=== PATIENT | female | born 1945 | race Caucasian/White ===

== ENCOUNTER 2016-04-22 12:22 | Inpatient (IN) | payer OTHER, MEDICAID ==
[~2016-04-22] VITALS: Ht 157.5 cm; Wt 66.0 kg
[~2016-04-22 12:22] MED LIST: IBUP400T22 PO; LORA-186 PO
[2016-04-22] MEDS ORDERED: ONDANSETRON 4 MG INJ IV STA (14:56)
[2016-04-22] MEDS ORDERED: morphine 4 MG/ML VIAL IV STA (14:56)
[2016-04-22] MEDS ORDERED: SOD CHLORIDE 0.9% 500 ML IV STA (14:56)
--- NOTE | 2016-04-22 15:41 | RADRPT ---
PROCEDURE: XR Chest AP portable CLINICAL INDICATION: Abdominal pain TECHNIQUE: An AP portable radiograph of the chest was submitted. COMPARISON: 03/27/2016 FINDINGS: Support Hardware: None Cardiovascular: The cardiovascular silhouette appears unremarkable, except for mild persistent aorti c tortuosity.. Lung Jaime: The lung jaime appear clear with no nodule, alveolar infiltrate, for a interstitial pr ominence evident. Pleural Spaces: No pneumothorax or pleural effusion is identified. Osseous Structures: Mild diffuse degenerative spine changes are again noted. Soft Tissues: The soft tissues appear generous. IMPRESSION: 1. Persistent aortic tortuosity. 2. Mild degenerative spine changes. Physician Melani Date Time Electronically viewed and signed by Physician Melani on 04/22/2016 15:41 /
[2016-04-22 15:53] LABS: BASOPHILS % 0.3 % (0.0-2.0); EOSINOPHILS # 0.4 10^3/ul (0.0-0.5); EOSINOPHILS % 6.8 % (0.0-7.0); HEMATOCRIT 35.6 % (37.0-47.0); HEMOGLOBIN 11.9 g/dl (12.0-16.0); LYMPHOCYTES # 1.9 10^3/ul (0.8-2.9); LYMPHOCYTES % 34.4 % (15.0-51.0); MEAN CORPUSCULAR HEMOGLOBIN 28.5 pg (29.0-33.0); MEAN CORPUSCULAR HGB CONC 33.4 g/dl (32.0-37.0); MEAN CORPUSCULAR VOLUME 85.3 fl (82.0-101.0); MEAN PLATELET VOLUME 7.7 fl (7.4-10.4); MONOCYTE # 0.3 10^3/ul (0.3-0.9); MONOCYTES % 5.1 % (0.0-11.0); NEUTROPHILS % 53.4 % (39.0-77.0); PLATELET COUNT 229 10^3/UL (140-440); RED BLOOD COUNT 4.18 10^6/ul (4.20-5.40); RED CELL DISTRIBUTION WIDTH 14.6 % (11.5-14.5); UNCORRECTED WBC 5.6 10^3/ul (4.8-10.8); WHITE BLOOD COUNT 5.6 10^3/ul (4.8-10.8)
--- NOTE | 2016-04-22 15:56 | RADRPT ---
PROCEDURE: CT Abdomen and Pelvis without contrast. CLINICAL INDICATION: Right lower quadrant abdominal pain. TECHNIQUE: Multiple contiguous axial CT images of the abdomen and pelvis were obtained without the administration of intravenous contrast. Coronal and sagittal reconstructions were also performed. CTDIvol (mGy): 10.73; Total Exam DLP (mGy-cm): 549.13. One or more of the following dose reduction techniques were utilized: - Automated exposure control. - Adjustment of the mA and/or kV according to patient size. - Use of iterative reconstruction technique. COMPARISON: None. FINDINGS: Limited imaging of the lower thorax is unremarkable. The liver and spleen are homogeneous in density. The liver is diffusely low in attenuation compatibl e with fatty infiltration. The gallbladder is not visualized. Cholecystectomy clips are not seen wi thin the gallbladder fossa. The pancreas and adrenal glands are unremarkable. The kidneys are symmetric in size. There are no nephroureteral stones. There is no hydronephrosis o r abnormal perinephric inflammation. The abdominal aorta is normal in caliber. Atherosclerotic calcification is present. There is no per iaortic / retroperitoneal lymphadenopathy. The stomach is collapsed. Mild dilatation of the ileum with intraluminal fecal material is present. There is a substantial amount of formed stool within the cecum with abrupt narrowing of the proxim al mid ascending colon. There is also pericolonic infiltration surrounding the cecum proximal mid a scending colon with scattered few tiny mesocolic lymph nodes. The appendix is normal. The bladder is collapsed. The uterus is absent. The adnexa are unremarkable. There is no free pelv ic fluid. There is no pelvic sidewall or inguinal lymphadenopathy. Lumbosacral degenerative disk disease is observed. Body wall soft tissues are unremarkable. IMPRESSION: Large amount of formed stool within the cecum with associated dilatation of the ileal small bowel wi th intraluminal fecal material. There is abrupt narrowing of the proximal midportion of the ascendi ng colon with infiltration of the immediate surrounding mesocolic fat. Tiny mesocolic lymph nodes a re also present. An obstructing colonic lesion of the proximal midportion of the ascending colon is concerning. Further characterization may be obtained with CT abdomen/pelvis with intravenous contra st. Fatty infiltration of the liver. RPTAT: HLST .Kimmy Maritza, MD, Date Time Electronically viewed and signed by .Kimmy Salas MD, on 04/22/2016 15:56 .T/
[2016-04-22 15:57] LABS: CONDITION 1; LH ANALYZER COMMENTS 1
[2016-04-22 16:01] LABS: ALBUMIN 4.3 g/dl (3.3-4.9)
[2016-04-22 16:04] LABS: ALBUMIN/GLOBULIN RATIO 1.1; BILIRUBIN,INDIRECT 0.3 mg/dl (0-1.1); BILIRUBIN,TOTAL 0.3 mg/dl (0.2-1.3); CALCIUM 9.1 mg/dl (8.4-10.2); CREATININE 0.62 mg/dl (0.44-1.00); TOTAL PROTEIN 8.2 g/dl (6.1-8.1)
[2016-04-22] MEDS ORDERED: IOHEXOL 300MG/ML 150 ML BTL ONE (17:30)
[2016-04-22] MEDS ORDERED: SOD CHLORIDE 0.9% 100 ML ONE (17:30)
--- NOTE | 2016-04-22 17:46 | ERA ---
ER Documentation Chief Complaint Date/Time DATE: 04/22/16 TIME: 17:44 Chief Complaint AP and cough X 1 month, yesterday inceased in severity aftyer eating fish. HPI 71-year-old female. Access Liaison use. The patient describes abdominal pain for approximately 1 month. The patient noticed that yesterday she had an episode of vomiting after eating fish. She denies any fevers chills or rash. She does describe occasional cough but not present currently. Abdominal pain is diffuse, moderate and nonradiating. ROS All systems reviewed and are negative except as per history of present illness. Medications Home Meds Discontinued Scripts Loratadine* (Claritin*) 10 Mg Tablet, 10 MG PO DAILY, #20 TAB Prov:EFE EPSTEIN PA-C 03/27/16 Ibuprofen* (Ibuprofen*) 400 Mg Tablet, 400 MG PO Q6H Y for PAIN, #30 TAB Prov:EFE EPSTEIN PA-C 03/27/16 Allergies Allergies: Coded Allergies: No Known Allergy (Unverified , 04/22/16) PMhx/Soc Medical and Surgical Hx: pt denies Medical Hx, pt denies Surgical Hx Hx Alcohol Use: No Hx Substance Use: No Hx Tobacco Use: No Smoking Status: Never smoker FmHx Family History: No diabetes Physical Exam Vitals Vital Signs Date Time Temp Pulse Resp B/P Pulse Ox O2 Delivery O2 Flow Rate FiO2 04/22/16 16:53 58 16 119/58 98 Room Air 04/22/16 12:35 98.8 75 16 114/73 97 Physical Exam General: Well developed, well nourished, no acute distress Head: Normocephalic, atraumatic. Eyes: Pupils equally reactive, EOM intact ENT: Moist mucous membranes Neck: Supple, no lymphadenopathy Respiratory: Lungs clear bilaterally, no distress Cardiovascular: RRR, no murmurs, rubs, or gallops Abdominal: Soft, mild diffuse tenderness without rebound or guarding : Deferred MSK: No edema, no unilateral swelling, 5/5 strength Neurologic: Alert and oriented, moving all extremities, normal speech, no focal weakness, no cerebellar signs Skin: No rash Psych: Normal mood Result Diagram: 04/22/16 1540 04/22/16 1540 Results 24 hrs Laboratory Tests Test 04/22/16 15:40 Alanine Aminotransferase (ALT/SGPT) 19IU/L Albumin 4.3g/dl Albumin/Globulin Ratio 1.10 Alkaline Phosphatase 88IU/L Anion Gap 17 Aspartate Amino Transf (AST/SGOT) 33IU/L Basophils # 0.010^3/ul Basophils % 0.3% Blood Morphology Comment Blood Urea Nitrogen 14mg/dl Calcium Level 9.1mg/dl Carbon Dioxide Level 24mmol/L Chloride Level 107mmol/L Creatinine 0.62mg/dl Direct Bilirubin 0.00mg/dl Eosinophils # 0.410^3/ul Eosinophils % 6.8% Globulin 3.90g/dl Glucose Level 88mg/dl Hematocrit 35.6% Hemoglobin 11.9g/dl Indirect Bilirubin 0.3mg/dl Lipase 74U/L Lymphocytes # 1.910^3/ul Lymphocytes % 34.4% Mean Corpuscular Hemoglobin 28.5pg Mean Corpuscular Hemoglobin Concent 33.4g/dl Mean Corpuscular Volume 85.3fl Mean Platelet Volume 7.7fl Monocytes # 0.310^3/ul Monocytes % 5.1% Neutrophils # 3.010^3/ul Neutrophils % 53.4% Nucleated Red Blood Cells # 0.010^3/ul Nucleated Red Blood Cells % 0.0/100WBC Platelet Count 07971^3/UL Potassium Level 4.0mmol/L Red Blood Count 4.1810^6/ul Red Cell Distribution Width 14.6% Sodium Level 144mmol/L Total Bilirubin 0.3mg/dl Total Protein 8.2g/dl White Blood Count 5.610^3/ul Current Medications Medications (Trade) Dose Ordered Sig/Jose Roberto Route PRN Reason Start Time Stop Time Status Last Admin Dose Admin Sodium Chloride (NS) 500 ml @ 500 mls/hr Q1H STAT IV 04/22/16 14:56 04/22/16 15:55 DC 04/22/16 16:03 Morphine Sulfate (morphine) 4 mg ONCE STAT IV 04/22/16 14:56 04/22/16 14:58 DC 04/22/16 16:02 Ondansetron HCl (Zofran Inj) 4 mg ONCE STAT IV 04/22/16 14:56 04/22/16 14:58 DC 04/22/16 16:02 IV Flush 10 ml 10 ml STK-MED ONCE .ROUTE 04/22/16 17:30 04/22/16 17:31 DC 04/22/16 17:44 Sodium Chloride (NS) 100 ml @ ud STK-MED ONCE .ROUTE 04/22/16 17:30 04/22/16 17:31 DC 04/22/16 17:44 Iohexol (Omnipaque 300mg/ ml) 150 ml STK-MED ONCE .ROUTE 04/22/16 17:30 04/22/16 17:31 DC 04/22/16 17:44 Ondansetron HCl (Zofran Inj) 4 mg BRIDGE ORDER PRN IV NAUSEA AND/OR VOMITING 04/22/16 18:00 04/23/16 17:59 Acetaminophen (Tylenol Tab) 650 mg ER BRIDGE PRN PO MILD PAIN/FEVER 04/22/16 18:00 04/23/16 17:59 Procedures/MDM EKG, MONITORS, & DIAGNOSTIC IMAGING: Chest x-ray: I reviewed and interpreted a 1 view of the chest Mediastinum: No enlargement Cardiac silhouette: No cardiomegaly Airspace: Clear lung jaime bilaterally without evidence of pneumothorax Bones: No evidence of fracture CT w/o IMPRESSION: Large amount of formed stool within the cecum with associated dilatation of the ileal small bowel with intraluminal fecal material. There is abrupt narrowing of the proximal midportion of the ascending colon with infiltration of the immediate surrounding mesocolic fat. Tiny mesocolic lymph nodes are also present. An obstructing colonic lesion of the proximal midportion of the ascending colon is concerning. Further characterization may be obtained with CT abdomen/pelvis with intravenous contrast. Fatty infiltration of the liver. CT w/ Contrast IMPRESSION: As seen on the CT earlier today, there is circumferential mucosal thickening of the proximal ascending colon measuring a length of 3.5 cm highly suspicious for an obstructing colonic neoplasm. There is resulting marked dilatation and formed stool seen in the cecum and terminal ileum. Recommend follow-up with colonoscopy and tissue sampling. There is pericolonic inflammatory changes and a superimposed enteritis is possible. The gallbladder is absent which may be related to prior cholecystectomy. There is intra and extrahepatic biliary dilatation which may be physiologic after cholecystectomy. Consider correlation with bilirubin values. RPTAT: AA LAB INTERPRETATION: No acute process is noted MEDICAL DECISION MAKING: The patient has abdominal pain. Unclear etiology however given the patient's tenderness and age CT imaging would be appropriate. Broad differential includes obstruction, acute intra-abdominal process. ER COURSE: CT imaging is very concerning for possible colonic mass which would explain the patient's symptoms. Radiology recommends CT with contrast which has been performed which confirms likely diagnosis. The patient will benefit from inpatient hospitalization, malignancy screening and likely colonoscopy nonemergent GI consultation will be appropriate. Admitting team will notify. I kept the patient and/or family informed of laboratory and diagnostic imaging results throughout the emergency room course. DISPOSITION PLAN: Medical surgical admission CONSULTATION: Accepting care team and consultations: I discussed the current laboratory data, diagnostic imaging and emergency care provided. Admitting team: Dr. Infante Admitting team indication: Insurance directed Departure Diagnosis: Primary Impression: Colonic mass Additional Impression: Abdominal pain Qualified Code: R10.9 - Abdominal pain, unspecified location Condition: Stable KYLIE LR MD Apr 22, 2016 17:46
[2016-04-22] MEDS ORDERED: ONDANSETRON 4 MG INJ IV PRN (18:00)
[2016-04-22] MEDS ORDERED: ACETAMINOPHEN 325 MG TAB PO PRN ×2 (18:00→19:00)
--- NOTE | 2016-04-22 18:03 | RADRPT ---
PROCEDURE: CT Abdomen and Pelvis with contrast. CLINICAL INDICATION: Abdominal pain TECHNIQUE: CT scan of the abdomen and pelvis with contrast was performed on a multidetector high-r esolution CT scanner. Coronal and sagittal reformatted images were obtained from the axial source im ages. Images were reviewed on a high-resolution PACS workstation. 80 cc of Isovue 300 iodinated cont rast was administered intravenously without reported complication. The total exam CTDI equals 12 mG y and the total exam DLP equals 612 mGy-cm. COMPARISON: Abdominal CT today FINDINGS: The lung bases are clear. No focal hepatic mass is identified. There is intrahepatic and extrahepatic biliary dilatation. Th e gallbladder is absent. The pancreas, spleen and adrenals are unremarkable. No hydronephrosis. No obstructing renal stone. As seen on the CT earlier in the day. There is circumferential mucosal thickening of the proximal a scending colon measuring a length of 3.5 cm with associated pericolonic inflammatory stranding. The re is resulting bowel obstruction with formed stool seen within the cecum. A few small regional prom inent lymph nodes are seen. There is also marked dilatation of the terminal ileum. The appendix is also mildly dilated. No bulky retroperitoneal lymphadenopathy or evidence of pneumoperitoneum. Aortoiliac atherosclerosis. Degenerative changes of the spine. IMPRESSION: As seen on the CT earlier today, there is circumferential mucosal thickening of the proximal ascendi ng colon measuring a length of 3.5 cm highly suspicious for an obstructing colonic neoplasm. There is resulting marked dilatation and formed stool seen in the cecum and terminal ileum. Recommend foll ow-up with colonoscopy and tissue sampling. There is pericolonic inflammatory changes and a superim posed enteritis is possible. The gallbladder is absent which may be related to prior cholecystectomy. There is intra and extrahe patic biliary dilatation which may be physiologic after cholecystectomy. Consider correlation with b ilirubin values. RPTAT: AA .Fito Jacobs MD, Date Time Electronically viewed and signed by .Fito Jacobs MD, on 04/22/2016 18:03 .T/
[2016-04-22] MEDS ORDERED: MAGNESIUM HYDROXIDE 30ML CUP PO PRN (19:00)
[2016-04-22] MEDS ORDERED: LORAZEPAM 2 MG INJ IV PRN (19:00)
[2016-04-22] MEDS ORDERED: ALBUTEROL/IPRATROPIUM (NEB) 3 ML AMP HHN PRN (19:00)
[2016-04-22] MEDS ORDERED: NA PHOSPHATE/BIPHOS 133 ML ENEMA PR PRN (19:00)
[2016-04-22] MEDS ORDERED: NITROGLYCERIN (SL) 0.4 MG TAB SL PRN (19:00)
[2016-04-22] MEDS ORDERED: NACL 0.9% 3 ML SYG IV SCH (19:00)
[2016-04-22] MEDS ORDERED: DOCUSATE SODIUM 100 MG CAP PO PRN (19:00)
[2016-04-22 20:15] VITALS: TEMP 98.5
[2016-04-22 21:28] VITALS: Ht 157.5 cm; Wt 66.0 kg
[2016-04-22 22:00] VITALS: BP 128/74; PULSE 80; RESP 18
[2016-04-22] MEDS: HEPARIN 5,000 UNIT/0.5 ML SYG SC SCH (22:37)
[2016-04-23] MEDS: HYDROCODONE/APAP (5/325) TAB PO PRN ×3 (01:38→22:35)
[2016-04-23 06:03] LABS: CHOL/HDL RATIO 4.5 RATIO
[2016-04-23] MEDS: PANTOPRAZOLE 40 MG INJ IV SCH (06:28)
[2016-04-23 06:34] LABS: BASOPHILS % 0.4 % (0.0-2.0); EOSINOPHILS # 0.2 10^3/ul (0.0-0.5); EOSINOPHILS % 4.9 % (0.0-7.0); HEMATOCRIT 32.8 % (37.0-47.0); HEMOGLOBIN 11.1 g/dl (12.0-16.0); LYMPHOCYTES # 2.2 10^3/ul (0.8-2.9); LYMPHOCYTES % 49.3 % (15.0-51.0); MEAN CORPUSCULAR HEMOGLOBIN 29.1 pg (29.0-33.0); MEAN CORPUSCULAR HGB CONC 33.8 g/dl (32.0-37.0); MEAN CORPUSCULAR VOLUME 86.1 fl (82.0-101.0); MEAN PLATELET VOLUME 7.6 fl (7.4-10.4); MONOCYTE # 0.4 10^3/ul (0.3-0.9); NEUTROPHIL # 1.7 10^3/ul (1.6-7.5); NEUTROPHILS % 37.4 % (39.0-77.0); PLATELET COUNT 223 10^3/UL (140-440); RED BLOOD COUNT 3.81 10^6/ul (4.20-5.40); RED CELL DISTRIBUTION WIDTH 14.6 % (11.5-14.5); UNCORRECTED WBC 4.4 10^3/ul (4.8-10.8); WHITE BLOOD COUNT 4.4 10^3/ul (4.8-10.8)
[2016-04-23 06:39] LABS: CONDITION 1; LH ANALYZER COMMENTS 1
[2016-04-23 07:13] LABS: POTASSIUM 3.7 mmol/L (3.5-5.1)
[2016-04-23 07:15] LABS: CREATININE 0.67 mg/dl (0.44-1.00)
[2016-04-23 07:16] LABS: CALCIUM 8.5 mg/dl (8.4-10.2)
[2016-04-23 07:33] LABS: THYROID STIMULATING HORMONE 1.33 MIU/L (0.465-4.680)
[2016-04-23 08:39] VITALS: BP 111/58; RESP 20
[2016-04-23] MEDS: HEPARIN 5,000 UNIT/0.5 ML SYG SC SCH ×2 (08:53→21:53)
--- NOTE | 2016-04-23 09:04 | HP ---
DATE OF ADMISSION: 04/22/2016 TIME: 10 p.m. CHIEF COMPLAINT: Abdominal pain. HISTORY OF PRESENT ILLNESS: The patient is a 71-year-old female with no past medical history. The patient presents with 1 day of abdominal pain. She did have an episode of emesis. Describes any pr ior symptoms of abdominal pain like this. She does report some occasional cough. She states that t he pain did improve with morphine given to her. She has no other complaints at this time. PAST MEDICAL HISTORY: Denies. PAST SURGICAL HISTORY: Hysterectomy for unknown reasons 30 years ago in [facility]. Likely cholec ystectomy. HOME MEDICATIONS: None. ALLERGIES: NO KNOWN DRUG ALLERGIES. FAMILY HISTORY: Denies. SOCIAL HISTORY: History of alcohol, tobacco and drug abuse in the past when she was young Denies an y use of them at this time. REVIEW OF SYSTEMS: A 12-point review of systems is negative except for that discussed in HPI. PHYSICAL EXAMINATION: VITAL SIGNS: Temperature is 98.0, pulse 80, respiratory rate is 18, BP is 120/74, saturation s 98% on room air. GENERAL: No acute distress, alert and oriented. German-speaking. HEENT: Normocephalic, atraumatic. LUNGS: Clear to auscultation. CARDIOVASCULAR: Regular rate and rhythm. ABDOMEN: Nondistended, nontender, soft. EXTREMITIES: No clubbing, cyanosis, or edema. LABORATORIES: White count 7.6, hemoglobin is 11.9, platelets are 229. Chemistry within normal limi ts except for anion gap is slightly elevated at 17, total protein is 8.2. DIAGNOSTICS: Chest x-ray shows persistent aortic tortuosity, mild degenerative spine changes. Abdo ria pelvis CT does show mucosal thickening of the proximal ascending colon measuring 2.5 cm, highly suspicious for an obstructing colonic neoplasm. There is resulting marked dilation of forme d stool seen in the cecum and terminal ileum. Recommend [facility]. There is pericolonic inflammatory changes and a superimposed enteritis possible. ASSESSMENT AND PLAN: 1. Abdominal pain with possible colonic mass. Will get a GI consultation for colonoscopy. Will ch lindsey tumor markers with a CEA and CA 19-9 and 125 as well as AFP. The patient's pain has resolved at this time. She denies any changes in her bowel movements. 2. Normocytic anemia is mild. Will monitor. 3. Prophylaxis. Heparin. Dictated By: YELENA COELHO/LAURA Conf#: [id number] DID#: [id number]
--- NOTE | 2016-04-23 13:38 | RADRPT ---
Echocardiogram Report Patient Name: CIARA GLEASON Gender: Female Date: 1945 Study Date: 23-Apr-2016 Tower Watchman: Won Chong [facility] Location: 2266 Ref. Physician: MICHAEL FUCHS Quality: Good Procedures: Transthoracic echocardiogram with complete 2D, M-Mode, and doppler examination. Indications: Shortness of breath. 2D/M Mode Doppler Measurement Value Normal Ranges Measurement Value Normal Ranges LVIDd 2D 4.1 3.5 - 5.6 cm AV Peak Orestes 1.4 m/sec LVIDs 2D 2.2 2.1 - 4.1 cm AV Peak PG 7.3 mmHg LVPWd 2D 1.0 0.6 - 1.1 cm LVOT Peak Orestes 1.1 m/sec IVSd 2D 1.0 0.6 - 1.1 cm LVOT Peak PG 4.8 mmHg AoR Diam 2D 2.4 2.0 - 3.7 cm MV E Peak Orestes 0.9 m/sec EDV 2D 72.3 cm3 MV A Peak Orestes 0.7 m/sec ESV 2D 10.0 cm3 MV E/A 1.3 LA Dimen 2D 3.1 2.3 - 4.0 cm MV Decel Time 183 msec MV Decel [place] 5 MV E/A 1.3 TR Peak Orestes 2.0 m/sec TR Peak PG 16.2 mmHg RVSP 19.0 mmHg Findings Left Ventricle: Normal left ventricular systolic function. Normal left ventricular cavity size. Normal left ventricular wall thickness. Ejection fraction is visually estimated at 65 %. Right Ventricle: Normal right ventricular size. Normal right ventricular systolic function. Left Atrium: The left atrium is normal in size. Right Atrium: The right atrium is normal in size. Mitral Valve: Normal appearance and function of the mitral valve with trace physiologic regurgitation. Aortic Valve: Normal appearance of the aortic valve. No significant aortic stenosis or insufficiency. Tricuspid Valve: Normal appearance and function of the tricuspid valve with trace physiologic regurgitation. Estimated peak PA systolic pressure 19 mmHg. Pericardium: Normal pericardium with no significant pericardial effusion. Aorta: Normal aortic root. IVC: Normal size and normal respiratory collapse consistent with normal right atrial pressure. Conclusions Normal left ventricular systolic function. Normal left ventricular cavity size. Normal left ventricular wall thickness. Ejection fraction is visually estimated at 65 %. No significant valvular stenosis or regurgitation seen. Estimated peak PA systolic pressure 19 mmHg based on RA pressure of 3 mmHg. Electronically Signed By: Juarez Boss 23-Apr-2016 13:37:34 -0800 Patient Name: CIARA GLEASON Study Date: 23-Apr-[id number]
--- NOTE | 2016-04-23 15:23 | PN ---
DATE: 04/23/2016 SUBJECTIVE: The patient has less abdominal pain, no nausea, no vomiting. Asking when she can go ho me. Still waiting to be seen by GI team. OBJECTIVE: VITAL SIGNS: Stable. GENERAL: The patient lying in bed, answering questions, in no acute distress. HEENT: Pupils equal, round, reactive to light. Extraocular muscles intact. NECK: Supple, no thyromegaly. LUNGS: Clear to auscultation bilaterally. CARDIOVASCULAR: S1, S2 heard. No rubs or gallops. ABDOMEN: Soft, nontender, nondistended. Normal bowel sounds. No rebound or guarding. MUSCULOSKELETAL: No lower extremity edema bilaterally. NEUROLOGIC: No focal deficits. LABORATORY DATA: The basic metabolic panel was normal today. The triglycerides are 195, but the re st of the cholesterol panel was normal. Thyroid panel was normal. CBC is normal. ASSESSMENT AND PLAN: This is a 71-year-old female with no significant past medical history presenti with abdominal pain found with mucosal thickening of the proximal ascending colon measuring about 2 to 3 cm, highly suspicious for obstructing colon neoplasm. 1. Abdominal pain. Again, there is possible finding of colon mass. We will keep the patient on ga d/surg floor. We will start her on clear liquid diet since she is hungry. We will check tumor mar kers, CEA, CA 19-9, CA125 and AFP as there is a concern of possible malignancy here. Will get a GI consult. The patient would benefit from a colonoscopy and biopsy of the mass. Consider hematology/ oncology consult as well. Continue pain control with morphine and [place] p.r.n. as well. Antiemetic control with Zofran p.r.n. 2. Normocytic anemia. No signs of any bleeding. Hemoglobin and hematocrit are stable. Monitor fo r now. 3. Gastrointestinal prophylaxis, proton pump inhibitor. 4. Deep venous thrombosis prophylaxis, heparin subcutaneously. 5. Consider PT consult as well. Dictated By: MICHAEL GILLESPIE Conf#: [id number] DID#: [id number]
[2016-04-23] MEDS ORDERED: MAGNESIUM CITRATE 300 ML BTL PO ONE (18:30)
[2016-04-23] MEDS ORDERED: BISACODYL (EC) 5 MG TAB PO ONE ×2 (18:30→23:00)
--- NOTE | 2016-04-23 18:57 | CONS ---
Date/Time of Note Date/Time of Note DATE: 04/23/16 TIME: 18:55 Assessment/Plan Assessment/Plan Additional Assessment/Plan Abdominal pain/nausea/vomiting, improving Normocytic anemia * Monitor H&H every 6 hours, transfuse 2 units for hemoglobin less than 7.5 * PPI therapy Rectal mass * Colonoscopy with Dr. Maxwell tomorrow afternoon * Bowel prep Obesity Further recommendations depend on clinical course Patient seen in collaboration with Dr. Maxwell Consultation Date/Type/Reason Admit Date/Time Apr 22, 2016 at 17:47 Initial Consult Date Type of Consultation: Gastroenterology Reason for Consultation colonic mass 24 HR Interval Summary Free Text/Dictation 71-year-old Amharic-speaking female presented to ED with complaints of 1 day of abdominal pain, with nausea and nonbloody bilious emesis. Denies previous episode, GERD, diarrhea, hematochezia. CT of abdomen notes: As seen on the CT earlier today, there is circumferential mucosal thickening of the proximal ascending colon measuring a length of 3.5 cm highly suspicious for an obstructing colonic neoplasm. There is resulting marked dilatation and formed stool seen in the cecum and terminal ileum. Recommend follow-up with colonoscopy and tissue sampling. There is pericolonic inflammatory changes and a superimposed enteritis is possible. Patient consents to colonoscopy, advised of risks/benefits/alternatives and is agreeable to proceed. Exam/Review of Systems Vital Signs Vitals Vital Signs Date Time Temp Pulse Resp B/P Pulse Ox O2 Delivery O2 Flow Rate FiO2 04/23/16 08:39 98.0 58 20 111/58 94 04/22/16 22:00 Room Air Exam Constitutional: alert, obese, oriented, well developed Psych: nl mood/affect, no complaints ENMT: nl external ears & nose, nl lips & teeth, nl nasal mucosa & septum Respiratory: clear to auscultation Cardiovascular: regular rate and rhythm Gastrointestinal: soft, tender (Lower abdomen) Neurological: WHEEL MOLDER II-XII intact Results Result Diagram: 04/23/16 0516 04/23/16 0516 Results 24 hrs Laboratory Tests Test 04/22/16 19:10 04/23/16 05:16 Free Thyroxine 0.97 Anion Gap 16 Basophils # 0.0 Basophils % 0.4 Blood Morphology Comment Blood Urea Nitrogen 15 Calcium Level 8.5 Carbon Dioxide Level 25 Chloride Level 106 Cholesterol Level 165 Cholesterol/HDL Ratio 4.5 Creatinine 0.67 Eosinophils # 0.2 Eosinophils % 4.9 Glucose Level 105 HDL Cholesterol 36 Hematocrit 32.8 L Hemoglobin 11.1 L Hemoglobin A1c 5.8 LDL Cholesterol, Calculated 90 Lymphocytes # 2.2 Lymphocytes % 49.3 Mean Corpuscular Hemoglobin 29.1 Mean Corpuscular Hemoglobin Concent 33.8 Mean Corpuscular Volume 86.1 Mean Platelet Volume 7.6 Monocytes # 0.4 Monocytes % 8.0 Neutrophils # 1.7 Neutrophils % 37.4 L Nucleated Red Blood Cells # 0.0 Nucleated Red Blood Cells % 0.0 Platelet Count 223 Potassium Level 3.7 Red Blood Count 3.81 L Red Cell Distribution Width 14.6 H Sodium Level 143 Thyroid Stimulating Hormone (TSH) 1.330 Triglycerides Level 195 H White Blood Count 4.4 #L Medications Medications Current Medications Ondansetron HCl (Zofran Inj) 4 mg Q6H PRN IV NAUSEA AND/OR VOMITING; Start 04/22 at 19:00 Acetaminophen (Tylenol Tab) 650 mg Q6H PRN PO PAIN LEVEL 1-3 OR FEVER; Start at 19:00 Acetaminophen/ Hydrocodone Bitart ([place] (5/325)) 1 tab Q6H PRN PO MODERATE PAIN LEVEL 4-6 Last administered on 04/23/16 08:57; Admin Dose 1 TAB; Start 04/22 at 19:00 Morphine Sulfate (morphine) 2 mg Q4H PRN IV SEVERE PAIN LEVEL 7-10; Start at 19:00 Docusate Sodium (Colace) 100 mg Q12H PRN PO CONSTIPATION; Start 04/22/16 at 19: 00 Magnesium Hydroxide (Milk Of Mag) 30 ml DAILY PRN PO CONSTIPATION; Start at 19:00 Sodium Biphosphate/ Sodium Phosphate (Fleet Enema) 133 ml DAILY PRN [place] CONSTIPATION; Start 04/22/16 at 19:00 Heparin Sodium (Porcine) (Heparin (5000 Units/0.5 ml)) 5,000 unit Q12 SC Last administered on 04/23/16 08:53; Admin Dose 5,000 UNIT; Start 04/22/16 at 21:00 Lorazepam (Ativan) 0.5 mg Q6H PRN IV ANXIETY; Start 04/22/16 at 19:00 Nitroglycerin (Nitroglycerin (Sl Tab) 0.4 Mg) 1 tab Q5M PRN SL ANGINA; Start at 19:00 Pantoprazole (Protonix Iv) 40 mg DAILY@06 IV Last administered on 04/23/16t 06: 28; Admin Dose 40 MG; Start 04/23/16 at 06:00 Fenofibrate (Tricor) 48 mg DAILY PO ; Start 04/24/16 at 09:00 Polyethylene Glycol (Miralax) 119 gm ONCE ONCE PO ; Start 04/23/16 at 21:00; Stop 04/23/16 at 21:01 MICKI VALDIVIA Apr 23, 2016 18:57
[2016-04-23 19:49] VITALS: BP 144/69; RESP 20
[2016-04-23] MEDS ORDERED: POLYETHYLENE GLYCOL 3350 119 GM POWDER PO ONE ×2 (21:00→23:00)
[2016-04-23 22:23] LABS: CARCINOEMBRYONIC ANTIGEN 7.5 ng/ml (0.0-5.0)
[2016-04-23 22:27] LABS: CANCER ANTIGEN 19-9 10.6 U/ml (0.0-37.0)
[2016-04-24] VITALS (8 sets, daily range): BP systolic 101–140; BP diastolic 55–86; PULSE 64–69; RESP 11–20
[2016-04-24] MEDS: PANTOPRAZOLE 40 MG INJ IV SCH (05:13)
[2016-04-24 05:47] LABS: INR 1.02; PARTIAL THROMBOPLASTIN TIME 27.1 Sec (25.0-35.0); PROTIME 13.4 Sec (12.2-14.2)
[2016-04-24 06:07] LABS: BASOPHILS % 0.4 % (0.0-2.0); EOSINOPHILS # 0.3 10^3/ul (0.0-0.5); EOSINOPHILS % 5.2 % (0.0-7.0); HEMATOCRIT 34.9 % (37.0-47.0); HEMOGLOBIN 11.9 g/dl (12.0-16.0); LYMPHOCYTES # 1.4 10^3/ul (0.8-2.9); LYMPHOCYTES % 26.7 % (15.0-51.0); MEAN CORPUSCULAR HEMOGLOBIN 29.2 pg (29.0-33.0); MEAN CORPUSCULAR HGB CONC 34.1 g/dl (32.0-37.0); MEAN CORPUSCULAR VOLUME 85.8 fl (82.0-101.0); MEAN PLATELET VOLUME 8.1 fl (7.4-10.4); MONOCYTE # 0.3 10^3/ul (0.3-0.9); MONOCYTES % 4.7 % (0.0-11.0); NEUTROPHIL # 3.4 10^3/ul (1.6-7.5); PLATELET COUNT 234 10^3/UL (140-440); RED BLOOD COUNT 4.07 10^6/ul (4.20-5.40); RED CELL DISTRIBUTION WIDTH 14.5 % (11.5-14.5); UNCORRECTED WBC 5.4 10^3/ul (4.8-10.8); WHITE BLOOD COUNT 5.4 10^3/ul (4.8-10.8)
[2016-04-24 06:14] LABS: CONDITION 1
[2016-04-24 06:15] LABS: LH ANALYZER COMMENTS 1
[2016-04-24 07:01] LABS: POTASSIUM 3.6 mmol/L (3.5-5.1)
[2016-04-24 07:04] LABS: CREATININE 0.67 mg/dl (0.44-1.00)
[2016-04-24] MEDS: FENOFIBRATE 48 MG TAB PO SCH (09:00)
[2016-04-24] MEDS: HEPARIN 5,000 UNIT/0.5 ML SYG SC SCH ×2 (09:00→20:12)
--- NOTE | 2016-04-24 13:38 | PN ---
Date/Time of Note Date/Time of Note DATE: 04/24/16 TIME: 13:32 Assessment/Plan VTE Prophylaxis VTE Prophylaxis Intervention: heparin Lines/Catheters IV C[facility]ter Type [facility]from [facility] [place] Urinary Cath still in place: No Assessment/Plan Chief Complaint/Hosp Course ASSESSMENT AND PLAN: 71-year-old female with no significant past medical history presenting with abdominal pain found with mucosal thickening of the proximal ascending colon measuring about 2 to 3 cm, highly suspicious for obstructing colon neoplasm. 1. Abdominal pain. Again, there is possible finding of colon mass. - continue med/surg floor care. - f/u CEA, CA 19-9, CA125 and AFP as there is a concern of possible malignancy here. - appreciate GI consult, plan for colonscopy later today. - Consider hematology/oncology consult as well. - Continue pain control with morphine and [place] p.r.n. as well. - Antiemetic control with Zofran p.r.n. 2. Normocytic anemia. No signs of any bleeding. Hemoglobin and hematocrit are stable. Monitor for now. 3. Gastrointestinal prophylaxis, proton pump inhibitor. 4. Deep venous thrombosis prophylaxis, heparin subcutaneously. Problems: Subjective 24 Hr Interval Summary Free Text/Dictation Seen by GI team, denies abd pain. Awaiting colonscopy for later today. Exam/Review of Systems Vital Signs Vitals Vital Signs Date Time Temp Pulse Resp B/P Pulse Ox O2 Delivery O2 Flow Rate FiO2 04/24/16 07:54 98.3 78 20 101/59 98 04/22/16 22:00 Room Air Intake and Output 04/23/16 04/23/16 04/24/16 15:00 23:00 07:00 Intake Total 680 ml 2000 ml Output Total 4 ml Balance 676 ml 2000 ml Exam GENERAL: The patient lying in bed, answering questions, in no acute distress. HEENT: Pupils equal, round, reactive to light. Extraocular muscles intact. NECK: Supple, no thyromegaly. LUNGS: Clear to auscultation bilaterally. CARDIOVASCULAR: S1, S2 heard. No rubs or gallops. ABDOMEN: Soft, nontender, nondistended. Normal bowel sounds. No rebound or guarding. MUSCULOSKELETAL: No lower extremity edema bilaterally. NEUROLOGIC: No focal deficits. Results Result Diagram: 04/24/1641904/24/16419 Results 24 hrs Laboratory Tests Test 04/23/16 16:37 04/24/16 04:20 Alpha Fetoprotein 2.98 CA 125 Antigen 6.0 CA 19-9 Antigen 10.6 Carcinoembryonic Antigen 7.5 H Activated Partial Thromboplast Time 27.1 Anion Gap 16 Basophils # 0.0 Basophils % 0.4 Blood Morphology Comment Blood Urea Nitrogen 14 Calcium Level 9.0 Carbon Dioxide Level 26 Chloride Level 104 Creatinine 0.67 Eosinophils # 0.3 Eosinophils % 5.2 Glucose Level 124 Hematocrit 34.9 L Hemoglobin 11.9 L INR International Normalized Ratio 1.02 Lymphocytes # 1.4 Lymphocytes % 26.7 Mean Corpuscular Hemoglobin 29.2 Mean Corpuscular Hemoglobin Concent 34.1 Mean Corpuscular Volume 85.8 Mean Platelet Volume 8.1 Monocytes # 0.3 Monocytes % 4.7 Neutrophils # 3.4 Neutrophils % 63.0 Nucleated Red Blood Cells # 0.0 Nucleated Red Blood Cells % 0.0 Platelet Count 234 Potassium Level 3.6 Prothrombin Time 13.4 Prothrombin Time Ratio 1.0 Red Blood Count 4.07 L Red Cell Distribution Width 14.5 Sodium Level 142 White Blood Count 5.4 # Medications Medications Current Medications Ondansetron HCl (Zofran Inj) 4 mg Q6H PRN IV NAUSEA AND/OR VOMITING; Start 04/22 at 19:00 Acetaminophen (Tylenol Tab) 650 mg Q6H PRN PO PAIN LEVEL 1-3 OR FEVER; Start at 19:00 Acetaminophen/ Hydrocodone Bitart ([place] (5/325)) 1 tab Q6H PRN PO MODERATE PAIN LEVEL 4-6 Last administered on 04/23/16t 22:35; Admin Dose 1 TAB; Start 04/22 at 19:00 Morphine Sulfate (morphine) 2 mg Q4H PRN IV SEVERE PAIN LEVEL 7-10; Start at 19:00 Docusate Sodium (Colace) 100 mg Q12H PRN PO CONSTIPATION; Start 04/22/16 at 19: 00 Magnesium Hydroxide (Milk Of Mag) 30 ml DAILY PRN PO CONSTIPATION; Start at 19:00 Sodium Biphosphate/ Sodium Phosphate (Fleet Enema) 133 ml DAILY PRN [place] CONSTIPATION; Start 04/22/16 at 19:00 Heparin Sodium (Porcine) (Heparin (5000 Units/0.5 ml)) 5,000 unit Q12 SC Last administered on 04/23/16 21:53; Admin Dose 5,000 UNIT; Start 04/22/16 at 21:00 Lorazepam (Ativan) 0.5 mg Q6H PRN IV ANXIETY; Start 04/22/16 at 19:00 Nitroglycerin (Nitroglycerin (Sl Tab) 0.4 Mg) 1 tab Q5M PRN SL ANGINA; Start at 19:00 Pantoprazole (Protonix Iv) 40 mg DAILY@06 IV Last administered on 04/24/16 05: 13; Admin Dose 40 MG; Start 04/23/16 at 06:00 Fenofibrate (Tricor) 48 mg DAILY PO ; Start 04/24/16 at 09:00 MICHAEL FUCHS Apr 24, 2016 13:38
[2016-04-24] MEDS ORDERED: PROPOFOL 40 ML ONE (16:25)
[2016-04-25] MEDS: PANTOPRAZOLE 40 MG INJ IV SCH (06:25)
[2016-04-25 07:32] VITALS: BP 112/58; RESP 20
[2016-04-25] MEDS: FENOFIBRATE 48 MG TAB PO SCH (08:09)
[2016-04-25] MEDS: HEPARIN 5,000 UNIT/0.5 ML SYG SC SCH ×2 (08:11→19:32)
[2016-04-25 08:51] LABS: BASOPHILS % 0.3 % (0.0-2.0); EOSINOPHILS # 0.3 10^3/ul (0.0-0.5); EOSINOPHILS % 6.5 % (0.0-7.0); HEMOGLOBIN 11.7 g/dl (12.0-16.0); LYMPHOCYTES # 1.7 10^3/ul (0.8-2.9); LYMPHOCYTES % 31.8 % (15.0-51.0); MEAN CORPUSCULAR HEMOGLOBIN 28.8 pg (29.0-33.0); MEAN CORPUSCULAR HGB CONC 33.4 g/dl (32.0-37.0); MEAN CORPUSCULAR VOLUME 86.1 fl (82.0-101.0); MEAN PLATELET VOLUME 7.5 fl (7.4-10.4); MONOCYTE # 0.3 10^3/ul (0.3-0.9); MONOCYTES % 6.3 % (0.0-11.0); NEUTROPHIL # 2.9 10^3/ul (1.6-7.5); NEUTROPHILS % 55.1 % (39.0-77.0); PLATELET COUNT 237 10^3/UL (140-440); RED BLOOD COUNT 4.07 10^6/ul (4.20-5.40); RED CELL DISTRIBUTION WIDTH 14.5 % (11.5-14.5); UNCORRECTED WBC 5.2 10^3/ul (4.8-10.8); WHITE BLOOD COUNT 5.2 10^3/ul (4.8-10.8)
[2016-04-25 09:02] LABS: CONDITION 1; LH ANALYZER COMMENTS 1
[2016-04-25 09:13] LABS: POTASSIUM 3.3 mmol/L (3.5-5.1)
[2016-04-25 09:16] LABS: CALCIUM 8.6 mg/dl (8.4-10.2); CREATININE 0.71 mg/dl (0.44-1.00)
--- NOTE | 2016-04-25 12:08 | CONS ---
Date/Time of Note Date/Time of Note DATE: 04/25/16 TIME: 12:07 Assessment/Plan Assessment/Plan Additional Assessment/Plan Abdominal pain/nausea/vomiting, improving Normocytic anemia * Monitor H&H every 6 hours, transfuse 2 units for hemoglobin less than 7.5 * PPI therapy Rectal mass * Colonoscopy * Large partially obstructing mass mid descending colon, biopsied and tattooed * Moderate sized internal hemorrhoids * Follow-up on pathology * Recommend oncology consult * Recommend surgery consult Obesity Further recommendations depend on clinical course Patient seen in collaboration with Dr. Maxwell Consultation Date/Type/Reason Admit Date/Time Apr 24, 2016 at 10:36 Type of Consultation: Gastroenterology 24 HR Interval Summary Free Text/Dictation Denies abdominal pain, nausea, vomiting Tolerating diet Pathology pending Exam/Review of Systems Vital Signs Vitals Vital Signs Date Time Temp Pulse Resp B/P Pulse Ox O2 Delivery O2 Flow Rate FiO2 04/25/16 07:32 98.8 80 20 112/58 96 04/24/16 17:00 Room Air Intake and Output 04/24/16 04/24/16 04/25/16 15:00 23:00 07:00 Intake Total 150 ml 100 ml Balance 150 ml 100 ml Exam Constitutional: alert, obese, oriented, well developed Psych: nl mood/affect, no complaints ENMT: nl external ears & nose, nl lips & teeth, nl nasal mucosa & septum Respiratory: clear to auscultation Cardiovascular: regular rate and rhythm Gastrointestinal: soft, tender (Lower abdomen) Neurological: HE[employer] II-XII intact Results Result Diagram: 04/25/16 0836 04/25/16 0836 Results 24 hrs Laboratory Tests Test 04/25/16 08:36 Anion Gap 18 H Basophils # 0.0 Basophils % 0.3 Blood Morphology Comment Blood Urea Nitrogen 13 Calcium Level 8.6 Carbon Dioxide Level 22 Chloride Level 106 Creatinine 0.71 Eosinophils # 0.3 Eosinophils % 6.5 Glucose Level 158 Hematocrit 35.0 L Hemoglobin 11.7 L Lymphocytes # 1.7 Lymphocytes % 31.8 Mean Corpuscular Hemoglobin 28.8 L Mean Corpuscular Hemoglobin Concent 33.4 Mean Corpuscular Volume 86.1 Mean Platelet Volume 7.5 Monocytes # 0.3 Monocytes % 6.3 Neutrophils # 2.9 Neutrophils % 55.1 Nucleated Red Blood Cells # 0.0 Nucleated Red Blood Cells % 0.0 Platelet Count 237 Potassium Level 3.3 L Red Blood Count 4.07 L Red Cell Distribution Width 14.5 Sodium Level 143 White Blood Count 5.2 Medications Medications Current Medications Ondansetron HCl (Zofran Inj) 4 mg Q6H PRN IV NAUSEA AND/OR VOMITING; Start 04/22 at 19:00 Acetaminophen (Tylenol Tab) 650 mg Q6H PRN PO PAIN LEVEL 1-3 OR FEVER; Start at 19:00 Acetaminophen/ Hydrocodone Bitart ([place] (5/325)) 1 tab Q6H PRN PO MODERATE PAIN LEVEL 4-6 Last administered on 04/23/16 22:35; Admin Dose 1 TAB; Start 04/22 at 19:00 Morphine Sulfate (morphine) 2 mg Q4H PRN IV SEVERE PAIN LEVEL 7-10; Start at 19:00 Docusate Sodium (Colace) 100 mg Q12H PRN PO CONSTIPATION; Start 04/22/16 at 19: 00 Magnesium Hydroxide (Milk Of Mag) 30 ml DAILY PRN PO CONSTIPATION; Start at 19:00 Sodium Biphosphate/ Sodium Phosphate (Fleet Enema) 133 ml DAILY PRN [place] CONSTIPATION; Start 04/22/16 at 19:00 Heparin Sodium (Porcine) (Heparin (5000 Units/0.5 ml)) 5,000 unit Q12 SC Last administered on 04/25/16 08:11; Admin Dose 5,000 UNIT; Start 04/22/16 at 21:00 Lorazepam (Ativan) 0.5 mg Q6H PRN IV ANXIETY; Start 04/22/16 at 19:00 Nitroglycerin (Nitroglycerin (Sl Tab) 0.4 Mg) 1 tab Q5M PRN SL ANGINA; Start at 19:00 Pantoprazole (Protonix Iv) 40 mg DAILY@06 IV Last administered on 04/25/16 06: 25; Admin Dose 40 MG; Start 04/23/16 at 06:00 Fenofibrate (Tricor) 48 mg DAILY PO Last administered on 04/25/16 08:09; Admin Dose 48 MG; Start 04/24/16 at 09:00 MICKI VALDIVIA Apr 25, 2016 12:08
--- NOTE | 2016-04-25 15:36 | PN ---
Date/Time of Note Date/Time of Note DATE: 04/25/16 TIME: 15:33 Assessment/Plan VTE Prophylaxis VTE Prophylaxis Intervention: heparin Lines/Catheters IV [facility]ter Type (from [facility]): Peripheral IV Urinary Cath still in place: No Assessment/Plan Chief Complaint/Hosp Course ASSESSMENT AND PLAN: 71-year-old female with no significant past medical history presenting with abdominal pain found with mucosal thickening of the proximal ascending colon measuring about 2 to 3 cm, highly suspicious for obstructing colon neoplasm. 1. Abdominal pain. Again, there is finding of colon mass, now s/p colonscopy with findings of large partially obstructing mass mid descending colon, biopsied and tattooed and moderate sized internal hemorrhoids - continue med/surg floor care. - CEA is somewhat elevated, as there is a concern of possible malignancy here. - appreciate GI consult, will also get Heme/Onc and Gen surgery consults as well. - Continue pain control with morphine and [place] p.r.n. as well. - Antiemetic control with Zofran p.r.n. 2. Normocytic anemia. No signs of any bleeding. Hemoglobin and hematocrit are stable. Monitor for now. 3. Gastrointestinal prophylaxis, proton pump inhibitor. 4. Deep venous thrombosis prophylaxis, heparin subcutaneously. Problems: Subjective 24 Hr Interval Summary Free Text/Dictation Pt had colonscopy yesterday, no abd pain presently, tolerating PO diet. Awaiting surgey and Heme onc consults now as well. Exam/Review of Systems Vital Signs Vitals Vital Signs Date Time Temp Pulse Resp B/P Pulse Ox O2 Delivery O2 Flow Rate FiO2 04/25/16 07:32 98.8 80 20 112/58 96 04/24/16 17:00 Room Air Intake and Output 04/24/16 04/24/16 04/25/16 15:00 23:00 07:00 Intake Total 150 ml 100 ml Balance 150 ml 100 ml Exam GENERAL: The patient lying in bed, answering questions, in no acute distress. HEENT: Pupils equal, round, reactive to light. Extraocular muscles intact. NECK: Supple, no thyromegaly. LUNGS: Clear to auscultation bilaterally. CARDIOVASCULAR: S1, S2 heard. No rubs or gallops. ABDOMEN: Soft, nontender, nondistended. Normal bowel sounds. No rebound or guarding. MUSCULOSKELETAL: No lower extremity edema bilaterally. NEUROLOGIC: No focal deficits. Results Result Diagram: 04/25/16 0836 04/25/16 0836 Results 24 hrs Laboratory Tests Test 04/25/16 08:36 Anion Gap 18 H Basophils # 0.0 Basophils % 0.3 Blood Morphology Comment Blood Urea Nitrogen 13 Calcium Level 8.6 Carbon Dioxide Level 22 Chloride Level 106 Creatinine 0.71 Eosinophils # 0.3 Eosinophils % 6.5 Glucose Level 158 Hematocrit 35.0 L Hemoglobin 11.7 L Lymphocytes # 1.7 Lymphocytes % 31.8 Mean Corpuscular Hemoglobin 28.8 L Mean Corpuscular Hemoglobin Concent 33.4 Mean Corpuscular Volume 86.1 Mean Platelet Volume 7.5 Monocytes # 0.3 Monocytes % 6.3 Neutrophils # 2.9 Neutrophils % 55.1 Nucleated Red Blood Cells # 0.0 Nucleated Red Blood Cells % 0.0 Platelet Count 237 Potassium Level 3.3 L Red Blood Count 4.07 L Red Cell Distribution Width 14.5 Sodium Level 143 White Blood Count 5.2 Medications Medications Current Medications Ondansetron HCl (Zofran Inj) 4 mg Q6H PRN IV NAUSEA AND/OR VOMITING; Start 04/22 at 19:00 Acetaminophen (Tylenol Tab) 650 mg Q6H PRN PO PAIN LEVEL 1-3 OR FEVER; Start at 19:00 Acetaminophen/ Hydrocodone Bitart ([place] (5/325)) 1 tab Q6H PRN PO MODERATE PAIN LEVEL 4-6 Last administered on 04/23/16 22:35; Admin Dose 1 TAB; Start 04/22 at 19:00 Morphine Sulfate (morphine) 2 mg Q4H PRN IV SEVERE PAIN LEVEL 7-10; Start at 19:00 Docusate Sodium (Colace) 100 mg Q12H PRN PO CONSTIPATION; Start 04/22/16 at 19: 00 Magnesium Hydroxide (Milk Of Mag) 30 ml DAILY PRN PO CONSTIPATION; Start at 19:00 Sodium Biphosphate/ Sodium Phosphate (Fleet Enema) 133 ml DAILY PRN [place] CONSTIPATION; Start 04/22/16 at 19:00 Heparin Sodium (Porcine) (Heparin (5000 Units/0.5 ml)) 5,000 unit Q12 SC Last administered on 04/25/16 08:11; Admin Dose 5,000 UNIT; Start 04/22/16 at 21:00 Lorazepam (Ativan) 0.5 mg Q6H PRN IV ANXIETY; Start 04/22/16 at 19:00 Nitroglycerin (Nitroglycerin (Sl Tab) 0.4 Mg) 1 tab Q5M PRN SL ANGINA; Start at 19:00 Pantoprazole (Protonix Iv) 40 mg DAILY@06 IV Last administered on 04/25/16 06: 25; Admin Dose 40 MG; Start 04/23/16 at 06:00 Fenofibrate (Tricor) 48 mg DAILY PO Last administered on 04/25/16 08:09; Admin Dose 48 MG; Start 04/24/16 at 09:00 MICHAEL FUCHS Apr 25, 2016 15:36
--- NOTE | 2016-04-25 18:01 | CONS ---
Date/Time of Note Date/Time of Note DATE: 04/25/16 TIME: 17:48 Assessment/Plan Assessment/Plan Chief Complaint/Hosp Course Abdominal pain /nausea/vomiting,associated with colonic mass in the mid descending colon * post Colonoscopy * Large partially obstructing mass mid descending colon, biopsied and tattooed * Moderate sized internal hemorrhoids * pathology- P * CEA- MIN ELEVATED AT 7.5 * CT AP- NO METASTATIC DIS * Recommend surgery consult Normocytic anemia WITH N RDW * Monitor H&H every 6 hours, transfuse 2 units for hemoglobin less than 7.5 * PPI therapy * CHECK IRON STUDIES AND FERRITIN HYPOKALEMIA REPLACE MONITOR INCREASED TOTAL PROTEIN RECHECK MONITOR Obesity Problems: Consultation Date/Type/Reason Admit Date/Time Apr 24, 2016 at 10:36 Date of Consultation: Apr 25, 2016 Type of Consultation: HEMEONC Reason for Consultation COLON MASS Referring Provider: MICHAEL FUCHS Hx of Present Illness 71-year-old female with no significant past medical history presenting with abdominal pain, found with mucosal thickening of the proximal ascending colon and [pos colon mass on CT AP ,measuring about 2 to 3 cm, highly suspicious for obstructing colon neoplasm. COLONOSCOPY REVEALED COLONIC MASS IN THE MID DESCENDING COLON, WHICH HAS BEEN BX AND TATTOOED PATH-P STAGING W-UP INCLUDED CEA= 7.[address], negative for metastatic dis i was asked to provide hemeonc consult PAST MEDICAL HISTORY: Denies. PAST SURGICAL HISTORY: Hysterectomy for unknown reasons 30 years ago in [facility]. Likely cholecystectomy. HOME MEDICATIONS: None. ALLERGIES: NO KNOWN DRUG ALLERGIES. FAMILY HISTORY: Denies. SOCIAL HISTORY: History of alcohol, tobacco and drug abuse in the past when she was young Denies any use of them at this time. REVIEW OF SYSTEMS: A 12-point review of systems is negative except for that discussed in HPI. Psychological: nl mood/affect, no complaints Social History Smoking Status: Never smoker Exam/Review of Systems Vital Signs Vitals Vital Signs Date Time Temp Pulse Resp B/P Pulse Ox O2 Delivery O2 Flow Rate FiO2 04/25/16 07:32 98.8 80 20 112/58 96 04/24/16 17:00 Room Air Intake and Output 04/24/16 04/24/16 04/25/16 15:00 23:00 07:00 Intake Total 150 ml 100 ml Balance 150 ml 100 ml Exam PHYSICAL EXAMINATION: GENERAL: No acute distress, alert and oriented. American-speaking. HEENT: Normocephalic, atraumatic. LUNGS: Clear to auscultation. CARDIOVASCULAR: Regular rate and rhythm. ABDOMEN: Nondistended, nontender, soft. EXTREMITIES: No clubbing, cyanosis, or edema. Results Result Diagram: 04/25/16 0836 04/25/16 0836 Results 24 hrs Laboratory Tests Test 04/25/16 08:36 Anion Gap 18 H Basophils # 0.0 Basophils % 0.3 Blood Morphology Comment Blood Urea Nitrogen 13 Calcium Level 8.6 Carbon Dioxide Level 22 Chloride Level 106 Creatinine 0.71 Eosinophils # 0.3 Eosinophils % 6.5 Glucose Level 158 Hematocrit 35.0 L Hemoglobin 11.7 L Lymphocytes # 1.7 Lymphocytes % 31.8 Mean Corpuscular Hemoglobin 28.8 L Mean Corpuscular Hemoglobin Concent 33.4 Mean Corpuscular Volume 86.1 Mean Platelet Volume 7.5 Monocytes # 0.3 Monocytes % 6.3 Neutrophils # 2.9 Neutrophils % 55.1 Nucleated Red Blood Cells # 0.0 Nucleated Red Blood Cells % 0.0 Platelet Count 237 Potassium Level 3.3 L Red Blood Count 4.07 L Red Cell Distribution Width 14.5 Sodium Level 143 White Blood Count 5.2 Medications Medications Current Medications Ondansetron HCl (Zofran Inj) 4 mg Q6H PRN IV NAUSEA AND/OR VOMITING; Start 04/22 at 19:00 Acetaminophen (Tylenol Tab) 650 mg Q6H PRN PO PAIN LEVEL 1-3 OR FEVER; Start at 19:00 Acetaminophen/ Hydrocodone Bitart ([place] (5/325)) 1 tab Q6H PRN PO MODERATE PAIN LEVEL 4-6 Last administered on 04/23/16t 22:35; Admin Dose 1 TAB; Start 04/22 at 19:00 Morphine Sulfate (morphine) 2 mg Q4H PRN IV SEVERE PAIN LEVEL 7-10; Start at 19:00 Docusate Sodium (Colace) 100 mg Q12H PRN PO CONSTIPATION; Start 04/22/16 at 19: 00 Magnesium Hydroxide (Milk Of Mag) 30 ml DAILY PRN PO CONSTIPATION; Start at 19:00 Sodium Biphosphate/ Sodium Phosphate (Fleet Enema) [address] CONSTIPATION; Start 04/22/16 at 19:00 Heparin Sodium (Porcine) (Heparin (5000 Units/0.5 ml)) 5,000 unit Q12 SC Last administered on 04/25/16 08:11; Admin Dose 5,000 UNIT; Start 04/22/16 at 21:00 Lorazepam (Ativan) 0.5 mg Q6H PRN IV ANXIETY; Start 04/22/16 at 19:00 Nitroglycerin (Nitroglycerin (Sl Tab) 0.4 Mg) 1 tab Q5M PRN SL ANGINA; Start at 19:00 Pantoprazole (Protonix Iv) 40 mg DAILY@06 IV Last administered on 04/25/16 06: 25; Admin Dose 40 MG; Start 04/23/16 at 06:00 Fenofibrate (Tricor) 48 mg DAILY PO Last administered on 04/25/16 08:09; Admin Dose 48 MG; Start 04/24/16 at 09:00 Procedures Procedures [place] [id number] Radiology Main Line: [phone] DIAGNOSTIC IMAGING REPORT Patient: CIARA GLEASON : 1945 Age: 71 Sex: F [id number]: 04/[facility]16 [facility] Ordering MD: KYLIE LR MD Location: E/R Room/Bed: PROCEDURE: CT Abdomen and Pelvis without contrast. CLINICAL INDICATION: Right lower quadrant abdominal pain. TECHNIQUE: Multiple contiguous axial CT images of the abdomen and pelvis were obtained without the administration of intravenous contrast. Coronal and sagittal reconstructions were also performed. CTDIvol (mGy): 10.73; Total Exam DLP (mGy-cm): 549.13. One or more of the following dose reduction techniques were utilized: - Automated exposure control. - Adjustment of the mA and/or kV according to patient size. - Use of iterative reconstruction technique. COMPARISON: None. FINDINGS: Limited imaging of the lower thorax is unremarkable. The liver and spleen are homogeneous in density. The liver is diffusely low in attenuation compatible with fatty infiltration. The gallbladder is not visualized. Cholecystectomy clips are not seen within the gallbladder fossa. The pancreas and adrenal glands are unremarkable. The kidneys are symmetric in size. There are no nephroureteral stones. There is no hydronephrosis or abnormal perinephric inflammation. The abdominal aorta is normal in caliber. Atherosclerotic calcification is present. There is no periaortic / retroperitoneal lymphadenopathy. The stomach is collapsed. Mild dilatation of the ileum with intraluminal fecal material is present. There is a substantial amount of formed stool within the cecum with abrupt narrowing of the proximal mid ascending colon. There is also pericolonic infiltration surrounding the cecum proximal mid ascending colon with scattered few tiny mesocolic lymph nodes. The appendix is normal. The bladder is collapsed. The uterus is absent. The adnexa are unremarkable. There is no free pelvic fluid. There is no pelvic sidewall or inguinal lymphadenopathy. Lumbosacral degenerative disk disease is observed. Body wall soft tissues are unremarkable. IMPRESSION: Large amount of formed stool within the cecum with associated dilatation of the ileal small bowel with intraluminal fecal material. There is abrupt narrowing of the proximal midportion of the ascending colon with infiltration of the immediate surrounding mesocolic fat. Tiny mesocolic lymph nodes are also present. An obstructing colonic lesion of the proximal midportion of the ascending colon is concerning. Further characterization may be obtained with CT abdomen/pelvis with intravenous contrast. Fatty infiltration of the liver. RPTAT: HLST .Kimmy Salas MD, Date Time Electronically viewed and signed by .Kimmy Salas MD, on 04/22/2016 15:56 .T/ CC: KYLIE LR MD [place] [address] Radiology Main Line: [phone] DIAGNOSTIC IMAGING REPORT Patient: CIARA GLEASON : 1945 Age: 71 Sex: F MR #: [id number] DOS: 04/22/16 1616 Ordering MD: KYLIE LR MD Location: E/R Room/Bed: PROCEDURE: CT Abdomen and Pelvis with contrast. CLINICAL INDICATION: Abdominal pain TECHNIQUE: CT scan of the abdomen and pelvis with contrast was performed on a multidetector high-resolution CT scanner. Coronal and sagittal reformatted images were obtained from the axial source images. Images were reviewed on a high-resolution PACS workstation. 80 cc of Isovue 300 iodinated contrast was administered intravenously without reported complication. The total exam CTDI equals 12 mGy and the total exam DLP equals 612 mGy-cm. COMPARISON: Abdominal CT today FINDINGS: The lung bases are clear. No focal hepatic mass is identified. There is intrahepatic and extrahepatic biliary dilatation. The gallbladder is absent. The pancreas, spleen and adrenals are unremarkable. No hydronephrosis. No obstructing renal stone. As seen on the CT earlier in the day. There is circumferential mucosal thickening of the proximal ascending colon measuring a length of 3.5 cm with associated pericolonic inflammatory stranding. There is resulting bowel obstruction with formed stool seen within the cecum. A few small regional prominent lymph nodes are seen. There is also marked dilatation of the terminal ileum. The appendix is also mildly dilated. No bulky retroperitoneal lymphadenopathy or evidence of pneumoperitoneum. Aortoiliac atherosclerosis. Degenerative changes of the spine. IMPRESSION: As seen on the CT earlier today, there is circumferential mucosal thickening of the proximal ascending colon measuring a length of 3.5 cm highly suspicious for an obstructing colonic neoplasm. There is resulting marked dilatation and formed stool seen in the cecum and terminal ileum. Recommend follow-up with colonoscopy and tissue sampling. There is pericolonic inflammatory changes and a superimposed enteritis is possible. The gallbladder is absent which may be related to prior cholecystectomy. There is intra and extrahepatic biliary dilatation which may be physiologic after cholecystectomy. Consider correlation with bilirubin values. RPTAT: AA .Fito Jacobs MD, MD Date Time Electronically viewed and signed by .Fito Jacobs MD, MD on 04/22/2016 18:03 .T/ CC: KYLIE LR MD KLEYNBERG, VERA M MD Apr 25, 2016 18:00
[2016-04-25] MEDS ORDERED: POTASSIUM CHLORIDE (SR) 20 MEQ TAB PO STA (18:59)
[2016-04-25] MEDS: HYDROCODONE/APAP (5/325) TAB PO PRN (19:31)
[2016-04-25 19:53] VITALS: BP 121/59; RESP 19
[2016-04-26 06:38] LABS: BASOPHILS % 0.4 % (0.0-2.0); EOSINOPHILS # 0.3 10^3/ul (0.0-0.5); EOSINOPHILS % 6.9 % (0.0-7.0); HEMATOCRIT 33.2 % (37.0-47.0); HEMOGLOBIN 11.1 g/dl (12.0-16.0); LYMPHOCYTES # 2.6 10^3/ul (0.8-2.9); LYMPHOCYTES % 56.9 % (15.0-51.0); MEAN CORPUSCULAR HEMOGLOBIN 29.2 pg (29.0-33.0); MEAN CORPUSCULAR HGB CONC 33.4 g/dl (32.0-37.0); MEAN CORPUSCULAR VOLUME 87.4 fl (82.0-101.0); MEAN PLATELET VOLUME 7.5 fl (7.4-10.4); MONOCYTE # 0.4 10^3/ul (0.3-0.9); MONOCYTES % 9.5 % (0.0-11.0); NEUTROPHIL # 1.2 10^3/ul (1.6-7.5); NEUTROPHILS % 26.3 % (39.0-77.0); PLATELET COUNT 227 10^3/UL (140-440); UNCORRECTED WBC 4.7 10^3/ul (4.8-10.8); WHITE BLOOD COUNT 4.7 10^3/ul (4.8-10.8)
[2016-04-26] MEDS: PANTOPRAZOLE 40 MG INJ IV SCH (06:41)
[2016-04-26 06:47] LABS: CONDITION 1; LH ANALYZER COMMENTS 1
[2016-04-26 07:19] LABS: IRON 39 ug/dl (35-150)
[2016-04-26 07:28] LABS: TOTAL IRON BINDING CAPACITY 386 ug/dl (241-421)
[2016-04-26 07:35] LABS: POTASSIUM 4.1 mmol/L (3.5-5.1)
[2016-04-26 07:37] LABS: CREATININE 0.71 mg/dl (0.44-1.00)
[2016-04-26 07:38] LABS: CALCIUM 8.6 mg/dl (8.4-10.2)
[2016-04-26 08:00] VITALS: BP 115/57; PULSE 56; RESP 18
[2016-04-26] MEDS: FENOFIBRATE 48 MG TAB PO SCH (08:21)
[2016-04-26] MEDS: HEPARIN 5,000 UNIT/0.5 ML SYG SC SCH ×2 (08:22→20:49)
--- NOTE | 2016-04-26 09:48 | CONS ---
Date/Time of Note Date/Time of Note DATE: 04/26/16 TIME: 09:45 Assessment/Plan Assessment/Plan Additional Assessment/Plan Abdominal pain/nausea/vomiting, improving Normocytic anemia * Monitor H&H every 6 hours, transfuse 2 units for hemoglobin less than 7.5 * PPI therapy Rectal mass * Colonoscopy * Large partially obstructing mass mid descending colon, biopsied and tattooed * Moderate sized internal hemorrhoids * Follow-up on pathology * Oncology following * Recommend surgery consult Obesity Further recommendations depend on clinical course Patient seen in collaboration with Dr. Maxwell Consultation Date/Type/Reason Admit Date/Time Apr 24, 2016 at 10:36 Type of Consultation: GI Referring Provider: MICHAEL FUCHS 24 HR Interval Summary Free Text/Dictation Patient denies abdominal pain, nausea, vomiting Pathology in process Exam/Review of Systems Vital Signs Vitals Vital Signs Date Time Temp Pulse Resp B/P Pulse Ox O2 Delivery O2 Flow Rate FiO2 04/26/16 08:00 97.8 56 18 115/57 97 Room Air Intake and Output 04/25/16 04/25/16 04/26/16 15:00 23:00 07:00 Intake Total 960 ml 300 ml Balance 960 ml 300 ml Exam Constitutional: alert, obese, oriented, well developed Psych: nl mood/affect, no complaints ENMT: nl external ears & nose, nl lips & teeth, nl nasal mucosa & septum Respiratory: clear to auscultation Cardiovascular: regular rate and rhythm Gastrointestinal: soft, tender (Lower abdomen) Neurological: 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 TEACHER II-XII 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 Results Result Diagram: 04/26/16 0600 04/26/16 0600 Results 24 hrs Laboratory Tests Test 04/26/16 06:00 Anion Gap 15 Basophils # 0.0 Basophils % 0.4 Blood Urea Nitrogen 14 Calcium Level 8.6 Carbon Dioxide Level 24 Chloride Level 110 Creatinine 0.71 Eosinophils # 0.3 Eosinophils % 6.9 Ferritin 10.0 L Glucose Level 104 # Hematocrit 33.2 L Hemoglobin 11.1 L Iron Level 39 Lymphocytes # 2.6 Lymphocytes % 56.9 H Mean Corpuscular Hemoglobin 29.2 Mean Corpuscular Hemoglobin Concent 33.4 Mean Corpuscular Volume 87.4 Mean Platelet Volume 7.5 Monocytes # 0.4 Monocytes % 9.5 Neutrophils # 1.2 L Neutrophils % 26.3 L Nucleated Red Blood Cells # 0.0 Nucleated Red Blood Cells % 0.0 Percent Iron Saturation 10 L Platelet Count 227 Potassium Level 4.1 Red Blood Count 3.80 L Red Cell Distribution Width 14.0 Sodium Level 145 H Total Iron Binding Capacity 386 White Blood Count 4.7 L Medications Medications Current Medications Ondansetron HCl (Zofran Inj) 4 mg Q6H PRN IV NAUSEA AND/OR VOMITING; Start 04/22 at 19:00 Acetaminophen (Tylenol Tab) 650 mg Q6H PRN PO PAIN LEVEL 1-3 OR FEVER; Start at 19:00 Acetaminophen/ Hydrocodone Bitart ([place] (5/325)) 1 tab Q6H PRN PO MODERATE PAIN LEVEL 4-6 Last administered on 04/25/16 19:31; Admin Dose 1 TAB; Start 04/22 at 19:00 Morphine Sulfate (morphine) 2 mg Q4H PRN IV SEVERE PAIN LEVEL 7-10; Start at 19:00 Docusate Sodium (Colace) 100 mg Q12H PRN PO CONSTIPATION; Start 04/22/16 at 19: 00 Magnesium Hydroxide (Milk Of Mag) 30 ml DAILY PRN PO CONSTIPATION; Start at 19:00 Sodium Biphosphate/ Sodium Phosphate (Fleet Enema) 133 ml DAILY PRN [place] CONSTIPATION; Start 04/22/16 at 19:00 Heparin Sodium (Porcine) (Heparin (5000 Units/0.5 ml)) 5,000 unit Q12 SC Last administered on 04/26/16 08:22; Admin Dose 5,000 UNIT; Start 04/22/16 at 21:00 Lorazepam (Ativan) 0.5 mg Q6H PRN IV ANXIETY; Start 04/22/16 at 19:00 Nitroglycerin (Nitroglycerin (Sl Tab) 0.4 Mg) 1 tab Q5M PRN SL ANGINA; Start at 19:00 Pantoprazole (Protonix Iv) 40 mg DAILY@06 IV Last administered on 04/26/16 06: 41; Admin Dose 40 MG; Start 04/23/16 at 06:00 Fenofibrate (Tricor) 48 mg DAILY PO Last administered on 04/26/16 08:21; Admin Dose 48 MG; Start 04/24/16 at 09:00 MICKI VALDIVIA Apr 26, 2016 09:47
[2016-04-26] MEDS ORDERED: GUAIFENESIN 20 MG/ML 5ML CUP PO PRN (12:00)
--- NOTE | 2016-04-26 12:47 | PN ---
Date/Time of Note Date/Time of Note DATE: 04/26/16 TIME: 12:44 Assessment/Plan VTE Prophylaxis VTE Prophylaxis Intervention: heparin Lines/Catheters IV [facility]ter Type (from [facility]): Saline Lock Urinary Cath still in place: No Assessment/Plan Chief Complaint/Hosp Course ASSESSMENT AND PLAN: 71-year-old female with no significant past medical history presenting with abdominal pain found with mucosal thickening of the proximal ascending colon measuring about 2 to 3 cm, highly suspicious for obstructing colon neoplasm. 1. Abdominal pain. Again, there is finding of colon mass, now s/p colonscopy with findings of large partially obstructing mass mid descending colon, biopsied and tattooed and moderate sized internal hemorrhoids - continue med/surg floor care. - CEA is somewhat elevated, as there is a concern of possible malignancy here - f/u biopsy results (pending). - appreciate GI consult, appreciate Heme/Onc consult, awaiting Gen surgery consult. - Continue pain control with morphine and [place] p.r.n. as well. - Antiemetic control with Zofran p.r.n. 2. Normocytic anemia. No signs of any bleeding. Hemoglobin and hematocrit are stable. Monitor for now. 3. Gastrointestinal prophylaxis, proton pump inhibitor. 4. Deep venous thrombosis prophylaxis, heparin subcutaneously. Problems: Subjective 24 Hr Interval Summary Free Text/Dictation No acute events overnight, seen by Heme/Onc and GI teams yesterday. Awaiting pathology results and surgery eval. Exam/Review of Systems Vital Signs Vitals Vital Signs Date Time Temp Pulse Resp B/P Pulse Ox O2 Delivery O2 Flow Rate FiO2 04/26/16 08:00 97.8 56 18 115/57 97 Room Air Intake and Output 04/25/16 04/25/16 04/26/16 15:00 23:00 07:00 Intake Total 960 ml 300 ml Balance 960 ml 300 ml Exam GENERAL: The patient lying in bed, answering questions, in no acute distress. HEENT: Pupils equal, round, reactive to light. Extraocular muscles intact. NECK: Supple, no thyromegaly. LUNGS: Clear to auscultation bilaterally. CARDIOVASCULAR: S1, S2 heard. No rubs or gallops. ABDOMEN: Soft, nontender, nondistended. Normal bowel sounds. No rebound or guarding. MUSCULOSKELETAL: No lower extremity edema bilaterally. NEUROLOGIC: No focal deficits. Results Result Diagram: 04/26/16 0600 04/26/16 0600 Results 24 hrs Laboratory Tests Test 04/26/16 06:00 Anion Gap 15 Basophils # 0.0 Basophils % 0.4 Blood Urea Nitrogen 14 Calcium Level 8.6 Carbon Dioxide Level 24 Chloride Level 110 Creatinine 0.71 Eosinophils # 0.3 Eosinophils % 6.9 Ferritin 10.0 L Glucose Level 104 # Hematocrit 33.2 L Hemoglobin 11.1 L Iron Level 39 Lymphocytes # 2.6 Lymphocytes % 56.9 H Mean Corpuscular Hemoglobin 29.2 Mean Corpuscular Hemoglobin Concent 33.4 Mean Corpuscular Volume 87.4 Mean Platelet Volume 7.5 Monocytes # 0.4 Monocytes % 9.5 Neutrophils # 1.2 L Neutrophils % 26.3 L Nucleated Red Blood Cells # 0.0 Nucleated Red Blood Cells % 0.0 Percent Iron Saturation 10 L Platelet Count 227 Potassium Level 4.1 Red Blood Count 3.80 L Red Cell Distribution Width 14.0 Sodium Level 145 H Total Iron Binding Capacity 386 White Blood Count 4.7 L Medications Medications Current Medications Ondansetron HCl (Zofran Inj) 4 mg Q6H PRN IV NAUSEA AND/OR VOMITING; Start 04/22 at 19:00 Acetaminophen (Tylenol Tab) 650 mg Q6H PRN PO PAIN LEVEL 1-3 OR FEVER; Start at 19:00 Acetaminophen/ Hydrocodone Bitart ([place] (5/325)) 1 tab Q6H PRN PO MODERATE PAIN LEVEL 4-6 Last administered on 04/25/16 19:31; Admin Dose 1 TAB; Start 04/22 at 19:00 Morphine Sulfate (morphine) 2 mg Q4H PRN IV SEVERE PAIN LEVEL 7-10; Start at 19:00 Docusate Sodium (Colace) 100 mg Q12H PRN PO CONSTIPATION; Start 04/22/16 at 19: 00 Magnesium Hydroxide (Milk Of Mag) 30 ml DAILY PRN PO CONSTIPATION; Start at 19:00 Sodium Biphosphate/ Sodium Phosphate (Fleet Enema) 133 ml DAILY PRN [place] CONSTIPATION; Start 04/22/16 at 19:00 Heparin Sodium (Porcine) (Heparin (5000 Units/0.5 ml)) 5,000 unit Q12 SC Last administered on 04/26/16 08:22; Admin Dose 5,000 UNIT; Start 04/22/16 at 21:00 Lorazepam (Ativan) 0.5 mg Q6H PRN IV ANXIETY; Start 04/22/16 at 19:00 Nitroglycerin (Nitroglycerin (Sl Tab) 0.4 Mg) 1 tab Q5M PRN SL ANGINA; Start at 19:00 Pantoprazole (Protonix Iv) 40 mg DAILY@06 IV Last administered on 04/26/16 06: 41; Admin Dose 40 MG; Start 04/23/16 at 06:00 Fenofibrate (Tricor) 48 mg DAILY PO Last administered on 04/26/16 08:21; Admin Dose 48 MG; Start 04/24/16 at 09:00 Guaifenesin (Robitussin Liquid Cup) 200 mg Q4H PRN PO COUGH; Start 04/26/16 at 12:00 MICHAEL FUCHS Apr 26, 2016 12:47
--- NOTE | 2016-04-26 13:10 | CONS ---
Date/Time of Note Date/Time of Note DATE: 04/26/16 TIME: 13:10 Assessment/Plan Assessment/Plan Chief Complaint/Hosp Course Abdominal pain /nausea/vomiting,associated with colonic mass in the mid descending colon * post Colonoscopy * Large partially obstructing mass mid descending colon, biopsied and tattooed * Moderate sized internal hemorrhoids * pathology- P * CEA- MIN ELEVATED AT 7.5 * CT AP- NO METASTATIC DIS * Recommend surgery consult Normocytic anemia WITH N RDW * Monitor H&H every 6 hours, transfuse 2 units for hemoglobin less than 7.5 * PPI therapy * CHECK IRON STUDIES AND FERRITIN HYPOKALEMIA REPLACE MONITOR INCREASED TOTAL PROTEIN RECHECK MONITOR Obesity Problems: Consultation Date/Type/Reason Admit Date/Time Apr 24, 2016 at 10:36 Initial Consult Date 04/25/16 Type of Consultation: HEMEON Referring Provider: MICHAEL FUCHS 24 HR Interval Summary Free Text/Dictation No acute events overnight, seen by GI teams yesterday. Awaiting pathology results and surgery eval. Exam/Review of Systems Vital Signs Vitals Vital Signs Date Time Temp Pulse Resp B/P Pulse Ox O2 Delivery O2 Flow Rate FiO2 04/26/16 08:00 97.8 56 18 115/57 97 Room Air Intake and Output 04/25/16 04/25/16 04/26/16 15:00 23:00 07:00 Intake Total 960 ml 300 ml Balance 960 ml 300 ml Exam GENERAL: The patient lying in bed, answering questions, in no acute distress. HEENT: Pupils equal, round, reactive to light. Extraocular muscles intact. NECK: Supple, no thyromegaly. LUNGS: Clear to auscultation bilaterally. CARDIOVASCULAR: S1, S2 heard. No rubs or gallops. ABDOMEN: Soft, nontender, nondistended. Normal bowel sounds. No rebound or guarding. MUSCULOSKELETAL: No lower extremity edema bilaterally. NEUROLOGIC: No focal deficits. Results Result Diagram: 04/26/16 0600 04/26/16 0600 Results 24 hrs Laboratory Tests Test 04/26/16 06:00 Anion Gap 15 Basophils # 0.0 Basophils % 0.4 Blood Urea Nitrogen 14 Calcium Level 8.6 Carbon Dioxide Level 24 Chloride Level 110 Creatinine 0.71 Eosinophils # 0.3 Eosinophils % 6.9 Ferritin 10.0 L Glucose Level 104 # Hematocrit 33.2 L Hemoglobin 11.1 L Iron Level 39 Lymphocytes # 2.6 Lymphocytes % 56.9 H Mean Corpuscular Hemoglobin 29.2 Mean Corpuscular Hemoglobin Concent 33.4 Mean Corpuscular Volume 87.4 Mean Platelet Volume 7.5 Monocytes # 0.4 Monocytes % 9.5 Neutrophils # 1.2 L Neutrophils % 26.3 L Nucleated Red Blood Cells # 0.0 Nucleated Red Blood Cells % 0.0 Percent Iron Saturation 10 L Platelet Count 227 Potassium Level 4.1 Red Blood Count 3.80 L Red Cell Distribution Width 14.0 Sodium Level 145 H Total Iron Binding Capacity 386 White Blood Count 4.7 L Medications Medications Current Medications Ondansetron HCl (Zofran Inj) 4 mg Q6H PRN IV NAUSEA AND/OR VOMITING; Start 04/22 at 19:00 Acetaminophen (Tylenol Tab) 650 mg Q6H PRN PO PAIN LEVEL 1-3 OR FEVER; Start at 19:00 Acetaminophen/ Hydrocodone Bitart ([place] (5/325)) 1 tab Q6H PRN PO MODERATE PAIN LEVEL 4-6 Last administered on 04/25/16 19:31; Admin Dose 1 TAB; Start 04/22 at 19:00 Morphine Sulfate (morphine) 2 mg Q4H PRN IV SEVERE PAIN LEVEL 7-10; Start at 19:00 Docusate Sodium (Colace) 100 mg Q12H PRN PO CONSTIPATION; Start 04/22/16 at 19: 00 Magnesium Hydroxide (Milk Of Mag) 30 ml DAILY PRN PO CONSTIPATION; Start at 19:00 Sodium Biphosphate/ Sodium Phosphate (Fleet Enema) 133 ml DAILY PRN [place] CONSTIPATION; Start 04/22/16 at 19:00 Heparin Sodium (Porcine) (Heparin (5000 Units/0.5 ml)) 5,000 unit Q12 SC Last administered on 04/26/16 08:22; Admin Dose 5,000 UNIT; Start 04/22/16 at 21:00 Lorazepam (Ativan) 0.5 mg Q6H PRN IV ANXIETY; Start 04/22/16 at 19:00 Nitroglycerin (Nitroglycerin (Sl Tab) 0.4 Mg) 1 tab Q5M PRN SL ANGINA; Start at 19:00 Pantoprazole (Protonix Iv) 40 mg DAILY@06 IV Last administered on 04/26/16 06: 41; Admin Dose 40 MG; Start 04/23/16 at 06:00 Fenofibrate (Tricor) 48 mg DAILY PO Last administered on 04/26/16 08:21; Admin Dose 48 MG; Start 04/24/16 at 09:00 Guaifenesin (Robitussin Liquid Cup) 200 mg Q4H PRN PO COUGH Last administered on 04/26/16 12:44; Admin Dose 200 MG; Start 04/26/16 at 12:00 JOSETTE GEE MD Apr 26, 2016 13:10
[2016-04-26] MEDS: HYDROCODONE/APAP (5/325) TAB PO PRN (20:48)
--- NOTE | 2016-04-26 23:37 | PN ---
Date/Time of Note Date/Time of Note DATE: 04/26/16 TIME: 23:37 Assessment/Plan Lines/Catheters IV C[facility]ter Type (from [facility]): Saline Lock [place] in Place (from [facility]): No Assessment/Plan Chief Complaint/Hosp Course 1. 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 CT noted. -await path. -will plan lap right colectomy -onc f/u 2. Anemia, probably 2nd above. Stable -tx prn 3. BMI 27 -encourage diet optimization -encourage exercise optimization 4. Hypokalemia, corrected 5. Hypernatremia -correct with judicious fluid management Thank you, Problems: Subjective 24 Hr Interval Summary No f/c. No n/v. No abdominal pain. No cp/sob. No cough. No sz. No rash. No bullard/dizzy/visual or neuro changes. No dysuria. Patient agreeable to surgery during this hospitalization. Exam/Review of Systems Vital Signs Vitals Vital Signs Date Time Temp Pulse Resp B/P Pulse Ox O2 Delivery O2 Flow Rate FiO2 04/29/16 06:37 98.0 64 18 136/67 99 04/26/16 08:00 Room Air Intake and Output 04/28/16 04/28/16 04/29/16 15:00 23:00 07:00 Intake Total 1280 ml 350 ml Balance 1280 ml 350 ml Exam Constitutional: alert, obese (BMI 27), oriented, No distress Psych: nl mood/affect, No anxiety, No confusion Eyes: EOMI, PERRL, nl conjunctiva, nl sclera ENMT: mucosa pink and moist, nl external ears & nose, nl lips & teeth Neck: non-tender, supple, No jvd Respiratory: normal air movement, No congested cough, No diminished breath sounds, No labored breathing Cardiovascular: regular rate and rhythm, No edema Gastrointestinal: non-tender, soft, No distended, No firm, No rebound or guarding Musculoskeletal: nl extremities to inspection, nl gait and stance, No joint tenderness Extremities: normal pulses, No calf tenderness, No edema Neurological: nl mental status, nl speech, nl strength, No confused Skin: nl turgor, No diaphoresis, No rash or lesions Lymph: nl lymph nodes, nontender Results Result Diagram: 04/28/16 1019 04/28/16 1019 NORA BLEVINS MD Apr 26, 2016 23:37
[2016-04-27] MEDS: PANTOPRAZOLE 40 MG INJ IV SCH (06:07)
[2016-04-27 07:56] VITALS: BP 112/56; RESP 16
[2016-04-27 08:22] LABS: BASOPHILS % 0.5 % (0.0-2.0); EOSINOPHILS # 0.3 10^3/ul (0.0-0.5); EOSINOPHILS % 7.8 % (0.0-7.0); HEMOGLOBIN 11.1 g/dl (12.0-16.0); LYMPHOCYTES # 2.1 10^3/ul (0.8-2.9); LYMPHOCYTES % 53.7 % (15.0-51.0); MEAN CORPUSCULAR HEMOGLOBIN 28.9 pg (29.0-33.0); MEAN CORPUSCULAR HGB CONC 33.6 g/dl (32.0-37.0); MEAN CORPUSCULAR VOLUME 86.1 fl (82.0-101.0); MEAN PLATELET VOLUME 7.5 fl (7.4-10.4); MONOCYTE # 0.3 10^3/ul (0.3-0.9); MONOCYTES % 8.3 % (0.0-11.0); NEUTROPHIL # 1.2 10^3/ul (1.6-7.5); NEUTROPHILS % 29.7 % (39.0-77.0); PLATELET COUNT 230 10^3/UL (140-440); RED BLOOD COUNT 3.83 10^6/ul (4.20-5.40); RED CELL DISTRIBUTION WIDTH 14.6 % (11.5-14.5)
[2016-04-27 08:28] LABS: CONDITION 1; LH ANALYZER COMMENTS 1
[2016-04-27 08:40] LABS: POTASSIUM 3.5 mmol/L (3.5-5.1)
[2016-04-27 08:43] LABS: CREATININE 0.64 mg/dl (0.44-1.00)
[2016-04-27 08:44] LABS: CALCIUM 8.7 mg/dl (8.4-10.2)
[2016-04-27] MEDS: FENOFIBRATE 48 MG TAB PO SCH (09:41)
[2016-04-27] MEDS: HEPARIN 5,000 UNIT/0.5 ML SYG SC SCH ×2 (09:42→21:06)
--- NOTE | 2016-04-27 10:49 | CONS ---
Date/Time of Note Date/Time of Note DATE: 04/27/16 TIME: 10:49 Assessment/Plan Assessment/Plan Chief Complaint/Hosp Course Abdominal pain /nausea/vomiting,associated with colonic mass in the mid descending colon * post Colonoscopy * Large partially obstructing mass mid descending colon, biopsied and tattooed * Moderate sized internal hemorrhoids * pathology- ADENOCA * CEA- MIN ELEVATED AT 7.5 * CT AP- NO METASTATIC DIS * Recommend surgery Normocytic anemia WITH N RDW * Monitor H&H every 6 hours, transfuse 2 units for hemoglobin less than 7.5 * PPI therapy * MARIA FERNANDA STUDIES AND FERRITIN- REVIEWED HYPOKALEMIA REPLACE MONITOR INCREASED TOTAL PROTEIN RECHECK MONITOR Obesity Problems: Consultation Date/Type/Reason Admit Date/Time Apr 24, 2016 at 10:36 Initial Consult Date 04/25/16 Type of Consultation: HEMEON Referring Provider: MICHAEL FUCHS 24 HR Interval Summary Free Text/Dictation ALL NOTED Patient seen and examined. no new complaints spoke with patient's daughter and Exam/Review of Systems Vital Signs Vitals Vital Signs Date Time Temp Pulse Resp B/P Pulse Ox O2 Delivery O2 Flow Rate FiO2 04/27/16 07:56 97.9 65 16 112/56 97 04/26/16 08:00 Room Air Intake and Output 04/26/16 04/26/16 04/27/16 15:00 23:00 07:00 Intake Total 1280 ml 950 ml Balance 1280 ml 950 ml Exam Exam Constitutional: alert, obese, oriented Psych: nl mood/affect Head: atraumatic, normocephalic Eyes: PERRL ENMT: mucosa pink and moist Neck: non-tender, supple Respiratory: clear to auscultation Cardiovascular: regular rate and rhythm, No murmurs/extra sounds Gastrointestinal: bowel sounds, non-tender, soft Extremities: No edema Neurological: nl mental status, nl speech, nl strength Results Result Diagram: 04/27/1672404/27/16 0725 Results 24 hrs Laboratory Tests Test 04/27/16 07:25 Anion Gap 18 H Basophils # 0.0 Basophils % 0.5 Blood Morphology Comment Blood Urea Nitrogen 12 Calcium Level 8.7 Carbon Dioxide Level 24 Chloride Level 106 Creatinine 0.64 Eosinophils # 0.3 Eosinophils % 7.8 H Glucose Level 95 Hematocrit 33.0 L Hemoglobin 11.1 L Lymphocytes # 2.1 Lymphocytes % 53.7 H Mean Corpuscular Hemoglobin 28.9 L Mean Corpuscular Hemoglobin Concent 33.6 Mean Corpuscular Volume 86.1 Mean Platelet Volume 7.5 Monocytes # 0.3 Monocytes % 8.3 Neutrophils # 1.2 L Neutrophils % 29.7 L Nucleated Red Blood Cells # 0.0 Nucleated Red Blood Cells % 0.0 Platelet Count 230 Potassium Level 3.5 Red Blood Count 3.83 L Red Cell Distribution Width 14.6 H Sodium Level 144 White Blood Count 4.0 L Medications Medications Current Medications Ondansetron HCl (Zofran Inj) 4 mg Q6H PRN IV NAUSEA AND/OR VOMITING; Start 04/22 at 19:00 Acetaminophen (Tylenol Tab) 650 mg Q6H PRN PO PAIN LEVEL 1-3 OR FEVER; Start at 19:00 Acetaminophen/ Hydrocodone Bitart ([place] (5/325)) 1 tab Q6H PRN PO MODERATE PAIN LEVEL 4-6 Last administered on 04/26/16 20:48; Admin Dose 1 TAB; Start 04/22 at 19:00 Morphine Sulfate (morphine) 2 mg Q4H PRN IV SEVERE PAIN LEVEL 7-10; Start at 19:00 Docusate Sodium (Colace) 100 mg Q12H PRN PO CONSTIPATION; Start 04/22/16 at 19: 00 Magnesium Hydroxide (Milk Of Mag) 30 ml DAILY PRN PO CONSTIPATION; Start at 19:00 Sodium Biphosphate/ Sodium Phosphate (Fleet Enema) 133 ml DAILY PRN [place] CONSTIPATION; Start 04/22/16 at 19:00 Heparin Sodium (Porcine) (Heparin (5000 Units/0.5 ml)) 5,000 unit Q12 SC Last administered on 04/27/16 09:42; Admin Dose 5,000 UNIT; Start 04/22/16 at 21:00 Lorazepam (Ativan) 0.5 mg Q6H PRN IV ANXIETY; Start 04/22/16 at 19:00 Nitroglycerin (Nitroglycerin (Sl Tab) 0.4 Mg) 1 tab Q5M PRN SL ANGINA; Start at 19:00 Pantoprazole (Protonix Iv) 40 mg DAILY@06 IV Last administered on 04/27/16 06: 07; Admin Dose 40 MG; Start 04/23/16 at 06:00 Fenofibrate (Tricor) 48 mg DAILY PO Last administered on 04/27/16 09:41; Admin Dose 48 MG; Start 04/24/16 at 09:00 Guaifenesin (Robitussin Liquid Cup) 200 mg Q4H PRN PO COUGH Last administered on 04/26/16 12:44; Admin Dose 200 MG; Start 04/26/16 at 12:00 JOSETTE GEE MD Apr 27, 2016 10:49
--- NOTE | 2016-04-27 12:29 | CONS ---
Date/Time of Note Date/Time of Note DATE: 04/27/16 TIME: 12:21 Assessment/Plan Assessment/Plan Additional Assessment/Plan Abdominal pain/nausea/vomiting, improving Normocytic anemia * Monitor H&H every 6 hours, transfuse 2 units for hemoglobin less than 7.5 * PPI therapy Rectal mass * Colonoscopy * Large partially obstructing mass mid descending colon, biopsied and tattooed * Biopsy result: Adenocarcinoma, moderately differentiated, with extensive surface ulceration * Moderate sized internal hemorrhoids * Follow-up on pathology * Oncology following * Surgery following Obesity Further recommendations depend on clinical course GI sign off. Available prn Patient seen in collaboration with Dr. Maxwell Consultation Date/Type/Reason Admit Date/Time Apr 24, 2016 at 10:36 Type of Consultation: Gastroenterology Referring Provider: MICHAEL FUCHS 24 HR Interval Summary Free Text/Dictation [place] diet Surgery and Onc following GI sign off Exam/Review of Systems Vital Signs Vitals Vital Signs Date Time Temp Pulse Resp B/P Pulse Ox O2 Delivery O2 Flow Rate FiO2 04/27/16 07:56 97.9 65 16 112/56 97 04/26/16 08:00 Room Air Intake and Output 04/26/16 04/26/16 04/27/16 15:00 23:00 07:00 Intake Total 1280 ml 950 ml Balance 1280 ml 950 ml Exam Constitutional: alert, obese, oriented, well developed Psych: nl mood/affect, no complaints ENMT: nl external ears & nose, nl lips & teeth, nl nasal mucosa & septum Respiratory: clear to auscultation Cardiovascular: regular rate and rhythm Gastrointestinal: soft, tender (Lower abdomen) Neurological: GRINDER HARDBOARD II-XII intact Results Result Diagram: 04/27/16 0725 04/27/16 0725 Results 24 hrs Laboratory Tests Test 04/27/16 07:25 Anion Gap 18 H Basophils # 0.0 Basophils % 0.5 Blood Morphology Comment Blood Urea Nitrogen 12 Calcium Level 8.7 Carbon Dioxide Level 24 Chloride Level 106 Creatinine 0.64 Eosinophils # 0.3 Eosinophils % 7.8 H Glucose Level 95 Hematocrit 33.0 L Hemoglobin 11.1 L Lymphocytes # 2.1 Lymphocytes % 53.7 H Mean Corpuscular Hemoglobin 28.9 L Mean Corpuscular Hemoglobin Concent 33.6 Mean Corpuscular Volume 86.1 Mean Platelet Volume 7.5 Monocytes # 0.3 Monocytes % 8.3 Neutrophils # 1.2 L Neutrophils % 29.7 L Nucleated Red Blood Cells # 0.0 Nucleated Red Blood Cells % 0.0 Platelet Count 230 Potassium Level 3.5 Red Blood Count 3.83 L Red Cell Distribution Width 14.6 H Sodium Level 144 White Blood Count 4.0 L Medications Medications Current Medications Ondansetron HCl (Zofran Inj) 4 mg Q6H PRN IV NAUSEA AND/OR VOMITING; Start 04/22 at 19:00 Acetaminophen (Tylenol Tab) 650 mg Q6H PRN PO PAIN LEVEL 1-3 OR FEVER; Start at 19:00 Acetaminophen/ Hydrocodone Bitart ([place] (5/325)) 1 tab Q6H PRN PO MODERATE PAIN LEVEL 4-6 Last administered on 04/26/16 20:48; Admin Dose 1 TAB; Start 04/22 at 19:00 Morphine Sulfate (morphine) 2 mg Q4H PRN IV SEVERE PAIN LEVEL 7-10; Start at 19:00 Docusate Sodium (Colace) 100 mg Q12H PRN PO CONSTIPATION; Start 04/22/16 at 19: 00 Magnesium Hydroxide (Milk Of Mag) 30 ml DAILY PRN PO CONSTIPATION; Start at 19:00 Sodium Biphosphate/ Sodium Phosphate (Fleet Enema) 133 ml DAILY PRN [place] CONSTIPATION; Start 04/22/16 at 19:00 Heparin Sodium (Porcine) (Heparin (5000 Units/0.5 ml)) 5,000 unit Q12 SC Last administered on 04/27/16 09:42; Admin Dose 5,000 UNIT; Start 04/22/16 at 21:00 Lorazepam (Ativan) 0.5 mg Q6H PRN IV ANXIETY; Start 04/22/16 at 19:00 Nitroglycerin (Nitroglycerin (Sl Tab) 0.4 Mg) 1 tab Q5M PRN SL ANGINA; Start at 19:00 Pantoprazole (Protonix Iv) 40 mg DAILY@06 IV Last administered on 04/27/16 06: 07; Admin Dose 40 MG; Start 04/23/16 at 06:00 Fenofibrate (Tricor) 48 mg DAILY PO Last administered on 04/27/16 09:41; Admin Dose 48 MG; Start 04/24/16 at 09:00 Guaifenesin (Robitussin Liquid Cup) 200 mg Q4H PRN PO COUGH Last administered on 04/26/16 12:44; Admin Dose 200 MG; Start 04/26/16 at 12:00 MICKI VALDIVIA Apr 27, 2016 12:29
--- NOTE | 2016-04-27 19:27 | PN ---
Date/Time of Note Date/Time of Note DATE: 04/27/16 TIME: 19:24 Assessment/Plan VTE Prophylaxis VTE Prophylaxis Intervention: SCD's VTE Contraindication Reason: bleeding Lines/Catheters IV Catheter Type (from Nrs): Saline Lock Urinary Cath still in place: No Assessment/Plan Assessment/Plan ASSESSMENT AND PLAN: 71-year-old female with no significant past medical history presenting with abdominal pain found with mucosal thickening of the proximal ascending colon measuring about 2 to 3 cm, highly suspicious for obstructing colon neoplasm. 1. Abdominal pain with findings of colonic mass and adenocarcinoma on biopsy heme onc recommends gen surg review / surgical consultation pending / probable surgery tomorrow 2. Normocytic anemia. No signs of any bleeding. Hemoglobin and hematocrit are stable. Monitor for now. 3. Gastrointestinal prophylaxis, proton pump inhibitor. 4. Deep venous thrombosis prophylaxis, heparin subcutaneously. Subjective 24 Hr Interval Summary Free Text/Dictation Patient seen and examined. no new complaints spoke with patient's daughter and Exam/Review of Systems Vital Signs Vitals Vital Signs Date Time Temp Pulse Resp B/P Pulse Ox O2 Delivery O2 Flow Rate FiO2 04/27/16 07:56 97.9 65 16 112/56 97 04/26/16 08:00 Room Air Intake and Output 04/26/16 04/26/16 04/27/16 15:00 23:00 07:00 Intake Total 1280 ml 950 ml Balance 1280 ml 950 ml Exam Constitutional: alert, obese, oriented Psych: nl mood/affect Head: atraumatic, normocephalic Eyes: PERRL ENMT: mucosa pink and moist Neck: non-tender, supple Respiratory: clear to auscultation Cardiovascular: regular rate and rhythm, No murmurs/extra sounds Gastrointestinal: bowel sounds, non-tender, soft Extremities: No edema Neurological: nl mental status, nl speech, nl strength Results Result Diagram: 04/27/16 0725 04/27/16 0725 Results 24 hrs Laboratory Tests Test 04/27/16 07:25 Anion Gap 18 H Basophils # 0.0 Basophils % 0.5 Blood Morphology Comment Blood Urea Nitrogen 12 Calcium Level 8.7 Carbon Dioxide Level 24 Chloride Level 106 Creatinine 0.64 Eosinophils # 0.3 Eosinophils % 7.8 H Glucose Level 95 Hematocrit 33.0 L Hemoglobin 11.1 L Lymphocytes # 2.1 Lymphocytes % 53.7 H Mean Corpuscular Hemoglobin 28.9 L Mean Corpuscular Hemoglobin Concent 33.6 Mean Corpuscular Volume 86.1 Mean Platelet Volume 7.5 Monocytes # 0.3 Monocytes % 8.3 Neutrophils # 1.2 L Neutrophils % 29.7 L Nucleated Red Blood Cells # 0.0 Nucleated Red Blood Cells % 0.0 Platelet Count 230 Potassium Level 3.5 Red Blood Count 3.83 L Red Cell Distribution Width 14.6 H Sodium Level 144 White Blood Count 4.0 L Medications Medications Current Medications Ondansetron HCl (Zofran Inj) 4 mg Q6H PRN IV NAUSEA AND/OR VOMITING; Start 04/22 at 19:00 Acetaminophen (Tylenol Tab) 650 mg Q6H PRN PO PAIN LEVEL 1-3 OR FEVER; Start at 19:00 Acetaminophen/ Hydrocodone Bitart ([place] (5/325)) 1 tab Q6H PRN PO MODERATE PAIN LEVEL 4-6 Last administered on 04/26/16 20:48; Admin Dose 1 TAB; Start 04/22 at 19:00 Morphine Sulfate (morphine) 2 mg Q4H PRN IV SEVERE PAIN LEVEL 7-10; Start at 19:00 Docusate Sodium (Colace) 100 mg Q12H PRN PO CONSTIPATION; Start 04/22/16 at 19: 00 Magnesium Hydroxide (Milk Of Mag) 30 ml DAILY PRN PO CONSTIPATION; Start at 19:00 Sodium Biphosphate/ Sodium Phosphate (Fleet Enema) 133 ml DAILY PRN [place] CONSTIPATION; Start 04/22/16 at 19:00 Heparin Sodium (Porcine) (Heparin (5000 Units/0.5 ml)) 5,000 unit Q12 SC Last administered on 04/27/16 09:42; Admin Dose 5,000 UNIT; Start 04/22/16 at 21:00 Lorazepam (Ativan) 0.5 mg Q6H PRN IV ANXIETY; Start 04/22/16 at 19:00 Nitroglycerin (Nitroglycerin (Sl Tab) 0.4 Mg) 1 tab Q5M PRN SL ANGINA; Start at 19:00 Pantoprazole (Protonix Iv) 40 mg DAILY@06 IV Last administered on 04/27/16 06: 07; Admin Dose 40 MG; Start 04/23/16 at 06:00 Fenofibrate (Tricor) 48 mg DAILY PO Last administered on 04/27/16 09:41; Admin Dose 48 MG; Start 04/24/16 at 09:00 Guaifenesin (Robitussin Liquid Cup) 200 mg Q4H PRN PO COUGH Last administered on 04/26/16 12:44; Admin Dose 200 MG; Start 04/26/16 at 12:00 Procedures Procedures PROCEDURE: CT Abdomen and Pelvis with contrast. CLINICAL INDICATION: Abdominal pain TECHNIQUE: CT scan of the abdomen and pelvis with contrast was performed on a multidetector high-resolution CT scanner. Coronal and sagittal reformatted images were obtained from the axial source images. Images were reviewed on a high-resolution PACS workstation. 80 cc of Isovue 300 iodinated contrast was administered intravenously without reported complication. The total exam CTDI equals 12 mGy and the total exam DLP equals 612 mGy-cm. COMPARISON: Abdominal CT today FINDINGS: The lung bases are clear. No focal hepatic mass is identified. There is intrahepatic and extrahepatic biliary dilatation. The gallbladder is absent. The pancreas, spleen and adrenals are unremarkable. No hydronephrosis. No obstructing renal stone. As seen on the CT earlier in the day. There is circumferential mucosal thickening of the proximal ascending colon measuring a length of 3.5 cm with associated pericolonic inflammatory stranding. There is resulting bowel obstruction with formed stool seen within the cecum. A few small regional prominent lymph nodes are seen. There is also marked dilatation of the terminal ileum. The appendix is also mildly dilated. No bulky retroperitoneal lymphadenopathy or evidence of pneumoperitoneum. Aortoiliac atherosclerosis. Degenerative changes of the spine. IMPRESSION: As seen on the CT earlier today, there is circumferential mucosal thickening of the proximal ascending colon measuring a length of 3.5 cm highly suspicious for an obstructing colonic neoplasm. There is resulting marked dilatation and formed stool seen in the cecum and terminal ileum. Recommend follow-up with colonoscopy and tissue sampling. There is pericolonic inflammatory changes and a superimposed enteritis is possible. The gallbladder is absent which may be related to prior cholecystectomy. There is intra and extrahepatic biliary dilatation which may be physiologic after cholecystectomy. Consider correlation with bilirubin values. RPTAT: AA .Fito Jacobs MD, MD Date Time Electronically viewed and signed by .Fito Jacobs MD, MD on 04/22/2016 18:03 Lab No: [id number] Date: 04/24/2016 SPECIMEN: Mid ascending colon mass biopsy CLINICAL: Abdominal pain GROSS EXAMINATION: Received in formalin fixative are six fragments of cotto-pink soft tissue that measure 0.1 x 0.1 x 0.1 cm up to 0.6 x 0.2 x 0.1 cm. Totally submitted in one cassette. MICROSCOPIC DIAGNOSIS: Mid ascending colon mass biopsy: -- Adenocarcinoma, moderately differentiated, with extensive surface ulceration. COMMENT: Findings are discussed with Dr. Antonio Maxwell on 04/27/16. ADELINA/BUSTER/luly/mary Date of Service: 04/24/16; Date Received: 04/24/16 Dictated: 04/27/16; Transcribed: 04/27/16; Sent by Fax: 04/27/16 Reviewed: TUAN Bowers M.D. Pathologist Electronically Signed 04/27/2016 ALEJANDRA BOWERS M.D. 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
[2016-04-27 20:18] VITALS: BP 123/61; RESP 18
--- NOTE | 2016-04-27 22:49 | PN ---
Date/Time of Note Date/Time of Note DATE: 04/27/16 TIME: 22:49 Assessment/Plan Lines/Catheters IV Catheter Type (from [facility]): Saline Lock Coronel in Place (from [facility]): No Assessment/Plan Chief Complaint/Hosp Course 1. 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 CT noted. -await path. -will plan lap right colectomy -onc f/u 2. Anemia, probably 2nd above. Stable -tx prn 3. BMI 27 -encourage diet optimization -encourage exercise optimization 4. Hypokalemia, corrected 5. Hypernatremia -correct with judicious fluid management Thank you, Problems: Subjective 24 Hr Interval Summary No f/c. No n/v. No abdominal pain. No cp/sob. No cough. No sz. No rash. No bullard/dizzy/visual or neuro changes. No dysuria. Exam/Review of Systems Vital Signs Vitals Vital Signs Date Time Temp Pulse Resp B/P Pulse Ox O2 Delivery O2 Flow Rate FiO2 04/29/16 06:37 98.0 64 18 136/67 99 04/26/16 08:00 Room Air Intake and Output 04/28/16 04/28/16 04/29/16 15:00 23:00 07:00 Intake Total 1280 ml 350 ml Balance 1280 ml 350 ml Exam Free Text/Dictation Constitutional: alert, obese (BMI 27), oriented, No distress Psych: nl mood/affect, No anxiety, No confusion Eyes: EOMI, PERRL, nl conjunctiva, nl sclera ENMT: mucosa pink and moist, nl external ears & nose, nl lips & teeth Neck: non-tender, supple, No jvd Respiratory: normal air movement, No congested cough, No diminished breath sounds, No labored breathing Cardiovascular: regular rate and rhythm, No edema Gastrointestinal: non-tender, soft, No distended, No firm, No rebound or guarding Musculoskeletal: nl extremities to inspection, nl gait and stance, No joint tenderness Extremities: normal pulses, No calf tenderness, No edema Neurological: nl mental status, nl speech, nl strength, No confused Skin: nl turgor, No diaphoresis, No rash or lesions Lymph: nl lymph nodes, nontender Results Result Diagram: 04/28/16 1019 04/28/16 1019 NORA BLEVINS MD Apr 27, 2016 22:49
[2016-04-28] MEDS: PANTOPRAZOLE 40 MG INJ IV SCH (05:36)
[2016-04-28 08:33] VITALS: BP 114/59; RESP 18
--- NOTE | 2016-04-28 08:57 | CONS ---
Date/Time of Note Date/Time of Note DATE: 04/28/16 TIME: 08:56 Assessment/Plan Assessment/Plan Chief Complaint/Hosp Course Abdominal pain /nausea/vomiting,associated with colonic mass in the mid descending colon * post Colonoscopy * Large partially obstructing mass mid ascending colon, biopsied and tattooed * Moderate sized internal hemorrhoids * pathology- ADENOCA * CEA- MIN ELEVATED AT 7.5 * CT AP- NO METASTATIC DIS * Recommend surgery Normocytic anemia WITH N RDW * Monitor H&H every 6 hours, transfuse 2 units for hemoglobin less than 7.5 * PPI therapy * IRON STUDIES AND FERRITIN- REVIEWED * START IV IRON HYPOKALEMIA REPLACE MONITOR INCREASED TOTAL PROTEIN RECHECK MONITOR Obesity Problems: Consultation Date/Type/Reason Admit Date/Time Apr 24, 2016 at 10:36 Initial Consult Date 04/25/16 Type of Consultation: HEMEON Referring Provider: MICHAEL FUCHS 24 HR Interval Summary Free Text/Dictation ALL NOTED D/W PT FOR SURGERY TOMORROW Exam/Review of Systems Vital Signs Vitals Vital Signs Date Time Temp Pulse Resp B/P Pulse Ox O2 Delivery O2 Flow Rate FiO2 04/28/16 08:33 97.6 53 18 114/59 97 04/26/16 08:00 Room Air Intake and Output 04/27/16 04/27/16 04/28/16 15:00 23:00 07:00 Intake Total 940 ml 550 ml Balance 940 ml 550 ml Exam Constitutional: alert, obese, oriented Psych: nl mood/affect Head: atraumatic, normocephalic Eyes: PERRL ENMT: mucosa pink and moist Neck: non-tender, supple Respiratory: clear to auscultation Cardiovascular: regular rate and rhythm, No murmurs/extra sounds Gastrointestinal: bowel sounds, non-tender, soft Extremities: No edema Neurological: nl mental status, nl speech, nl strength Results Result Diagram: 04/27/1672404/27/16724 Medications Medications Current Medications Ondansetron HCl (Zofran Inj) 4 mg Q6H PRN IV NAUSEA AND/OR VOMITING; Start 04/22 at 19:00 Acetaminophen (Tylenol Tab) 650 mg Q6H PRN PO PAIN LEVEL 1-3 OR FEVER; Start at 19:00 Acetaminophen/ Hydrocodone Bitart ([place] (5/325)) 1 tab Q6H PRN PO MODERATE PAIN LEVEL 4-6 Last administered on 04/26/16 20:48; Admin Dose 1 TAB; Start 04/22 at 19:00 Morphine Sulfate (morphine) 2 mg Q4H PRN IV SEVERE PAIN LEVEL 7-10; Start at 19:00 Docusate Sodium (Colace) 100 mg Q12H PRN PO CONSTIPATION; Start 04/22/16 at 19: 00 Magnesium Hydroxide (Milk Of Mag) 30 ml DAILY PRN PO CONSTIPATION; Start at 19:00 Sodium Biphosphate/ Sodium Phosphate (Fleet Enema) 133 ml DAILY PRN [place] CONSTIPATION; Start 04/22/16 at 19:00 Heparin Sodium (Porcine) (Heparin (5000 Units/0.5 ml)) 5,000 unit Q12 SC Last administered on 04/27/16 21:06; Admin Dose 5,000 UNIT; Start 04/22/16 at 21:00 Lorazepam (Ativan) 0.5 mg Q6H PRN IV ANXIETY; Start 04/22/16 at 19:00 Nitroglycerin (Nitroglycerin (Sl Tab) 0.4 Mg) 1 tab Q5M PRN SL ANGINA; Start at 19:00 Pantoprazole (Protonix Iv) 40 mg DAILY@06 IV Last administered on 04/28/16 05: 36; Admin Dose 40 MG; Start 04/23/16 at 06:00 Fenofibrate (Tricor) 48 mg DAILY PO Last administered on 04/27/16 09:41; Admin Dose 48 MG; Start 04/24/16 at 09:00 Guaifenesin (Robitussin Liquid Cup) 200 mg Q4H PRN PO COUGH Last administered on 04/26/16 12:44; Admin Dose 200 MG; Start 04/26/16 at 12:00 JOSETTE GEE MD Apr 28, 2016 08:56
[2016-04-28] MEDS: FENOFIBRATE 48 MG TAB PO SCH (09:04)
[2016-04-28] MEDS: HEPARIN 5,000 UNIT/0.5 ML SYG SC SCH ×2 (09:05→21:25)
[2016-04-28 11:02] LABS: BASOPHILS % 0.7 % (0.0-2.0); EOSINOPHILS # 0.4 10^3/ul (0.0-0.5); EOSINOPHILS % 9.2 % (0.0-7.0); HEMATOCRIT 33.3 % (37.0-47.0); HEMOGLOBIN 11.2 g/dl (12.0-16.0); LYMPHOCYTES # 2.2 10^3/ul (0.8-2.9); LYMPHOCYTES % 54.3 % (15.0-51.0); MEAN CORPUSCULAR HEMOGLOBIN 28.8 pg (29.0-33.0); MEAN CORPUSCULAR HGB CONC 33.6 g/dl (32.0-37.0); MEAN CORPUSCULAR VOLUME 85.8 fl (82.0-101.0); MEAN PLATELET VOLUME 8.7 fl (7.4-10.4); MONOCYTE # 0.3 10^3/ul (0.3-0.9); MONOCYTES % 7.4 % (0.0-11.0); NEUTROPHIL # 1.1 10^3/ul (1.6-7.5); NEUTROPHILS % 28.4 % (39.0-77.0); PLATELET COUNT 179 10^3/UL (140-440); RED BLOOD COUNT 3.88 10^6/ul (4.20-5.40); RED CELL DISTRIBUTION WIDTH 14.1 % (11.5-14.5)
[2016-04-28 11:11] LABS: CONDITION 1; LH ANALYZER COMMENTS 1
[2016-04-28 11:19] LABS: POTASSIUM 3.8 mmol/L (3.5-5.1)
[2016-04-28 11:21] LABS: CREATININE 0.63 mg/dl (0.44-1.00)
[2016-04-28 11:22] LABS: CALCIUM 9.2 mg/dl (8.4-10.2)
--- NOTE | 2016-04-28 13:00 | PN ---
Date/Time of Note Date/Time of Note DATE: 04/28/16 TIME: 12:57 Assessment/Plan VTE Prophylaxis VTE Prophylaxis Intervention: heparin Lines/Catheters IV C[facility]ter Type (from [facility]): Saline Lock Urinary Cath still in place: No Assessment/Plan Assessment/Plan 71-year-old female with no significant past medical history presenting with abdominal pain found with mucosal thickening of the proximal ascending colon measuring about 2 to 3 cm, highly suspicious for obstructing colon neoplasm. 1. Abdominal pain with findings of colonic mass and adenocarcinoma on biopsy heme onc recommends gen surg review / surgical consultation pending / Mass resection planned for wednesday 2. Normocytic anemia with leucopenia and lymphocytosis. No signs of any bleeding. Hemoglobin and hematocrit are stable. Monitor for now. 3. Gastrointestinal prophylaxis, proton pump inhibitor. 4. Deep venous thrombosis prophylaxis, heparin subcutaneously. Subjective 24 Hr Interval Summary Free Text/Dictation Patient seen and examined. No new complaints Exam/Review of Systems Vital Signs Vitals Vital Signs Date Time Temp Pulse Resp B/P Pulse Ox O2 Delivery O2 Flow Rate FiO2 04/28/16 08:33 97.6 53 18 114/59 97 04/26/16 08:00 Room Air Intake and Output 04/27/16 04/27/16 04/28/16 15:00 23:00 07:00 Intake Total 940 ml 550 ml Balance 940 ml 550 ml Exam Constitutional: alert, obese, oriented Psych: nl mood/affect Head: atraumatic, normocephalic Eyes: PERRL ENMT: mucosa pink and moist Neck: non-tender, supple Respiratory: clear to auscultation Cardiovascular: regular rate and rhythm, No murmurs/extra sounds Gastrointestinal: bowel sounds, non-tender, soft Extremities: No edema Neurological: nl mental status, nl speech, nl strength Results Result Diagram: 04/28/16 1019 04/28/16 1019 Results 24 hrs Laboratory Tests Test 04/28/16 10:19 Anion Gap 16 Basophils # 0.0 Basophils % 0.7 Blood Morphology Comment Blood Urea Nitrogen 10 Calcium Level 9.2 Carbon Dioxide Level 26 Chloride Level 107 Creatinine 0.63 Eosinophils # 0.4 Eosinophils % 9.2 H Glucose Level 100 Hematocrit 33.3 L Hemoglobin 11.2 L Lymphocytes # 2.2 Lymphocytes % 54.3 H Mean Corpuscular Hemoglobin 28.8 L Mean Corpuscular Hemoglobin Concent 33.6 Mean Corpuscular Volume 85.8 Mean Platelet Volume 8.7 Monocytes # 0.3 Monocytes % 7.4 Neutrophils # 1.1 L Neutrophils % 28.4 L Nucleated Red Blood Cells # 0.0 Nucleated Red Blood Cells % 0.0 Platelet Count 179 # Potassium Level 3.8 Red Blood Count 3.88 L Red Cell Distribution Width 14.1 Sodium Level 145 H White Blood Count 4.0 L Medications Medications Current Medications Ondansetron HCl (Zofran Inj) 4 mg Q6H PRN IV NAUSEA AND/OR VOMITING; Start 04/22 at 19:00 Acetaminophen (Tylenol Tab) 650 mg Q6H PRN PO PAIN LEVEL 1-3 OR FEVER; Start at 19:00 Acetaminophen/ Hydrocodone Bitart ([place] (5/325)) 1 tab Q6H PRN PO MODERATE PAIN LEVEL 4-6 Last administered on 04/26/16 20:48; Admin Dose 1 TAB; Start 04/22 at 19:00 Morphine Sulfate (morphine) 2 mg Q4H PRN IV SEVERE PAIN LEVEL 7-10; Start at 19:00 Docusate Sodium (Colace) 100 mg Q12H PRN PO CONSTIPATION; Start 04/22/16 at 19: 00 Magnesium Hydroxide (Milk Of Mag) 30 ml DAILY PRN PO CONSTIPATION; Start at 19:00 Sodium Biphosphate/ Sodium Phosphate (Fleet Enema) 133 ml DAILY PRN [place] CONSTIPATION; Start 04/22/16 at 19:00 Heparin Sodium (Porcine) (Heparin (5000 Units/0.5 ml)) 5,000 unit Q12 SC Last administered on 04/28/16 09:05; Admin Dose 5,000 UNIT; Start 04/22/16 at 21:00 Lorazepam (Ativan) 0.5 mg Q6H PRN IV ANXIETY; Start 04/22/16 at 19:00 Nitroglycerin (Nitroglycerin (Sl Tab) 0.4 Mg) 1 tab Q5M PRN SL ANGINA; Start at 19:00 Pantoprazole (Protonix Iv) 40 mg DAILY@06 IV Last administered on 04/28/16 05: 36; Admin Dose 40 MG; Start 04/23/16 at 06:00 Fenofibrate (Tricor) 48 mg DAILY PO Last administered on 04/28/16 09:04; Admin Dose 48 MG; Start 04/24/16 at 09:00 Guaifenesin (Robitussin Liquid Cup) 200 mg Q4H PRN PO COUGH Last administered on 04/26/16 12:44; Admin Dose 200 MG; Start 04/26/16 at 12:00 TRACI LOZANO Apr 28, 2016 12:59
[2016-04-28 21:33] VITALS: BP 152/71; RESP 20
--- NOTE | 2016-04-28 21:57 | GILP ---
DATE OF PROCEDURE: 04/24/2016 DATE: 04/24/2016 NAME OF PROCEDURE: Colonoscopy with biopsies. SURGEON: Antonio Maxwell MD. HISTORY AND INDICATIONS: The patient with abnormal CT suggestive of neoplasm in the ascending colon . PREMEDICATION: Monitored anesthesia care by anesthesiologist. INSTRUMENT USED: Olympus colonoscope. PREPARATION: Fair. TECHNIQUE: After informed consent, with the patient/relatives understanding the procedure, its indic ations potential risks and complications, including but not limited to: allergic reaction, bleeding, perforation, infection, missed lesions, and, after all pertinent questions were answered to the pat ient's satisfaction, the patient/relatives signed the witnessed informed consent. Following this, premedication was administered slowly IV push by under careful cardiovascular and re spiratory monitoring with pulse oximetry, automatic blood pressure and surveillance system monitor. Once the sedati ve effect was achieved, the patient was placed in the left lateral decubitus position, digital recta l examination was performed. The colonoscope was then introduced and advanced under visual control throughout all segments of the colon including: the rectum, sigmoid, descending colon, splenic flexu re, transverse colon, hepatic flexure, ascending colon and finally reaching the cecum which was holli rly identified by transillumination, finger indentation and the ileocecal valve. Careful examinatio n of the mucosa of the lower gastrointestinal tract both on insertion as well as withdrawal of the i nstrument disclosed the following findings: Rectal Examination: No evidence of perirectal disease, no masses. Colonic Mucosa: The colonic mucosa unremarkable until we reached the mid ascending colon where a daniel y large circumferential mass was identified. The mass is clearly a malignant neoplasm. The lumen i s severely compromised. We were able to advance the instrument and the proximal colon appears unrem arkable including the ileocecal valve and the appendiceal orifice. Multiple biopsies were obtained. Localization tattoo was applied. The instrument was withdrawn. On withdrawal of the instrument, no additional abnormalities are noted with exception of moderate size internal hemorrhoids. The instrument was then withdrawn, the patient tolerated the procedure well and was transferred out of the Endoscopy Suite awake and in good condition to continue recovery under observation. IMPRESSION: 1. Large malignant neoplasm in the mid ascending colon. Biopsies obtained. Localization tattoo ap plied. 2. Moderate sized internal hemorrhoids. PLAN: The patient will require surgical consultation. Dictated By: ANTONIO MAXWELL MS/NTS Conf#: [id number] DID#: [id number] CC: MICHAEL FUCHS; ANTONIO MAXWELL;*End*
[2016-04-28 22:00] VITALS: BP 133/64; PULSE 60
[2016-04-29] VITALS (13 sets, daily range): BP systolic 93–136; BP diastolic 53–71; PULSE 58–91; RESP 18–24
[2016-04-29] MEDS: PANTOPRAZOLE 40 MG INJ IV SCH ×2 (05:04→07:53)
[2016-04-29] MEDS ORDERED: BUPIVACAINE 0.5%/EPI (SDV) 30 ML INJ ONE (06:52)
[2016-04-29] MEDS ORDERED: FENTAnyl 50 MCG/ML VIAL ONE (07:45)
[2016-04-29] MEDS: FENOFIBRATE 48 MG TAB PO SCH (07:53)
[2016-04-29] MEDS: HEPARIN 5,000 UNIT/0.5 ML SYG SC SCH ×2 (07:53→22:05)
--- NOTE | 2016-04-29 07:57 | PN ---
Date/Time of Note Date/Time of Note DATE: 04/28/16 TIME: 17:55 Assessment/Plan Lines/Catheters IV Catheter Type (from [facility]): Saline Lock Coronel in Place (from [facility]): No Assessment/Plan Chief Complaint/Hosp Course 1. Right colon mass, adenocarcinoma, moderately differentiated. CT noted. -lap right colectomy tomorrow -onc f/u 2. Anemia, probably 2nd above. Stable -tx prn 3. BMI 27 -encourage diet optimization -encourage exercise optimization 4. Hypokalemia, corrected 5. Hypernatremia -correct with judicious fluid management Thank you, Late entry 04/28 Problems: Subjective 24 Hr Interval Summary No f/c. No n/v. No abdominal pain. No cp/sob. No cough. No sz. No rash. No bullard/dizzy/visual or neuro changes. No dysuria. OR tomorrow. Exam/Review of Systems Vital Signs Vitals Vital Signs Date Time Temp Pulse Resp B/P Pulse Ox O2 Delivery O2 Flow Rate FiO2 04/29/16 06:37 98.0 64 18 136/67 99 04/26/16 08:00 Room Air Intake and Output 04/28/16 04/28/16 04/29/16 15:00 23:00 07:00 Intake Total 1280 ml 350 ml Balance 1280 ml 350 ml Exam Free Text/Dictation Constitutional: alert, obese (BMI 27), oriented, No distress Psych: nl mood/affect, No anxiety, No confusion Eyes: EOMI, PERRL, nl conjunctiva, nl sclera ENMT: mucosa pink and moist, nl external ears & nose, nl lips & teeth Neck: non-tender, supple, No jvd Respiratory: normal air movement, No congested cough, No diminished breath sounds, No labored breathing Cardiovascular: regular rate and rhythm, No edema Gastrointestinal: non-tender, soft, No distended, No firm, No rebound or guarding Musculoskeletal: nl extremities to inspection, nl gait and stance, No joint tenderness Extremities: normal pulses, No calf tenderness, No edema Neurological: nl mental status, nl speech, nl strength, No confused Skin: nl turgor, No diaphoresis, No rash or lesions Lymph: nl lymph nodes, nontender Results Result Diagram: 04/28/16 1019 04/28/16 1019 NORA BLEVINS MD Apr 29, 2016 07:57
--- NOTE | 2016-04-29 07:58 | PN ---
Date/Time of Note Date/Time of Note DATE: 04/29/16 TIME: 07:57 Assessment/Plan Lines/Catheters IV Catheter Type (from [facility]): Saline Lock Coronel in Place (from [facility]): No Assessment/Plan Chief Complaint/Hosp Course 1. Right colon mass, adenocarcinoma, moderately differentiated. CT noted. -lap right colectomy today -onc f/u 2. Anemia, probably 2nd above. Stable -tx prn 3. BMI 27 -encourage diet optimization -encourage exercise optimization 4. Hypokalemia, corrected 5. Hypernatremia -correct with judicious fluid management Thank you, Problems: Subjective 24 Hr Interval Summary No f/c. No n/v. No abdominal pain. No cp/sob. No cough. No sz. No rash. No bullard/dizzy/visual or neuro changes. No dysuria. OR today. Exam/Review of Systems Vital Signs Vitals Vital Signs Date Time Temp Pulse Resp B/P Pulse Ox O2 Delivery O2 Flow Rate FiO2 04/29/16 06:37 98.0 64 18 136/67 99 04/26/16 08:00 Room Air Intake and Output 04/28/16 04/28/16 04/29/16 15:00 23:00 07:00 Intake Total 1280 ml 350 ml Balance 1280 ml 350 ml Exam Free Text/Dictation Constitutional: alert, obese (BMI 27), oriented, No distress Psych: nl mood/affect, No anxiety, No confusion Eyes: EOMI, PERRL, nl conjunctiva, nl sclera ENMT: mucosa pink and moist, nl external ears & nose, nl lips & teeth Neck: non-tender, supple, No jvd Respiratory: normal air movement, No congested cough, No diminished breath sounds, No labored breathing Cardiovascular: regular rate and rhythm, No edema Gastrointestinal: non-tender, soft, No distended, No firm, No rebound or guarding Musculoskeletal: nl extremities to inspection, nl gait and stance, No joint tenderness Extremities: normal pulses, No calf tenderness, No edema Neurological: nl mental status, nl speech, nl strength, No confused Skin: nl turgor, No diaphoresis, No rash or lesions Lymph: nl lymph nodes, nontender Results Result Diagram: 04/28/16 1019 04/28/16 1019 NORA BLEVINS MD Apr 29, 2016 07:58
[2016-04-29] MEDS ORDERED: metroNIDAZOLE 500 MG/NS (PMX) 100 ML IVPB ONE (08:25)
[2016-04-29] MEDS ORDERED: LIDOCAINE 1% (MPF) 30 ML INJ ONE (08:47)
[2016-04-29] MEDS ORDERED: METOCLOPRAMIDE 10 MG INJ IV PRN (09:00)
[2016-04-29] MEDS ORDERED: MEPERIDINE 25 MG INJ IV PRN (09:00)
[2016-04-29] MEDS ORDERED: DIPHENHYDRAMINE 50 MG INJ IV PRN (09:00)
[2016-04-29] MEDS ORDERED: HYDROmorphONE (0.2 MG/ML) 10ML SYG IV PRN ×3 (09:00)
[2016-04-29] MEDS ORDERED: ONDANSETRON 4 MG INJ IV PRN (09:00)
[2016-04-29] MEDS ORDERED: FENTAnyl 50 MCG/ML VIAL IV PRN ×2 (09:00)
[2016-04-29] MEDS ORDERED: CEFAZOLIN 1 GM INJ ONE (10:45)
[2016-04-29] MEDS ORDERED: PROPOFOL 40 ML ONE (10:45)
[2016-04-29] MEDS ORDERED: GLYCOPYRROLATE 0.4 MG INJ ONE (10:45)
[2016-04-29] MEDS ORDERED: SUCCINYLCHOLINE CHLORIDE 100 MG/5 ML SYG IV ONE (10:45)
[2016-04-29] MEDS ORDERED: LIDOCAINE 2% (SDV) 5 ML INJ ONE (10:45)
[2016-04-29] MEDS ORDERED: ROPIVACAINE 0.5 % 30 ML VIAL ONE (10:45)
[2016-04-29] MEDS ORDERED: NEOSTIGMINE 3 MG/3 ML SYRINGE ONE (10:45)
[2016-04-29] MEDS ORDERED: ROCURONIUM 50 MG INJ ONE (10:45)
--- NOTE | 2016-04-29 10:47 | CONS ---
Date/Time of Note Date/Time of Note DATE: 04/29/16 TIME: 6:45 Assessment/Plan Assessment/Plan Chief Complaint/Hosp Course Abdominal pain /nausea/vomiting,associated with colonic mass in the mid Ascending colon, c/w adenoca * post Colonoscopy * Large partially obstructing mass mid ascending colon, biopsied and tattooed * Moderate sized internal hemorrhoids * pathology- [facility] * CEA- MIN ELEVATED AT 7.5 * CT AP- NO METASTATIC DIS * surgery - today Normocytic anemia WITH N RDW * Monitor H&H every 6 hours, transfuse 2 units for hemoglobin less than 7.5 * PPI therapy * IRON STUDIES AND FERRITIN- REVIEWED * START IV IRON HYPOKALEMIA REPLACE MONITOR INCREASED TOTAL PROTEIN RECHECK MONITOR Obesity Problems: Consultation Date/Type/Reason Admit Date/Time Apr 24, 2016 at 10:36 Initial Consult Date 04/25/16 Type of Consultation: HEMEONC Referring Provider: MICHAEL FUCHS 24 HR Interval Summary Free Text/Dictation all noted for surgery today IV IRON ORDERED Exam/Review of Systems Vital Signs Vitals Vital Signs Date Time Temp Pulse Resp B/P Pulse Ox O2 Delivery O2 Flow Rate FiO2 04/29/16 06:37 98.0 64 18 136/67 99 04/26/16 08:00 Room Air Intake and Output 04/28/16 04/28/16 04/29/16 15:00 23:00 07:00 Intake Total 1280 ml 350 ml Balance 1280 ml 350 ml Exam Constitutional: alert, obese, oriented Psych: nl mood/affect Head: atraumatic, normocephalic Eyes: PERRL ENMT: mucosa pink and moist Neck: non-tender, supple Respiratory: clear to auscultation Cardiovascular: regular rate and rhythm, No murmurs/extra sounds Gastrointestinal: bowel sounds, non-tender, soft Extremities: No edema Neurological: nl mental status, nl speech, nl strength Results Result Diagram: 04/28/16 1019 04/28/16 1019 Medications Medications Current Medications Ondansetron HCl (Zofran Inj) 4 mg Q6H PRN IV NAUSEA AND/OR VOMITING; Start 04/22 at 19:00 Acetaminophen (Tylenol Tab) 650 mg Q6H PRN PO PAIN LEVEL 1-3 OR FEVER; Start at 19:00 Acetaminophen/ Hydrocodone Bitart ([place] (5/325)) 1 tab Q6H PRN PO MODERATE PAIN LEVEL 4-6 Last administered on 04/26/16 20:48; Admin Dose 1 TAB; Start 04/22 at 19:00 Morphine Sulfate (morphine) 2 mg Q4H PRN IV SEVERE PAIN LEVEL 7-10; Start at 19:00 Docusate Sodium (Colace) 100 mg Q12H PRN PO CONSTIPATION; Start 04/22/16 at 19: 00 Magnesium Hydroxide (Milk Of Mag) 30 ml DAILY PRN PO CONSTIPATION; Start at 19:00 Sodium Biphosphate/ Sodium Phosphate (Fleet Enema) 133 ml DAILY PRN [place] CONSTIPATION; Start 04/22/16 at 19:00 Heparin Sodium (Porcine) (Heparin (5000 Units/0.5 ml)) 5,000 unit Q12 SC Last administered on 04/28/16 21:25; Admin Dose 5,000 UNIT; Start 04/22/16 at 21:00 Lorazepam (Ativan) 0.5 mg Q6H PRN IV ANXIETY; Start 04/22/16 at 19:00 Nitroglycerin (Nitroglycerin (Sl Tab) 0.4 Mg) 1 tab Q5M PRN SL ANGINA; Start at 19:00 Pantoprazole (Protonix Iv) 40 mg DAILY@06 IV Last administered on 04/29/16 05: 04; Admin Dose 40 MG; Start 04/23/16 at 06:00 Fenofibrate (Tricor) 48 mg DAILY PO Last administered on 04/28/16 09:04; Admin Dose 48 MG; Start 04/24/16 at 09:00 Guaifenesin (Robitussin Liquid Cup) 200 mg Q4H PRN PO COUGH Last administered on 04/26/16 12:44; Admin Dose 200 MG; Start 04/26/16 at 12:00 JOSETTE GEE MD Apr 29, 2016 10:47
--- NOTE | 2016-04-29 12:16 | OPR ---
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 Laparoscopic right colectomy 2. Laparoscopic liver wedge resection biopsy 3. Laparoscopic extensive lysis of adhesions from her previous operations 4. Laparoscopic implantation of xenograft biologic over the anastomosis for improved healing 5. Local anesthetic [place], [id number] 6. Difficult operation, modifier 22 Surgeon: NORA BLEVINS MD Anesthesia: general (plus local plus regional) Anesthesiologist: KERRI JOSHI Estimated Blood Loss: 50 - 100 ml's Specimens Right colon Liver Tubes/Drains ACell, 10 x 15 cm, 3 layer Complications: None Pt Condition Post Procedure: stable Disposition: PACU Indications Per notes Risks include but are not limited to bleeding, infection, abscess, seroma, leak , damage to intestines or any intra-abdominal/intrapelvic structures, hernia formation, chronic pain, need for re-operations or further surgeries, CA, stroke , PE, DVT, pneumonia, organ failures, or even . Procedure Description Patient was brought in, placed supine on the operating table, SCDs were placed, and preoperative antibiotics administered. After induction of anesthesia, all pressure points were well-padded and timeout was performed. Local anesthetic was injected at all surgical sites. Incision was made in the left upper quadrant and using an Optiview 12 mm port and the 5 mm 0 scope abdomen was entered and insufflated to 15 mmHg with CO2. Laparoscopy with a 5 mm 30 scope did not identify any injuries. The tattooed right colon lesion was identified. There was attachments of omentum, stomach, and transverse colon to the anterior abdominal wall Under direct visualization 5 mm ports were placed in left lower quadrant and lower mid abdomen through her previous incision. Another 5 mm port was placed in supero-lateral left upper quadrant. Laparoscopic bilateral transversus abdominis plane block was performed under laparoscopic visualization to aid with pain control intra-and postoperatively. Patient was placed in Trendelenburg and right side up. Appendix was identified. The right colon was mobilized off of the abdominal wall using scissors with complete hemostasis. They the peritoneum on the medial aspect of the proximal colon and transverse colon was mobilized as well using electrocautery. The iliocolic vascular bundle was identified and transected with echelon 60 white load stapler at its takeoff. The right branch of middle colic was identified and that was taken with the LigaSure. The omentum was taken off of the abdominal wall and gastro-colonic ligament was identified and opened using LigaSure as well. I was able to mobilize the transverse colon off of the stomach and the liver. The hepatic flexure was taken down using LigaSure as well fully mobilizing the right and transverse colon. At this point the mesentery was sequentially taken with LigaSure. Upper midline incision was made through her previous incision. Abdomen was entered and Steve retractor was applied. The specimen was exteriorized. Terminal ileum was transected with echelon 60 blue load stapler. The transverse colon and mid to distal segment was transected with the same stapler. The specimen was fully mobilized. The terminal ileum was placed [id number] along the distal transverse colon and stay sutures were placed using 2-0 silk sutures. Enterotomies were created in both structures and 2 firings of echelon 60 blue loads were used to create the anastomosis. Crotch stitch was placed 2 using same silk suture. The open end of the anastomosis was stapled using the same echelon stapler. The staple line was reinforced with the 2-0 silk Lembert suture in a running fashion. To allow improved healing of the anastomosis, 7 x 10 cm 3 layer ACell, xenograft biologic sheet was placed over the anastomosis. Omentum was pulled over the anastomosis. There was complete hemostasis. Peritoneum was closed with 3-0 Vicryl suture in a running fashion. The fascia was approximated using 1 Vicryl suture in figure- of-eight interrupted fashion. Subcutaneous tissue was closed in a running fashion with 2-0 Vicryl followed by 4-0 Monocryl subcuticular closure of the skin. Between each layer the wound was fully irrigated and completely hemostatic. Abdomen was re-insufflated was no bleeding and the anastomosis was laying comfortably. The 12 m port site was closed with Endo Close and 0 Vicryl in a [id number] manner. Ports and CO2 were removed under direct visualization. Wounds were thoroughly irrigated and skin was closed with 4-0 Monocryl in subcuticular fashion. Dermabond was applied. Patient was extubated and transferred to recovery room in stable condition. All counts were correct and the end of the operation 2. NORA BLEVINS MD 11, 2017 12:16
[2016-04-29] MEDS ORDERED: CEFTRIAXONE 1 GM/50 ML (PMX) 50 ML IVPB SCH (12:30)
--- NOTE | 2016-04-29 13:13 | PN ---
Date/Time of Note Date/Time of Note DATE: 04/29/16 TIME: 13:09 Assessment/Plan VTE Prophylaxis VTE Prophylaxis Intervention: heparin Lines/Catheters IV Catheter Type (from Nrs): Peripheral IV Urinary Cath still in place: Yes Reason Cath still needed: other (indicate) (post op) Assessment/Plan Assessment/Plan 71-year-old female with no significant past medical history presenting with abdominal pain found with mucosal thickening of the proximal ascending colon measuring about 2 to 3 cm, highly suspicious for obstructing colon neoplasm. 1. Abdominal pain with findings of colonic mass and adenocarcinoma on biopsy heme onc recommends gen surg review / s/p . Laparoscopic right colectomy, liver wedge resection biopsy and extensive lysis of adhesions from her previous operations 04/29/15 2. Normocytic anemia with leucopenia and lymphocytosis. No signs of any bleeding. Hemoglobin and hematocrit are stable. Monitor for now. 3. Gastrointestinal prophylaxis, proton pump inhibitor. 4. Deep venous thrombosis prophylaxis, heparin subcutaneously Dispo: Routine post op care / incentive spirometry / pain control / early ambulation as tolerated F/u path findings. Subjective 24 Hr Interval Summary Free Text/Dictation Patient seen and examined. post op / sleepy Exam/Review of Systems Vital Signs Vitals Vital Signs Date Time Temp Pulse Resp B/P Pulse Ox O2 Delivery O2 Flow Rate FiO2 04/29/16 12:24 58 23 105/54 94 Room Air 04/29/16 11:46 98.2 Intake and Output 04/28/16 04/28/16 04/29/16 15:00 23:00 07:00 Intake Total 1280 ml 350 ml Balance 1280 ml 350 ml Exam Constitutional: other (lethargic), No alert Head: normocephalic Eyes: PERRL Respiratory: diminished breath sounds Cardiovascular: regular rate and rhythm, No murmurs/extra sounds Gastrointestinal: bowel sounds (hypoactive), distended, surgical scars Extremities: No edema Neurological: lethargic Results Result Diagram: 04/28/16 1019 04/28/16 1019 Medications Medications Current Medications Ondansetron HCl (Zofran Inj) 4 mg Q6H PRN IV NAUSEA AND/OR VOMITING; Start 04/22 at 19:00 Acetaminophen (Tylenol Tab) 650 mg Q6H PRN PO PAIN LEVEL 1-3 OR FEVER; Start at 19:00 Acetaminophen/ Hydrocodone Bitart ([place] (5/325)) 1 tab Q6H PRN PO MODERATE PAIN LEVEL 4-6 Last administered on 04/26/16 20:48; Admin Dose 1 TAB; Start 04/22 at 19:00 Morphine Sulfate (morphine) 2 mg Q4H PRN IV SEVERE PAIN LEVEL 7-10; Start at 19:00 Docusate Sodium (Colace) 100 mg Q12H PRN PO CONSTIPATION; Start 04/22/16 at 19: 00 Magnesium Hydroxide (Milk Of Mag) 30 ml DAILY PRN PO CONSTIPATION; Start at 19:00 Sodium Biphosphate/ Sodium Phosphate (Fleet Enema) 133 ml DAILY PRN [place] CONSTIPATION; Start 04/22/16 at 19:00 Heparin Sodium (Porcine) (Heparin (5000 Units/0.5 ml)) 5,000 unit Q12 SC Last administered on 04/28/16 21:25; Admin Dose 5,000 UNIT; Start 04/22/16 at 21:00 Lorazepam (Ativan) 0.5 mg Q6H PRN IV ANXIETY; Start 04/22/16 at 19:00 Nitroglycerin (Nitroglycerin (Sl Tab) 0.4 Mg) 1 tab Q5M PRN SL ANGINA; Start at 19:00 Pantoprazole (Protonix Iv) 40 mg DAILY@06 IV Last administered on 04/29/16 05: 04; Admin Dose 40 MG; Start 04/23/16 at 06:00 Fenofibrate (Tricor) 48 mg DAILY PO Last administered on 04/28/16 09:04; Admin Dose 48 MG; Start 04/24/16 at 09:00 Guaifenesin 200 mg 200 mg Q4H PRN PO COUGH Last administered on 04/26/16 12:44 ; Admin Dose 200 MG; Start 04/26/16 at 12:00 Ferric Sodium Gluconate Complex 125 mg/Sodium Chloride 110 ml @ 110 mls/hr Q24H IVPB ; Start 04/29/16 at 12:30; Stop 05/06/16 at 13:29 Metronidazole (Flagyl 500 Mg (Pmx)) 100 ml @ 100 mls/hr Q8 IVPB ; Start at 14:00; Stop 04/30/16 at 06:59 TRACI LOZANO Apr 29, 2016 13:13
[2016-04-29] MEDS: ONDANSETRON 4 MG INJ IV PRN (13:46)
[2016-04-29 14:13] LABS: BASOPHILS % 0.1 % (0.0-2.0); EOSINOPHILS % 0.2 % (0.0-7.0); HEMATOCRIT 35.2 % (37.0-47.0); HEMOGLOBIN 11.5 g/dl (12.0-16.0); LYMPHOCYTES % 10.3 % (15.0-51.0); MEAN CORPUSCULAR HEMOGLOBIN 28.5 pg (29.0-33.0); MEAN CORPUSCULAR HGB CONC 32.7 g/dl (32.0-37.0); MEAN CORPUSCULAR VOLUME 87.1 fl (82.0-101.0); MEAN PLATELET VOLUME 7.5 fl (7.4-10.4); MONOCYTE # 0.6 10^3/ul (0.3-0.9); MONOCYTES % 6.2 % (0.0-11.0); NEUTROPHIL # 7.8 10^3/ul (1.6-7.5); NEUTROPHILS % 83.2 % (39.0-77.0); PLATELET COUNT 248 10^3/UL (140-440); RED BLOOD COUNT 4.04 10^6/ul (4.20-5.40); RED CELL DISTRIBUTION WIDTH 14.1 % (11.5-14.5); UNCORRECTED WBC 9.3 10^3/ul (4.8-10.8); WHITE BLOOD COUNT 9.3 10^3/ul (4.8-10.8)
[2016-04-29 14:16] LABS: CONDITION 1
[2016-04-29 14:27] LABS: POTASSIUM 3.3 mmol/L (3.5-5.1)
[2016-04-29 14:30] LABS: CREATININE 0.62 mg/dl (0.44-1.00)
[2016-04-29 14:31] LABS: CALCIUM 8.6 mg/dl (8.4-10.2)
[2016-04-29] MEDS: metroNIDAZOLE 500 MG/NS (PMX) 100 ML IVPB SCH ×2 (14:38→22:07)
[2016-04-29] MEDS: SOD FERRIC GLUC COMPLX 125 MG in SOD CHLORIDE 0.9% 100 ML IVPB SCH (15:40)
[2016-04-29 17:48] LABS: ADD UMIC NO; URINE BILIRUBIN (Dip) NEGATIVE (NEGATIVE); URINE BLOOD (Dip) NEGATIVE (NEGATIVE); URINE COLOR LT. YELLOW (YELLOW); URINE KETONES (Dip) NEGATIVE (NEGATIVE); URINE LEUKOCYTE ESTERASE (Dip) NEGATIVE (NEGATIVE); URINE NITRITE (Dip) NEGATIVE (NEGATIVE); URINE TOTAL PROTEIN (Dip) NEGATIVE (NEGATIVE); URINE UROBILINOGEN (Dip) 0.2 E.U./dL (0.1-1.0)
[2016-04-29] MEDS: morphine 2 MG INJ IV PRN (22:12)
[2016-04-30] MEDS: morphine 2 MG INJ IV PRN (05:12)
[2016-04-30] MEDS: PANTOPRAZOLE 40 MG INJ IV SCH (05:13)
[2016-04-30] MEDS: metroNIDAZOLE 500 MG/NS (PMX) 100 ML IVPB SCH (05:14)
[2016-04-30 07:43] VITALS: BP 92/47; RESP 18
[2016-04-30 07:44] LABS: ALBUMIN 3.5 g/dl (3.3-4.9); POTASSIUM 3.4 mmol/L (3.5-5.1)
[2016-04-30 07:46] LABS: BILIRUBIN,INDIRECT 0.3 mg/dl (0-1.1); BILIRUBIN,TOTAL 0.3 mg/dl (0.2-1.3); CREATININE 0.66 mg/dl (0.44-1.00)
[2016-04-30 07:47] LABS: ALBUMIN/GLOBULIN RATIO 1.06; CALCIUM 8.5 mg/dl (8.4-10.2); TOTAL PROTEIN 6.8 g/dl (6.1-8.1)
[2016-04-30] MEDS: FENOFIBRATE 48 MG TAB PO SCH (08:32)
[2016-04-30] MEDS: HEPARIN 5,000 UNIT/0.5 ML SYG SC SCH ×2 (08:33→20:18)
[2016-04-30 08:57] LABS: BASOPHILS % 0.3 % (0.0-2.0); HEMOGLOBIN 10.1 g/dl (12.0-16.0); LYMPHOCYTES # 0.9 10^3/ul (0.8-2.9); LYMPHOCYTES % 12.7 % (15.0-51.0); MEAN CORPUSCULAR HEMOGLOBIN 28.9 pg (29.0-33.0); MEAN CORPUSCULAR HGB CONC 33.8 g/dl (32.0-37.0); MEAN CORPUSCULAR VOLUME 85.5 fl (82.0-101.0); MEAN PLATELET VOLUME 8.1 fl (7.4-10.4); MONOCYTE # 0.7 10^3/ul (0.3-0.9); MONOCYTES % 9.7 % (0.0-11.0); NEUTROPHIL # 5.6 10^3/ul (1.6-7.5); NEUTROPHILS % 77.3 % (39.0-77.0); PLATELET COUNT 224 10^3/UL (140-440); RED BLOOD COUNT 3.51 10^6/ul (4.20-5.40); RED CELL DISTRIBUTION WIDTH 14.9 % (11.5-14.5); UNCORRECTED WBC 7.2 10^3/ul (4.8-10.8); WHITE BLOOD COUNT 7.2 10^3/ul (4.8-10.8)
[2016-04-30 09:02] LABS: CONDITION 1; LH ANALYZER COMMENTS 1
--- NOTE | 2016-04-30 11:22 | PN ---
Date/Time of Note Date/Time of Note DATE: 04/30/16 TIME: 11:19 Assessment/Plan VTE Prophylaxis VTE Prophylaxis Intervention: ambulation, heparin Lines/Catheters IV C[facility]ter Type (from [facility] Peripheral IV Urinary Cath still in place: Yes Reason Cath still needed: other (indicate) (post op) Assessment/Plan Assessment/Plan 71-year-old female with no significant past medical history presenting with abdominal pain found with mucosal thickening of the proximal ascending colon measuring about 2 to 3 cm, highly suspicious for obstructing colon neoplasm. 1. Abdominal pain with findings of colonic mass and adenocarcinoma on biopsy s/p . Laparoscopic right colectomy, liver wedge resection biopsy and extensive lysis of adhesions from her previous operations 04/29/15 2. Normocytic anemia with leucopenia and lymphocytosis. No signs of any bleeding. Hemoglobin and hematocrit are stable. Monitor for now. 3. Gastrointestinal prophylaxis, proton pump inhibitor. 4. Deep venous thrombosis prophylaxis, heparin subcutaneously Dispo: Continue Routine post op care / incentive spirometry / pain control / early ambulation as tolerated / patient remains NPO per surgery; f/u recs F/u path findings. Subjective 24 Hr Interval Summary Free Text/Dictation Patient seen still very lethargic from surgery We went over incentive spirometer use Exam/Review of Systems Vital Signs Vitals Vital Signs Date Time Temp Pulse Resp B/P Pulse Ox O2 Delivery O2 Flow Rate FiO2 04/30/16 07:43 98.3 83 18 92/47 91 04/29/16 20:00 Room Air Intake and Output 04/29/16 04/29/16 04/30/16 15:00 23:00 07:00 Intake Total 1200 ml 200 ml Output Total 350 ml 700 ml 350 ml Balance 850 ml -700 ml -150 ml Exam Constitutional: alert, No oriented Psych: anxiety Head: normocephalic Eyes: PERRL ENMT: No mucosa pink and moist (dry) Respiratory: diminished breath sounds Cardiovascular: regular rate and rhythm, No murmurs/extra sounds Gastrointestinal: bowel sounds, distended, soft, surgical scars, tender Extremities: No edema Neurological: lethargic, nl mental status, nl speech Results Result Diagram: 04/30/16 0558 04/30/16 0558 Results 24 hrs Laboratory Tests Test 04/29/16 13:56 04/29/16 16:00 04/30/16 05:58 Anion Gap 22 H 15 # Basophils # 0.0 0.0 Basophils % 0.1 0.3 Blood Morphology Comment Blood Urea Nitrogen 9 12 Calcium Level 8.6 8.5 Carbon Dioxide Level 22 27 Chloride Level 103 104 Creatinine 0.62 0.66 Eosinophils # 0.0 0.0 Eosinophils % 0.2 0.0 Glucose Level 154 131 Hematocrit 35.2 L 30.0 L Hemoglobin 11.5 L 10.1 L Lymphocytes # 1.0 0.9 Lymphocytes % 10.3 L 12.7 L Mean Corpuscular Hemoglobin 28.5 L 28.9 L Mean Corpuscular Hemoglobin Concent 32.7 33.8 Mean Corpuscular Volume 87.1 85.5 Mean Platelet Volume 7.5 8.1 Monocytes # 0.6 0.7 Monocytes % 6.2 9.7 Neutrophils # 7.8 H 5.6 Neutrophils % 83.2 H 77.3 H Nucleated Red Blood Cells # 0.0 0.0 Nucleated Red Blood Cells % 0.0 0.0 Platelet Count 248 # 224 Potassium Level 3.3 L 3.4 L Red Blood Count 4.04 L 3.51 L Red Cell Distribution Width 14.1 14.9 H Sodium Level 144 143 White Blood Count 9.3 # 7.2 # Urine Bilirubin NEGATIVE Urine Clarity CLEAR Urine Color LT. YELLOW Urine Glucose 0.1% H Urine Hemoglobin NEGATIVE Urine Ketones NEGATIVE Urine Leukocyte Esterase NEGATIVE Urine Nitrite NEGATIVE Urine Specific [place] 1.020 Urine Total Protein NEGATIVE Urine Urobilinogen 0.2 E.U./dL Urine pH 5.5 Alanine Aminotransferase (ALT/SGPT) 30 Albumin 3.5 Albumin/Globulin Ratio 1.06 Alkaline Phosphatase 65 Aspartate Amino Transf (AST/SGOT) 47 H Direct Bilirubin 0.00 Globulin 3.30 H Indirect Bilirubin 0.3 Total Bilirubin 0.3 Total Protein 6.8 Medications Medications Current Medications Ondansetron HCl (Zofran Inj) 4 mg Q6H PRN IV NAUSEA AND/OR VOMITING Last administered on 04/29/16t 13:46; Admin Dose 4 MG; Start 04/22/16 at 19:00 Acetaminophen (Tylenol Tab) 650 mg Q6H PRN PO PAIN LEVEL 1-3 OR FEVER; Start at 19:00 Acetaminophen/ Hydrocodone Bitart ([place] (5/325)) 1 tab Q6H PRN PO MODERATE PAIN LEVEL 4-6 Last administered on 04/26/16 20:48; Admin Dose 1 TAB; Start 04/22 at 19:00 Morphine Sulfate (morphine) 2 mg Q4H PRN IV SEVERE PAIN LEVEL 7-10 Last administered on 04/30/16 05:12; Admin Dose 2 MG; Start 04/22/16 at 19:00 Docusate Sodium (Colace) 100 mg Q12H PRN PO CONSTIPATION; Start 04/22/16 at 19: 00 Magnesium Hydroxide (Milk Of Mag) 30 ml DAILY PRN PO CONSTIPATION; Start at 19:00 Sodium Biphosphate/ Sodium Phosphate (Fleet Enema) 133 ml DAILY PRN [place] CONSTIPATION; Start 04/22/16 at 19:00 Heparin Sodium (Porcine) (Heparin (5000 Units/0.5 ml)) 5,000 unit Q12 SC Last administered on 04/30/16 08:33; Admin Dose 5,000 UNIT; Start 04/22/16 at 21:00 Lorazepam (Ativan) 0.5 mg Q6H PRN IV ANXIETY; Start 04/22/16 at 19:00 Nitroglycerin (Nitroglycerin (Sl Tab) 0.4 Mg) 1 tab Q5M PRN SL ANGINA; Start at 19:00 Pantoprazole (Protonix Iv) 40 mg DAILY@06 IV Last administered on 04/30/16 05: 13; Admin Dose 40 MG; Start 04/23/16 at 06:00 Fenofibrate (Tricor) 48 mg DAILY PO Last administered on 04/30/16 08:32; Admin Dose 48 MG; Start 04/24/16 at 09:00 Guaifenesin 200 mg 200 mg Q4H PRN PO COUGH Last administered on 04/26/16 12:44 ; Admin Dose 200 MG; Start 04/26/16 at 12:00 Ferric Sodium Gluconate Complex/ Sodium Chloride (Ferrlecit/NS) 110 ml @ 110 mls/hr Q24H IVPB Last administered on 04/29/16 15:40; Admin Dose 110 MLS/HR; Start 04/29/16 at 12:30; Stop 05/06/16 at 13:29 Procedures Procedures Procedure Date: Apr 29, 2016 Preoperative Diagnosis 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 Laparoscopic right colectomy 2. Laparoscopic liver wedge resection biopsy 3. Laparoscopic extensive lysis of adhesions from her previous operations 4. Laparoscopic implantation of xenograft biologic over the anastomosis for improved healing TRACI LOZANO Apr 30, 2016 11:22
[2016-04-30] MEDS: SOD FERRIC GLUC COMPLX 125 MG in SOD CHLORIDE 0.9% 100 ML IVPB SCH (12:36)
--- NOTE | 2016-04-30 13:21 | PN ---
Date/Time of Note Date/Time of Note DATE: 04/30/16 TIME: 13:19 Assessment/Plan Lines/Catheters IV Catheter Type (from [facility]): Peripheral IV Cor[place] in Place (from [facility]): No Assessment/Plan Chief Complaint/Hosp Course 1. Right colon mass, adenocarcinoma, moderately differentiated s/p lap right colectomy, liver bx 04/29. -await path -oob/ambulate -IS -onc f/u 2. Anemia, probably 2nd above. Stable -tx prn 3. BMI 27 -encourage diet optimization -encourage exercise optimization 4. Hypokalemia, corrected 5. Hypernatremia -correct with judicious fluid management Thank you, Problems: Subjective 24 Hr Interval Summary s/p Lap right colectomy, liver bx 04/29. No f/c. No n/v. Min abdominal pain. No cp/sob. No cough. No sz. No rash. No bullard/dizzy/visual or neuro changes. No dysuria. Exam/Review of Systems Vital Signs Vitals Vital Signs Date Time Temp Pulse Resp B/P Pulse Ox O2 Delivery O2 Flow Rate FiO2 04/30/16 07:43 98.3 83 18 92/47 91 04/29/16 20:00 Room Air Intake and Output 04/29/16 04/29/16 04/30/16 15:00 23:00 07:00 Intake Total 1200 ml 200 ml Output Total 350 ml 700 ml 350 ml Balance 850 ml -700 ml -150 ml Exam Free Text/Dictation Constitutional: alert, obese (BMI 27), oriented, No distress Psych: nl mood/affect, No anxiety, No confusion Eyes: EOMI, PERRL, nl conjunctiva, nl sclera ENMT: mucosa pink and moist, nl external ears & nose, nl lips & teeth Neck: non-tender, supple, No jvd Respiratory: normal air movement, No congested cough, No diminished breath sounds, No labored breathing Cardiovascular: regular rate and rhythm, No edema Gastrointestinal: Min tender, soft, No distended, No firm, No rebound or guarding Musculoskeletal: nl extremities to inspection, nl gait and stance, No joint tenderness Extremities: normal pulses, No calf tenderness, No edema Neurological: nl mental status, nl speech, nl strength, No confused Skin: nl turgor, No diaphoresis, No rash or lesions Lymph: nl lymph nodes, nontender Results Result Diagram: 04/30/16 0558 04/30/16 0558 NORA BLEVINS MD Apr 30, 2016 13:21
[2016-04-30] MEDS: HYDROCODONE/APAP (5/325) TAB PO PRN (18:57)
[2016-04-30] MEDS ORDERED: POTASSIUM CHLORIDE 250 ML IVPB ONE (21:30)
--- NOTE | 2016-04-30 21:34 | CONS ---
Date/Time of Note Date/Time of Note DATE: 04/30/16 TIME: 21:34 Assessment/Plan Assessment/Plan Chief Complaint/Hosp Course Abdominal pain /nausea/vomiting,associated with colonic mass in the mid Ascending colon, c/w adenoca * post Colonoscopy * Large partially obstructing mass mid ascending colon, biopsied and tattooed * Moderate sized internal hemorrhoids * pathology- ADENOCA * CEA- MIN ELEVATED AT 7.5 * CT AP- NO METASTATIC DIS * post op * await path Normocytic anemia WITH N RDW * Monitor H&H every 6 hours, transfuse 2 units for hemoglobin less than 7.5 * PPI therapy * IRON STUDIES AND FERRITIN- REVIEWED * START IV IRON HYPOKALEMIA REPLACE MONITOR INCREASED TOTAL PROTEIN RECHECK MONITOR Obesity Problems: Consultation Date/Type/Reason Admit Date/Time Apr 24, 2016 at 10:36 Initial Consult Date 04/25/16 Type of Consultation: HEMEON Referring Provider: MICHAEL FUCHS 24 HR Interval Summary Free Text/Dictation post op + pain npo Exam/Review of Systems Vital Signs Vitals Vital Signs Date Time Temp Pulse Resp B/P Pulse Ox O2 Delivery O2 Flow Rate FiO2 04/30/16 07:43 98.3 83 18 92/47 91 04/29/16 20:00 Room Air Intake and Output 04/29/16 04/29/16 04/30/16 15:00 23:00 07:00 Intake Total 1200 ml 200 ml Output Total 350 ml 700 ml 350 ml Balance 850 ml -700 ml -150 ml Exam Constitutional: alert, No oriented Psych: anxiety Head: normocephalic Eyes: PERRL ENMT: No mucosa pink and moist (dry) Respiratory: diminished breath sounds Cardiovascular: regular rate and rhythm, No murmurs/extra sounds Gastrointestinal: bowel sounds, distended, soft, surgical scars, tender Extremities: No edema Neurological: lethargic, nl mental status, nl speech Results Result Diagram: 04/30/1658 04/30/16 0558 Results 24 hrs Laboratory Tests Test 04/30/16 05:58 Alanine Aminotransferase (ALT/SGPT) 30 Albumin 3.5 Albumin/Globulin Ratio 1.06 Alkaline Phosphatase 65 Anion Gap 15 # Aspartate Amino Transf (AST/SGOT) 47 H Basophils # 0.0 Basophils % 0.3 Blood Morphology Comment Blood Urea Nitrogen 12 Calcium Level 8.5 Carbon Dioxide Level 27 Chloride Level 104 Creatinine 0.66 Direct Bilirubin 0.00 Eosinophils # 0.0 Eosinophils % 0.0 Globulin 3.30 H Glucose Level 131 Hematocrit 30.0 L Hemoglobin 10.1 L Indirect Bilirubin 0.3 Lymphocytes # 0.9 Lymphocytes % 12.7 L Mean Corpuscular Hemoglobin 28.9 L Mean Corpuscular Hemoglobin Concent 33.8 Mean Corpuscular Volume 85.5 Mean Platelet Volume 8.1 Monocytes # 0.7 Monocytes % 9.7 Neutrophils # 5.6 Neutrophils % 77.3 H Nucleated Red Blood Cells # 0.0 Nucleated Red Blood Cells % 0.0 Platelet Count 224 Potassium Level 3.4 L Red Blood Count 3.51 L Red Cell Distribution Width 14.9 H Sodium Level 143 Total Bilirubin 0.3 Total Protein 6.8 White Blood Count 7.2 # Medications Medications Current Medications Ondansetron HCl (Zofran Inj) 4 mg Q6H PRN IV NAUSEA AND/OR VOMITING Last administered on 04/29/16 13:46; Admin Dose 4 MG; Start 04/22/16 at 19:00 Acetaminophen (Tylenol Tab) 650 mg Q6H PRN PO PAIN LEVEL 1-3 OR FEVER Last administered on 04/30/16 20:16; Admin Dose 650 MG; Start 04/22/16 at 19:00 Acetaminophen/ Hydrocodone Bitart ([place] (5/325)) 1 tab Q6H PRN PO MODERATE PAIN LEVEL 4-6 Last administered on 04/30/16 18:57; Admin Dose 1 TAB; Start 04/22/16 at 19:00 Morphine Sulfate (morphine) 2 mg Q4H PRN IV SEVERE PAIN LEVEL 7-10 Last administered on 04/30/16 05:12; Admin Dose 2 MG; Start 04/22/16 at 19:00 Docusate Sodium (Colace) 100 mg Q12H PRN PO CONSTIPATION; Start 04/22/16 at 19: 00 Magnesium Hydroxide (Milk Of Mag) 30 ml DAILY PRN PO CONSTIPATION; Start at 19:00 Sodium Biphosphate/ Sodium Phosphate (Fleet Enema) 133 ml DAILY PRN [place] CONSTIPATION; Start 04/22/16 at 19:00 Heparin Sodium (Porcine) (Heparin (5000 Units/0.5 ml)) 5,000 unit Q12 SC Last administered on 04/30/16 20:18; Admin Dose 5,000 UNIT; Start 04/22/16 at 21:00 Lorazepam (Ativan) 0.5 mg Q6H PRN IV ANXIETY; Start 04/22/16 at 19:00 Nitroglycerin (Nitroglycerin (Sl Tab) 0.4 Mg) 1 tab Q5M PRN SL ANGINA; Start at 19:00 Pantoprazole (Protonix Iv) 40 mg DAILY@06 IV Last administered on 04/30/16 05: 13; Admin Dose 40 MG; Start 04/23/16 at 06:00 Fenofibrate (Tricor) 48 mg DAILY PO Last administered on 04/30/16 08:32; Admin Dose 48 MG; Start 04/24/16 at 09:00 Guaifenesin 200 mg 200 mg Q4H PRN PO COUGH Last administered on 04/26/16 12:44 ; Admin Dose 200 MG; Start 04/26/16 at 12:00 Ferric Sodium Gluconate Complex 125 mg/Sodium Chloride 110 ml @ 110 mls/hr Q24H IVPB Last administered on 04/30/16 12:36; Admin Dose 110 MLS/HR; Start at 12:30; Stop 05/06/16 at 13:29 Potassium Chloride (KCl 40 MEQ/250 ML NS) 250 ml @ 62.5 mls/hr ONCE ONCE IVPB ; Start 04/30/16 at 21:30; Stop 05/01/16 at 01:29 JOSETTE GEE MD Apr 30, 2016 21:34
[2016-05-01] MEDS: HYDROCODONE/APAP (5/325) TAB PO PRN ×2 (01:40→12:59)
[2016-05-01] MEDS: morphine 2 MG INJ IV PRN (03:24)
[2016-05-01] MEDS: PANTOPRAZOLE 40 MG INJ IV SCH (05:46)
--- NOTE | 2016-05-01 07:57 | PN ---
Date/Time of Note Date/Time of Note DATE: 05/01/16 TIME: 07:56 Assessment/Plan Lines/Catheters IV Catheter Type (from [facility]): Sal[facility] [place] in Place (from [facility]): No Assessment/Plan Chief Complaint/Hosp Course 1. Right colon mass, adenocarcinoma, moderately differentiated s/p lap right colectomy, liver bx 04/29. -await path -oob/ambulate -IS -onc f/u appreciated 2. 3. BMI 27 -encourage diet optimization -encourage exercise optimization 4. Hypokalemia, corrected 5. Hypernatremia, corrected 6. Paralytic ileus -oob/ambulate -kub Thank you, Problems: Subjective 24 Hr Interval Summary s/p Lap right colectomy, liver bx 04/29. No f/c. Min nausea with vomiting ( green). No flatus/bm. Min abdominal pain. No cp/sob. No cough. No sz. No rash. No bullard/dizzy/visual or neuro changes. No dysuria. Exam/Review of Systems Vital Signs Vitals Vital Signs Date Time Temp Pulse Resp B/P Pulse Ox O2 Delivery O2 Flow Rate FiO2 05/01/16 08:27 98.9 97 19 134/80 93 04/29/16 20:00 Room Air Intake and Output 04/30/16 04/30/16 05/01/16 15:00 23:00 07:00 Intake Total 110 ml 0 ml 300 ml Output Total 300 ml Balance 110 ml 0 ml 0 ml Exam Free Text/Dictation Constitutional: alert, obese (BMI 27), oriented, No distress Psych: nl mood/affect, No anxiety, No confusion Eyes: EOMI, PERRL, nl conjunctiva, nl sclera ENMT: mucosa pink and moist, nl external ears & nose, nl lips & teeth Neck: non-tender, supple, No jvd Respiratory: normal air movement, No congested cough, No diminished breath sounds, No labored breathing Cardiovascular: regular rate and rhythm, No edema Gastrointestinal: Min tender, soft, min distended, Not firm, rebound or guarding Musculoskeletal: nl extremities to inspection, nl gait and stance, No joint tenderness Extremities: normal pulses, No calf tenderness, No edema Neurological: nl mental status, nl speech, nl strength, No confused Skin: nl turgor, No diaphoresis, No rash or lesions Lymph: nl lymph nodes, nontender Results Result Diagram: 04/30/16 0558 04/30/16 0558 NORA BLEVINS MD May 01, 2016 07:56 NORA BLEVINS MD May 01, 2016 07:56
[2016-05-01 08:27] VITALS: BP 134/80; RESP 19
[2016-05-01] MEDS: ONDANSETRON 4 MG INJ IV PRN (08:39)
[2016-05-01] MEDS: HEPARIN 5,000 UNIT/0.5 ML SYG SC SCH ×2 (08:43→21:36)
[2016-05-01] MEDS: FENOFIBRATE 48 MG TAB PO SCH (09:00)
--- NOTE | 2016-05-01 10:19 | CONS ---
Date/Time of Note Date/Time of Note DATE: 05/01/16 TIME: 10:18 Assessment/Plan Assessment/Plan Chief Complaint/Hosp Course Abdominal pain /nausea/vomiting,associated with colonic mass in the mid Ascending colon, c/w adenoca * post Colonoscopy * Large partially obstructing mass mid ascending colon, biopsied and tattooed * Moderate sized internal hemorrhoids * pathology- ADENOCA * CEA- MIN ELEVATED AT 7.5 * CT AP- NO METASTATIC DIS * PATH POST OP- P Normocytic anemia WITH N RDW * Monitor H&H every 6 hours, transfuse 2 units for hemoglobin less than 7.5 * PPI therapy * IRON STUDIES AND FERRITIN- REVIEWED * START IV IRON HYPOKALEMIA REPLACE MONITOR INCREASED TOTAL PROTEIN RECHECK MONITOR Obesity Problems: Consultation Date/Type/Reason Admit Date/Time Apr 24, 2016 at 10:36 Initial Consult Date 04/25/16 Type of Consultation: HEMEON Referring Provider: MICHAEL FUCHS 24 HR Interval Summary Free Text/Dictation post op + N/V PATH- P Exam/Review of Systems Vital Signs Vitals Vital Signs Date Time Temp Pulse Resp B/P Pulse Ox O2 Delivery O2 Flow Rate FiO2 05/01/16 08:27 98.9 97 19 134/80 93 04/29/16 20:00 Room Air Intake and Output 04/30/16 04/30/16 05/01/16 15:00 23:00 07:00 Intake Total 110 ml 0 ml 300 ml Output Total 300 ml Balance 110 ml 0 ml 0 ml Exam Constitutional: alert, obese (BMI 27), oriented, No distress Psych: nl mood/affect, No anxiety, No confusion Eyes: EOMI, PERRL, nl conjunctiva, nl sclera ENMT: mucosa pink and moist, nl external ears & nose, nl lips & teeth Neck: non-tender, supple, No jvd Respiratory: normal air movement, No congested cough, No diminished breath sounds, No labored breathing Cardiovascular: regular rate and rhythm, No edema Gastrointestinal: Min tender, soft, min distended, Not firm, rebound or guarding Musculoskeletal: nl extremities to inspection, nl gait and stance, No joint tenderness Extremities: normal pulses, No calf tenderness, No edema Neurological: nl mental status, nl speech, nl strength, No confused Skin: nl turgor, No diaphoresis, No rash or lesions Lymph: nl lymph nodes, nontender Results Result Diagram: 04/30/1658 04/30/16 0558 Medications Medications Current Medications Ondansetron HCl (Zofran Inj) 4 mg Q6H PRN IV NAUSEA AND/OR VOMITING Last administered on 05/01/16 08:39; Admin Dose 4 MG; Start 04/22/16 at 19:00 Acetaminophen (Tylenol Tab) 650 mg Q6H PRN PO PAIN LEVEL 1-3 OR FEVER Last administered on 04/30/16 20:16; Admin Dose 650 MG; Start 04/22/16 at 19:00 Acetaminophen/ Hydrocodone Bitart ([place] (5/325)) 1 tab Q6H PRN PO MODERATE PAIN LEVEL 4-6 Last administered on 05/01/16 01:40; Admin Dose 1 TAB; Start 04/22/16 at 19:00 Morphine Sulfate (morphine) 2 mg Q4H PRN IV SEVERE PAIN LEVEL 7-10 Last administered on 05/01/16 03:24; Admin Dose 2 MG; Start 04/22/16 at 19:00 Docusate Sodium (Colace) 100 mg Q12H PRN PO CONSTIPATION; Start 04/22/16 at 19: 00 Magnesium Hydroxide (Milk Of Mag) 30 ml DAILY PRN PO CONSTIPATION; Start at 19:00 Sodium Biphosphate/ Sodium Phosphate (Fleet Enema) 133 ml DAILY PRN [place] CONSTIPATION; Start 04/22/16 at 19:00 Heparin Sodium (Porcine) (Heparin (5000 Units/0.5 ml)) 5,000 unit Q12 SC Last administered on 05/01/16 08:43; Admin Dose 5,000 UNIT; Start 04/22/16 at 21:00 Lorazepam (Ativan) 0.5 mg Q6H PRN IV ANXIETY; Start 04/22/16 at 19:00 Nitroglycerin (Nitroglycerin (Sl Tab) 0.4 Mg) 1 tab Q5M PRN SL ANGINA; Start at 19:00 Pantoprazole (Protonix Iv) 40 mg DAILY@06 IV Last administered on 05/01/16 05: 46; Admin Dose 40 MG; Start 04/23/16 at 06:00 Fenofibrate (Tricor) 48 mg DAILY PO Last administered on 04/30/16 08:32; Admin Dose 48 MG; Start 04/24/16 at 09:00 Guaifenesin 200 mg 200 mg Q4H PRN PO COUGH Last administered on 04/26/16 12:44 ; Admin Dose 200 MG; Start 04/26/16 at 12:00 Ferric Sodium Gluconate Complex 125 mg/Sodium Chloride 110 ml @ 110 mls/hr Q24H IVPB Last administered on 04/30/16 12:36; Admin Dose 110 MLS/HR; Start at 12:30; Stop 05/06/16 at 13:29 Potassium Chloride/Dextrose/ Sod Cl (D5-1/2ns + KCl 20 Meq) 1,000 ml @ 80 mls/ hr [id number] IV ; Start 05/01/16 at 10:30 JOSETTE GEE MD May 01, 2016 10:19
--- NOTE | 2016-05-01 11:07 | RADRPT ---
PROCEDURE: XR Abdomen. CLINICAL INDICATION: Abdominal pain and distension. TECHNIQUE: AP abdomen x-ray. COMPARISON: CT April 22, 2016 FINDINGS: Small amount of air is identified in the right colon. Multiple air-filled, dilated loops of small b owel are identified in the left abdomen measuring up to approximately 3.9 cm in diameter. No organom egaly or abnormal calculi are observed. Degenerative changes are noted in the hips and spine. IMPRESSION: Multiple air-filled, dilated loops of small bowel in the left abdomen compatible with small bowel il eus or obstruction. If further characterization of the abdomen is needed CT is recommended. RPTAT: AA .Anders Marks MD, MD Date Time Electronically viewed and signed by .Anders Marks MD, MD on 05/01/2016 11:06 .P/
[2016-05-01] MEDS: D5W-0.45 NACL + KCL 20 MEQ 1,000 ML IV SCH ×2 (12:01→23:00)
[2016-05-01] MEDS: SOD FERRIC GLUC COMPLX 125 MG in SOD CHLORIDE 0.9% 100 ML IVPB SCH (12:06)
--- NOTE | 2016-05-01 12:44 | CONS ---
DATE OF ADMISSION: 04/24/2016 DATE OF CONSULTATION: 04/25/2016 TYPE OF CONSULTATION: Surgical. REFERRING PHYSICIAN: Dr. Alfonzo Howard CHIEF COMPLAINT: 1. Right colonic mass, probable adenocarcinoma. 2. Anemia. 3. BMI of 27. HISTORY OF PRESENT ILLNESS: Ms. Mayra Rausch is a 71-year-old female who presents with a day of abdominal pain associated with nausea and vomiting. The pain is mid abdominal, without radiation. No associated fevers or chills. No chest pain or shortness of breath. She has an occasional dry c ough. No visual or neurologic changes. No dysuria or vaginal discharge. No trauma or sick contact s. No previous history of the same. The patient has been admitted and a CT scan shows mucosal thickening of the proximal ascending colon , measuring 2.5 cm, suspicious for obstructing colon neoplasm. She underwent a colonoscopy by Dr. Ginger chavez, who identified the right colonic lesion, and biopsy was obtained. Surgical consult is obtaine d for further evaluation and treatment. She denies any weight changes. PAST MEDICAL HISTORY: 1. BMI of 27. 2. Anemia. 3. Right colon mass. 4. Abdominal pain. 5. Electrolyte abnormalities, with low potassium and low sodium. PAST SURGICAL HISTORY: 1. Lower midline . 2. Right paramedian long incision for cholecystectomy. SOCIAL HISTORY: No current alcohol, drugs or tobacco. FAMILY HISTORY: Noncontributory. REVIEW OF SYSTEMS: As per HPI. [id number] review of systems was negative, unless addressed as above . PHYSICAL EXAMINATION: VITAL SIGNS: Temperature 98.7, pulse 78, blood pressure 123/58. GENERAL: In no acute distress, overweight. HEENT: Pupils are equal and reactive. No scleral icterus. Mucous membranes are moist. NECK: Supple. No JVD. PULMONARY: Normal respiratory effort. No crepitus. No wheezing. CARDIAC: S1 and S2 present. ABDOMEN: Soft, nontender, nondistended. No rebound, no guarding, not rigid. LYMPHATICS: No palpable cervical or inguinal lymph nodes. VASCULAR: Capillary refill is less than 2 seconds. NEUROLOGIC: Alert, oriented. Moves all 4 extremities grossly. LABORATORY AND RADIOGRAPHIC: As per chart and HPI. ASSESSMENT AND PLAN: Ms. Mayra Cortez is a 71-year-old female with: 1. Right colon mass, most probably adenocarcinoma. Will schedule for laparoscopic right colectomy after medical clearance. 2. Anemia, probably secondary to above; however, currently stable. Continue close monitoring and t ransfuse as needed. 3. Body mass index of 27. The patient is highly encouraged to optimize her nutrition and exercise to improve her overall health status. 4. Hyperkalemia. Correct p.r.n. 5. Hypernatremia. Please correct with judicious fluid management. Thank you very much for consulting me in this patient's care. Dictated By: NORA SHRESTHA/LAURA Conf#: [id number] DID#: [id number]
--- NOTE | 2016-05-01 15:21 | PN ---
Date/Time of Note Date/Time of Note DATE: 05/01/16 TIME: 15:08 Assessment/Plan VTE Prophylaxis VTE Prophylaxis Intervention: heparin Lines/Catheters IV [facility] Peripheral IV Urinary Cath still in place: No Assessment/Plan Assessment/Plan 71-year-old female with no significant past medical history presenting with abdominal pain found with mucosal thickening of the proximal ascending colon measuring about 2 to 3 cm, highly suspicious for obstructing colon neoplasm. 1. Abdominal pain with findings of colonic mass and adenocarcinoma on biopsy s/p . Laparoscopic right colectomy, liver wedge resection biopsy and extensive lysis of adhesions from her previous operations 04/29/15 2. Normocytic anemia with leucopenia and lymphocytosis. No signs of any bleeding. Hemoglobin and hematocrit are stable. Monitor for now. iron deficiency: IV iron 3. Gastrointestinal prophylaxis, proton pump inhibitor. 4. Deep venous thrombosis prophylaxis, heparin subcutaneously Dispo: Continue Routine post op care / incentive spirometry / pain control / early ambulation as tolerated / Diet per surgery F/u path findings. Subjective 24 Hr Interval Summary Free Text/Dictation Patient seen and examined. spoke with surgery abd ain and vomiting this am Exam/Review of Systems Vital Signs Vitals Vital Signs Date Time Temp Pulse Resp B/P Pulse Ox O2 Delivery O2 Flow Rate FiO2 05/01/16 08:27 98.9 97 19 134/80 93 04/29/16 20:00 Room Air Intake and Output 04/30/16 04/30/16 05/01/16 15:00 23:00 07:00 Intake Total 110 ml 0 ml 300 ml Output Total 300 ml Balance 110 ml 0 ml 0 ml Exam Constitutional: alert, oriented, No distress Psych: anxiety Head: normocephalic Eyes: PERRL ENMT: mucosa pink and moist Neck: supple Respiratory: clear to auscultation Cardiovascular: regular rate and rhythm Gastrointestinal: distended, soft, surgical scars, No bowel sounds Extremities: No edema Neurological: nl mental status, nl speech Results Result Diagram: 04/30/16 0558 04/30/16 0558 Medications Medications Current Medications Ondansetron HCl (Zofran Inj) 4 mg Q6H PRN IV NAUSEA AND/OR VOMITING Last administered on 05/01/16t 08:39; Admin Dose 4 MG; Start 04/22/16 at 19:00 Acetaminophen (Tylenol Tab) 650 mg Q6H PRN PO PAIN LEVEL 1-3 OR FEVER Last administered on 04/30/16 20:16; Admin Dose 650 MG; Start 04/22/16 at 19:00 Acetaminophen/ Hydrocodone Bitart ([place] (5/325)) 1 tab Q6H PRN PO MODERATE PAIN LEVEL 4-6 Last administered on 05/01/16 12:59; Admin Dose 1 TAB; Start 04/22/16 at 19:00 Morphine Sulfate (morphine) 2 mg Q4H PRN IV SEVERE PAIN LEVEL 7-10 Last administered on 05/01/16 03:24; Admin Dose 2 MG; Start 04/22/16 at 19:00 Docusate Sodium (Colace) 100 mg Q12H PRN PO CONSTIPATION; Start 04/22/16 at 19: 00 Magnesium Hydroxide (Milk Of Mag) 30 ml DAILY PRN PO CONSTIPATION; Start at 19:00 Sodium Biphosphate/ Sodium Phosphate (Fleet Enema) 133 ml DAILY PRN [place] CONSTIPATION; Start 04/22/16 at 19:00 Heparin Sodium (Porcine) (Heparin (5000 Units/0.5 ml)) 5,000 unit Q12 SC Last administered on 05/01/16 08:43; Admin Dose 5,000 UNIT; Start 04/22/16 at 21:00 Lorazepam (Ativan) 0.5 mg Q6H PRN IV ANXIETY; Start 04/22/16 at 19:00 Nitroglycerin (Nitroglycerin (Sl Tab) 0.4 Mg) 1 tab Q5M PRN SL ANGINA; Start at 19:00 Pantoprazole (Protonix Iv) 40 mg DAILY@06 IV Last administered on 05/01/16 05: 46; Admin Dose 40 MG; Start 04/23/16 at 06:00 Fenofibrate (Tricor) 48 mg DAILY PO Last administered on 04/30/16 08:32; Admin Dose 48 MG; Start 04/24/16 at 09:00 Guaifenesin 200 mg 200 mg Q4H PRN PO COUGH Last administered on 04/26/16 12:44 ; Admin Dose 200 MG; Start 04/26/16 at 12:00 Ferric Sodium Gluconate Complex 125 mg/Sodium Chloride 110 ml @ 110 mls/hr Q24H IVPB Last administered on 05/01/16 12:06; Admin Dose 110 MLS/HR; Start at 12:30; Stop 05/06/16 at 13:29 Potassium Chloride/Dextrose/ Sod Cl (D5-1/2ns + KCl 20 Meq) 1,000 ml @ 80 mls/ hr [id number] IV Last administered on 05/01/16 12:01; Admin Dose 80 MLS/HR; Start 05/01/16 at 10:30 TRACI LOZANO May 01, 2016 15:19
[2016-05-01 20:37] VITALS: BP 122/60; RESP 18
[2016-05-02] MEDS: D5W-0.45 NACL + KCL 20 MEQ 1,000 ML IV SCH ×3 (02:53→23:55)
[2016-05-02] MEDS: HYDROCODONE/APAP (5/325) TAB PO PRN ×3 (02:56→19:00)
[2016-05-02] MEDS: PANTOPRAZOLE 40 MG INJ IV SCH (05:36)
[2016-05-02 06:33] LABS: ALBUMIN 3.7 g/dl (3.3-4.9)
[2016-05-02 06:34] LABS: POTASSIUM 4.2 mmol/L (3.5-5.1)
[2016-05-02 06:36] LABS: ALBUMIN/GLOBULIN RATIO 1.08; BILIRUBIN,INDIRECT 0.2 mg/dl (0-1.1); BILIRUBIN,TOTAL 0.2 mg/dl (0.2-1.3); CREATININE 0.72 mg/dl (0.44-1.00); TOTAL PROTEIN 7.1 g/dl (6.1-8.1)
[2016-05-02 06:37] LABS: CALCIUM 9.1 mg/dl (8.4-10.2)
[2016-05-02 06:47] LABS: BASOPHILS % 0.3 % (0.0-2.0); EOSINOPHILS % 0.1 % (0.0-7.0); HEMATOCRIT 34.8 % (37.0-47.0); HEMOGLOBIN 11.7 g/dl (12.0-16.0); LYMPHOCYTES # 1.2 10^3/ul (0.8-2.9); LYMPHOCYTES % 10.9 % (15.0-51.0); MEAN CORPUSCULAR HEMOGLOBIN 29.1 pg (29.0-33.0); MEAN CORPUSCULAR HGB CONC 33.7 g/dl (32.0-37.0); MEAN CORPUSCULAR VOLUME 86.4 fl (82.0-101.0); MEAN PLATELET VOLUME 8.4 fl (7.4-10.4); MONOCYTE # 0.8 10^3/ul (0.3-0.9); MONOCYTES % 7.1 % (0.0-11.0); NEUTROPHIL # 8.9 10^3/ul (1.6-7.5); NEUTROPHILS % 81.6 % (39.0-77.0); PLATELET COUNT 257 10^3/UL (140-440); RED BLOOD COUNT 4.03 10^6/ul (4.20-5.40); RED CELL DISTRIBUTION WIDTH 14.8 % (11.5-14.5); UNCORRECTED WBC 10.9 10^3/ul (4.8-10.8); WHITE BLOOD COUNT 10.9 10^3/ul (4.8-10.8)
[2016-05-02 07:21] LABS: CONDITION 1; LH ANALYZER COMMENTS 1
[2016-05-02 08:11] VITALS: BP 117/62; RESP 16
[2016-05-02] MEDS: FENOFIBRATE 48 MG TAB PO SCH (09:00)
[2016-05-02] MEDS: HEPARIN 5,000 UNIT/0.5 ML SYG SC SCH ×2 (10:25→20:41)
--- NOTE | 2016-05-02 11:34 | PN ---
Date/Time of Note Date/Time of Note DATE: 05/02/16 TIME: 11:31 Assessment/Plan VTE Prophylaxis VTE Prophylaxis Intervention: SCD's Lines/Catheters IV [facility]ter Type (from [facility]): Peripheral IV Urinary Cath still in place: No Assessment/Plan Assessment/Plan 71-year-old female with no significant past medical history presenting with abdominal pain found with mucosal thickening of the proximal ascending colon measuring about 2 to 3 cm, highly suspicious for obstructing colon neoplasm. 1. Abdominal pain with findings of colonic mass and adenocarcinoma on biopsy s/p . Laparoscopic right colectomy, liver wedge resection biopsy and extensive lysis of adhesions from her previous operations 04/29/15 2. Post op Functional SBO: Patient is back to NPO / ?NGT / surgery managing / defer to recs 3. Normocytic anemia with leucopenia and lymphocytosis. No signs of any bleeding. Hemoglobin and hematocrit are stable. Monitor for now. iron deficiency: IV iron per heme onc 4. Gastrointestinal prophylaxis, proton pump inhibitor. 5. Deep venous thrombosis prophylaxis, heparin subcutaneously Dispo: Continue Routine post op care / incentive spirometry / pain control / early ambulation as tolerated / Diet per surgery F/u path findings. Subjective 24 Hr Interval Summary Free Text/Dictation patient is asking for food Passing a lot of gas orally but not rectally yet Denies abd pain, still distended however Exam/Review of Systems Vital Signs Vitals Vital Signs Date Time Temp Pulse Resp B/P Pulse Ox O2 Delivery O2 Flow Rate FiO2 05/02/16 08:11 99.3 77 16 117/62 95 04/29/16 20:00 Room Air Intake and Output 05/01/16 05/01/16 05/02/16 15:00 23:00 07:00 Intake Total 110 ml 775 ml 50 ml Output Total 300 ml Balance 110 ml 775 ml -250 ml Exam Constitutional: alert, oriented, No distress Psych: anxiety Head: normocephalic Eyes: PERRL ENMT: mucosa pink and moist Neck: supple Respiratory: clear to auscultation Cardiovascular: regular rate and rhythm Gastrointestinal: distended, soft, surgical scars, No bowel sounds Extremities: No edema Neurological: nl mental status, nl speech Results Result Diagram: 05/02/16 0520 05/02/16 0520 Results 24 hrs Laboratory Tests Test 05/02/16 05:20 Alanine Aminotransferase (ALT/SGPT) 28 Albumin 3.7 Albumin/Globulin Ratio 1.08 Alkaline Phosphatase 92 Anion Gap 16 Aspartate Amino Transf (AST/SGOT) 25 Basophils # 0.0 Basophils % 0.3 Blood Morphology Comment Blood Urea Nitrogen 23 #H Calcium Level 9.1 Carbon Dioxide Level 26 Chloride Level 105 Creatinine 0.72 Direct Bilirubin 0.00 Eosinophils # 0.0 Eosinophils % 0.1 Globulin 3.40 H Glucose Level 162 Hematocrit 34.8 L Hemoglobin 11.7 L Indirect Bilirubin 0.2 Lymphocytes # 1.2 Lymphocytes % 10.9 L Mean Corpuscular Hemoglobin 29.1 Mean Corpuscular Hemoglobin Concent 33.7 Mean Corpuscular Volume 86.4 Mean Platelet Volume 8.4 Monocytes # 0.8 Monocytes % 7.1 Neutrophils # 8.9 H Neutrophils % 81.6 H Nucleated Red Blood Cells # 0.0 Nucleated Red Blood Cells % 0.0 Platelet Count 257 Potassium Level 4.2 Red Blood Count 4.03 L Red Cell Distribution Width 14.8 H Sodium Level 143 Total Bilirubin 0.2 Total Protein 7.1 White Blood Count 10.9 #H Medications Medications Current Medications Ondansetron HCl (Zofran Inj) 4 mg Q6H PRN IV NAUSEA AND/OR VOMITING Last administered on 05/01/16 08:39; Admin Dose 4 MG; Start 04/22/16 at 19:00 Acetaminophen (Tylenol Tab) 650 mg Q6H PRN PO PAIN LEVEL 1-3 OR FEVER Last administered on 04/30/16 20:16; Admin Dose 650 MG; Start 04/22/16 at 19:00 Acetaminophen/ Hydrocodone Bitart ([place] (5/325)) 1 tab Q6H PRN PO MODERATE PAIN LEVEL 4-6 Last administered on 05/02/16 10:31; Admin Dose 1 TAB; Start 04/22/16 at 19:00 Morphine Sulfate (morphine) 2 mg Q4H PRN IV SEVERE PAIN LEVEL 7-10 Last administered on 05/01/16 03:24; Admin Dose 2 MG; Start 04/22/16 at 19:00 Docusate Sodium (Colace) 100 mg Q12H PRN PO CONSTIPATION; Start 04/22/16 at 19: 00 Magnesium Hydroxide (Milk Of Mag) 30 ml DAILY PRN PO CONSTIPATION; Start at 19:00 Sodium Biphosphate/ Sodium Phosphate (Fleet Enema) 133 ml DAILY PRN [place] CONSTIPATION; Start 04/22/16 at 19:00 Heparin Sodium (Porcine) (Heparin (5000 Units/0.5 ml)) 5,000 unit Q12 SC Last administered on 05/02/16 10:25; Admin Dose 5,000 UNIT; Start 04/22/16 at 21:00 Lorazepam (Ativan) 0.5 mg Q6H PRN IV ANXIETY; Start 04/22/16 at 19:00 Nitroglycerin (Nitroglycerin (Sl Tab) 0.4 Mg) 1 tab Q5M PRN SL ANGINA; Start at 19:00 Pantoprazole (Protonix Iv) 40 mg DAILY@06 IV Last administered on 05/02/16 05: 36; Admin Dose 40 MG; Start 04/23/16 at 06:00 Fenofibrate (Tricor) 48 mg DAILY PO Last administered on 04/30/16 08:32; Admin Dose 48 MG; Start 04/24/16 at 09:00 Guaifenesin 200 mg 200 mg Q4H PRN PO COUGH Last administered on 04/26/16 12:44 ; Admin Dose 200 MG; Start 04/26/16 at 12:00 Ferric Sodium Gluconate Complex 125 mg/Sodium Chloride 110 ml @ 110 mls/hr Q24H IVPB Last administered on 05/01/16 12:06; Admin Dose 110 MLS/HR; Start at 12:30; Stop 05/06/16 at 13:29 Potassium Chloride/Dextrose/ Sod Cl (D5-1/2ns + KCl 20 Meq) 1,000 ml @ 80 mls/ hr [id number] IV Last administered on 05/02/16 02:53; Admin Dose 80 MLS/HR; Start 05/01/16 at 10:30 Procedures Procedures PROCEDURE: XR Abdomen. CLINICAL INDICATION: Abdominal pain and distension. TECHNIQUE: AP abdomen x-ray. COMPARISON: CT April 22, 2016 FINDINGS: Small amount of air is identified in the right colon. Multiple air-filled, dilated loops of small bowel are identified in the left abdomen measuring up to approximately 3.9 cm in diameter. No organomegaly or abnormal calculi are observed. Degenerative changes are noted in the hips and spine. IMPRESSION: Multiple air-filled, dilated loops of small bowel in the left abdomen compatible with small bowel ileus or obstruction. If further characterization of the abdomen is needed CT is recommended. RPTAT: AA .Anders Marks MD, Date Time Electronically viewed and signed by .Anders Marks MD, on 05/01/2016 11:06 TRACI LOZANO May 02, 2016 11:34
[2016-05-02] MEDS: METOCLOPRAMIDE 10 MG INJ IV SCH ×3 (12:17→23:22)
[2016-05-02] MEDS: SOD FERRIC GLUC COMPLX 125 MG in SOD CHLORIDE 0.9% 100 ML IVPB SCH (12:18)
--- NOTE | 2016-05-02 12:40 | PN ---
Date/Time of Note Date/Time of Note DATE: 05/02/16 TIME: 12:38 Assessment/Plan Lines/Catheters IV Catheter Type (from [facility]): Peripheral IV Coronel in Place (from [facility]): No Assessment/Plan Chief Complaint/Hosp Course 1. Right colon mass, adenocarcinoma, moderately differentiated s/p lap right colectomy, liver bx 04/29. -await path -oob/ambulate -IS -onc f/u appreciated 2. 3. BMI 27 -encourage diet optimization -encourage exercise optimization 4. Hypokalemia, corrected 5. Hypernatremia, corrected 6. Paralytic ileus -oob/ambulate -kub Thank you, Problems: Subjective 24 Hr Interval Summary No f/c. Min nausea with vomiting (green). No flatus/bm. Min abdominal pain. No cp/sob. No cough. No sz. No rash. No bullard/dizzy/visual or neuro changes. No dysuria. Exam/Review of Systems Vital Signs Vitals Vital Signs Date Time Temp Pulse Resp B/P Pulse Ox O2 Delivery O2 Flow Rate FiO2 05/02/16 08:11 99.3 77 16 117/62 95 04/29/16 20:00 Room Air Intake and Output 05/01/16 05/01/16 05/02/16 14:59 22:59 06:59 Intake Total 110 ml 775 ml 50 ml Output Total 300 ml Balance 110 ml 775 ml -250 ml Exam Free Text/Dictation Constitutional: alert, obese (BMI 27), oriented, No distress Psych: nl mood/affect, No anxiety, No confusion Eyes: EOMI, PERRL, nl conjunctiva, nl sclera ENMT: mucosa pink and moist, nl external ears & nose, nl lips & teeth Neck: non-tender, supple, No jvd Respiratory: normal air movement, No congested cough, No diminished breath sounds, No labored breathing Cardiovascular: regular rate and rhythm, No edema Gastrointestinal: Min tender, soft, min distended, Not firm, rebound or guarding Musculoskeletal: nl extremities to inspection, nl gait and stance, No joint tenderness Extremities: normal pulses, No calf tenderness, No edema Neurological: nl mental status, nl speech, nl strength, No confused Skin: nl turgor, No diaphoresis, No rash or lesions Lymph: nl lymph nodes, nontender Results Result Diagram: 05/02/16 0520 05/02/16 0520 NORA BLEVINS MD May 02, 2016 12:39
--- NOTE | 2016-05-02 18:04 | CONS ---
Date/Time of Note Date/Time of Note DATE: 05/02/16 TIME: 18:03 Assessment/Plan Assessment/Plan Chief Complaint/Hosp Course Abdominal pain /nausea/vomiting,associated with colonic mass in the mid Ascending colon, c/w adenoca * post Colonoscopy * Large partially obstructing mass mid ascending colon, biopsied and tattooed * Moderate sized internal hemorrhoids * pathology- ADENOCA * CEA- MIN ELEVATED AT 7.5 * CT AP- NO METASTATIC DIS * POST OP * AWAIT PATH Normocytic anemia WITH N RDW * Monitor H&H every 6 hours, transfuse 2 units for hemoglobin less than 7.5 * PPI therapy * IRON STUDIES AND FERRITIN- REVIEWED * CONT IV IRON HYPOKALEMIA REPLACE MONITOR INCREASED TOTAL PROTEIN RECHECK MONITOR Obesity Problems: Consultation Date/Type/Reason Admit Date/Time Apr 24, 2016 at 10:36 Initial Consult Date 04/25/16 Type of Consultation: HEMEON Referring Provider: MICHAEL FUCHS 24 HR Interval Summary Free Text/Dictation ALL NOTED FELLING BETTER PATH- P Exam/Review of Systems Vital Signs Vitals Vital Signs Date Time Temp Pulse Resp B/P Pulse Ox O2 Delivery O2 Flow Rate FiO2 05/02/16 08:11 99.3 77 16 117/62 95 04/29/16 20:00 Room Air Intake and Output 05/01/16 05/01/16 05/02/16 15:00 23:00 07:00 Intake Total 110 ml 775 ml 50 ml Output Total 300 ml Balance 110 ml 775 ml -250 ml Exam Constitutional: alert, oriented, No distress Psych: anxiety Head: normocephalic Eyes: PERRL ENMT: mucosa pink and moist Neck: supple Respiratory: clear to auscultation Cardiovascular: regular rate and rhythm Gastrointestinal: distended, soft, surgical scars, No bowel sounds Extremities: No edema Neurological: nl mental status, nl speech Results Result Diagram: 05/02/16 0520 05/02/16 0520 Results 24 hrs Laboratory Tests Test 05/02/16 05:20 Alanine Aminotransferase (ALT/SGPT) 28 Albumin 3.7 Albumin/Globulin Ratio 1.08 Alkaline Phosphatase 92 Anion Gap 16 Aspartate Amino Transf (AST/SGOT) 25 Basophils # 0.0 Basophils % 0.3 Blood Morphology Comment Blood Urea Nitrogen 23 #H Calcium Level 9.1 Carbon Dioxide Level 26 Chloride Level 105 Creatinine 0.72 Direct Bilirubin 0.00 Eosinophils # 0.0 Eosinophils % 0.1 Globulin 3.40 H Glucose Level 162 Hematocrit 34.8 L Hemoglobin 11.7 L Indirect Bilirubin 0.2 Lymphocytes # 1.2 Lymphocytes % 10.9 L Mean Corpuscular Hemoglobin 29.1 Mean Corpuscular Hemoglobin Concent 33.7 Mean Corpuscular Volume 86.4 Mean Platelet Volume 8.4 Monocytes # 0.8 Monocytes % 7.1 Neutrophils # 8.9 H Neutrophils % 81.6 H Nucleated Red Blood Cells # 0.0 Nucleated Red Blood Cells % 0.0 Platelet Count 257 Potassium Level 4.2 Red Blood Count 4.03 L Red Cell Distribution Width 14.8 H Sodium Level 143 Total Bilirubin 0.2 Total Protein 7.1 White Blood Count 10.9 #H Medications Medications Current Medications Ondansetron HCl (Zofran Inj) 4 mg Q6H PRN IV NAUSEA AND/OR VOMITING Last administered on 05/01/16 08:39; Admin Dose 4 MG; Start 04/22/16 at 19:00 Acetaminophen (Tylenol Tab) 650 mg Q6H PRN PO PAIN LEVEL 1-3 OR FEVER Last administered on 04/30/16 20:16; Admin Dose 650 MG; Start 04/22/16 at 19:00 Acetaminophen/ Hydrocodone Bitart ([place] (5/325)) 1 tab Q6H PRN PO MODERATE PAIN LEVEL 4-6 Last administered on 05/02/16 10:31; Admin Dose 1 TAB; Start 04/22/16 at 19:00 Morphine Sulfate (morphine) 2 mg Q4H PRN IV SEVERE PAIN LEVEL 7-10 Last administered on 05/01/16 03:24; Admin Dose 2 MG; Start 04/22/16 at 19:00 Docusate Sodium (Colace) 100 mg Q12H PRN PO CONSTIPATION; Start 04/22/16 at 19: 00 Magnesium Hydroxide (Milk Of Mag) 30 ml DAILY PRN PO CONSTIPATION; Start at 19:00 Sodium Biphosphate/ Sodium Phosphate (Fleet Enema) 133 ml DAILY PRN [place] CONSTIPATION; Start 04/22/16 at 19:00 Heparin Sodium (Porcine) (Heparin (5000 Units/0.5 ml)) 5,000 unit Q12 SC Last administered on 05/02/16 10:25; Admin Dose 5,000 UNIT; Start 04/22/16 at 21:00 Lorazepam (Ativan) 0.5 mg Q6H PRN IV ANXIETY; Start 04/22/16 at 19:00 Nitroglycerin (Nitroglycerin (Sl Tab) 0.4 Mg) 1 tab Q5M PRN SL ANGINA; Start at 19:00 Pantoprazole (Protonix Iv) 40 mg DAILY@06 IV Last administered on 05/02/16 05: 36; Admin Dose 40 MG; Start 04/23/16 at 06:00 Fenofibrate (Tricor) 48 mg DAILY PO Last administered on 04/30/16 08:32; Admin Dose 48 MG; Start 04/24/16 at 09:00 Guaifenesin 200 mg 200 mg Q4H PRN PO COUGH Last administered on 04/26/16 12:44 ; Admin Dose 200 MG; Start 04/26/16 at 12:00 Ferric Sodium Gluconate Complex 125 mg/Sodium Chloride 110 ml @ 110 mls/hr Q24H IVPB Last administered on 05/02/16 12:18; Admin Dose 110 MLS/HR; Start at 12:30; Stop 05/06/16 at 13:29 Potassium Chloride/Dextrose/ Sod Cl (D5-1/2ns + KCl 20 Meq) 1,000 ml @ 80 mls/ hr [id number] IV Last administered on 05/02/16 12:18; Admin Dose 80 MLS/HR; Start 05/01/16 at 10:30 Metoclopramide HCl (Reglan) 5 mg Q6 IV Last administered on 05/02/16 17:25; Admin Dose 5 MG; Start 05/02/16 at 12:00 JOSETTE GEE MD May 02, 2016 18:04
[2016-05-02 21:03] VITALS: BP 123/59; RESP 18
[2016-05-03] MEDS: D5W-0.45 NACL + KCL 20 MEQ 1,000 ML IV SCH ×2 (03:33→20:07)
[2016-05-03] MEDS: METOCLOPRAMIDE 10 MG INJ IV SCH ×4 (05:30→23:42)
[2016-05-03] MEDS: PANTOPRAZOLE 40 MG INJ IV SCH (05:30)
[2016-05-03 07:52] VITALS: BP 118/57; RESP 22
[2016-05-03] MEDS: FENOFIBRATE 48 MG TAB PO SCH (09:00)
[2016-05-03] MEDS: HEPARIN 5,000 UNIT/0.5 ML SYG SC SCH ×2 (09:11→20:09)
--- NOTE | 2016-05-03 11:37 | PN ---
Date/Time of Note Date/Time of Note DATE: 05/03/16 TIME: 11:32 Assessment/Plan VTE Prophylaxis VTE Prophylaxis Intervention: heparin Lines/Catheters IV Catheter Type (from [facility]): Peripheral IV Urinary Cath still in place: No Assessment/Plan Assessment/Plan 71-year-old female with no significant past medical history presenting with abdominal pain found with mucosal thickening of the proximal ascending colon measuring about 2 to 3 cm, highly suspicious for obstructing colon neoplasm. 1. Abdominal pain with findings of colonic mass and adenocarcinoma on biopsy s/p . Laparoscopic right colectomy, liver wedge resection biopsy and extensive lysis of adhesions from her previous operations 04/29/15 2. Post op Functional SBO: Patient is back to NPO / patient has had BM post op / defer resumption of diet to surgery 3. Normocytic anemia with leucopenia and lymphocytosis. No signs of any bleeding. Hemoglobin and hematocrit are stable. Monitor for now. iron deficiency: IV iron per heme onc 4. Gastrointestinal prophylaxis, proton pump inhibitor. 5. Deep venous thrombosis prophylaxis, heparin subcutaneously Dispo: Continue Routine post op care / incentive spirometry / pain control / early ambulation as tolerated / Diet per surgery F/u path findings. Subjective 24 Hr Interval Summary Free Text/Dictation Patient seen and examined. States she just had a BM Exam/Review of Systems Vital Signs Vitals Vital Signs Date Time Temp Pulse Resp B/P Pulse Ox O2 Delivery O2 Flow Rate FiO2 05/03/16 07:52 98.6 83 22 118/57 95 04/29/16 20:00 Room Air Intake and Output 05/02/16 05/02/16 05/03/16 15:00 23:00 07:00 Intake Total 830 ml 350 ml 700 ml Output Total 550 ml Balance 830 ml -200 ml 700 ml Exam Constitutional: alert, oriented, No distress Psych: anxiety Head: normocephalic Eyes: PERRL ENMT: mucosa pink and moist Neck: supple Respiratory: clear to auscultation Cardiovascular: regular rate and rhythm Gastrointestinal: distended, soft, surgical scars, No bowel sounds Extremities: No edema Neurological: nl mental status, nl speech Results Result Diagram: 05/02/16 0520 05/02/16 0520 Medications Medications Current Medications Ondansetron HCl (Zofran Inj) 4 mg Q6H PRN IV NAUSEA AND/OR VOMITING Last administered on 05/01/16 08:39; Admin Dose 4 MG; Start 04/22/16 at 19:00 Acetaminophen (Tylenol Tab) 650 mg Q6H PRN PO PAIN LEVEL 1-3 OR FEVER Last administered on 04/30/16 20:16; Admin Dose 650 MG; Start 04/22/16 at 19:00 Acetaminophen/ Hydrocodone Bitart ([place] (5/325)) 1 tab Q6H PRN PO MODERATE PAIN LEVEL 4-6 Last administered on 05/02/16 19:00; Admin Dose 1 TAB; Start 04/22/16 at 19:00 Morphine Sulfate (morphine) 2 mg Q4H PRN IV SEVERE PAIN LEVEL 7-10 Last administered on 05/01/16 03:24; Admin Dose 2 MG; Start 04/22/16 at 19:00 Docusate Sodium (Colace) 100 mg Q12H PRN PO CONSTIPATION; Start 04/22/16 at 19: 00 Magnesium Hydroxide (Milk Of Mag) 30 ml DAILY PRN PO CONSTIPATION; Start at 19:00 Sodium Biphosphate/ Sodium Phosphate (Fleet Enema) 133 ml DAILY PRN [place] CONSTIPATION; Start 04/22/16 at 19:00 Heparin Sodium (Porcine) (Heparin (5000 Units/0.5 ml)) 5,000 unit Q12 SC Last administered on 05/03/16 09:11; Admin Dose 5,000 UNIT; Start 04/22/16 at 21:00 Lorazepam (Ativan) 0.5 mg Q6H PRN IV ANXIETY; Start 04/22/16 at 19:00 Nitroglycerin (Nitroglycerin (Sl Tab) 0.4 Mg) 1 tab Q5M PRN SL ANGINA; Start at 19:00 Pantoprazole (Protonix Iv) 40 mg DAILY@06 IV Last administered on 05/03/16 05: 30; Admin Dose 40 MG; Start 04/23/16 at 06:00 Fenofibrate (Tricor) 48 mg DAILY PO Last administered on 04/30/16 08:32; Admin Dose 48 MG; Start 04/24/16 at 09:00 Guaifenesin 200 mg 200 mg Q4H PRN PO COUGH Last administered on 04/26/16 12:44 ; Admin Dose 200 MG; Start 04/26/16 at 12:00 Ferric Sodium Gluconate Complex 125 mg/Sodium Chloride 110 ml @ 110 mls/hr Q24H IVPB Last administered on 05/02/16 12:18; Admin Dose 110 MLS/HR; Start at 12:30; Stop 05/06/16 at 13:29 Potassium Chloride/Dextrose/ Sod Cl (D5-1/2ns + KCl 20 Meq) 1,000 ml @ 80 mls/ hr [id number] IV Last administered on 05/03/16 03:33; Admin Dose 80 MLS/HR; Start 05/01/16 at 10:30 Metoclopramide HCl (Reglan) 5 mg Q6 IV Last administered on 05/03/16 05:30; Admin Dose 5 MG; Start 05/02/16 at 12:00 TRACI LOZANO May 03, 2016 11:37
[2016-05-03] MEDS: SOD FERRIC GLUC COMPLX 125 MG in SOD CHLORIDE 0.9% 100 ML IVPB SCH (12:25)
--- NOTE | 2016-05-03 13:39 | CONS ---
Date/Time of Note Date/Time of Note DATE: 05/03/16 TIME: 13:36 Assessment/Plan Assessment/Plan Chief Complaint/Hosp Course COLON CANCER Abdominal pain /nausea/vomiting,associated with colonic mass in the mid Ascending colon, c/w adenoca * post Colonoscopy * Large partially obstructing mass mid ascending colon, biopsied and tattooed * Moderate sized internal hemorrhoids * pathology- ADENOCA * CEA- MIN ELEVATED AT 7.5 * CT AP- NO METASTATIC DIS * POST surgery * AWAIT FINAL PATH Normocytic anemia WITH N RDW * Monitor H&H every 6 hours, transfuse 2 units for hemoglobin less than 7.5 * PPI therapy * IRON STUDIES AND FERRITIN- REVIEWED * CONT IV IRON HYPOKALEMIA REPLACE MONITOR INCREASED TOTAL PROTEIN NORMALIZED MONITOR Obesity Problems: Consultation Date/Type/Reason Admit Date/Time Apr 24, 2016 at 10:36 Initial Consult Date 04/25/16 Type of Consultation: HEMEONC Referring Provider: MICHAEL FUCHS 24 HR Interval Summary Free Text/Dictation IMPROVING + BM + GASES Exam/Review of Systems Vital Signs Vitals Vital Signs Date Time Temp Pulse Resp B/P Pulse Ox O2 Delivery O2 Flow Rate FiO2 05/03/16 07:52 98.6 83 22 118/57 95 04/29/16 20:00 Room Air Intake and Output 05/02/16 05/02/16 05/03/16 15:00 23:00 07:00 Intake Total 830 ml 350 ml 700 ml Output Total 550 ml Balance 830 ml -200 ml 700 ml Exam Constitutional: alert, oriented, No distress Psych: anxiety Head: normocephalic Eyes: PERRL ENMT: mucosa pink and moist Neck: supple Respiratory: clear to auscultation Cardiovascular: regular rate and rhythm Gastrointestinal: distended, soft, surgical scars, No bowel sounds Extremities: No edema Neurological: nl mental status, nl speech Results Result Diagram: 05/02/1651905/02/16519 Medications Medications Current Medications Ondansetron HCl (Zofran Inj) 4 mg Q6H PRN IV NAUSEA AND/OR VOMITING Last administered on 05/01/16 08:39; Admin Dose 4 MG; Start 04/22/16 at 19:00 Acetaminophen (Tylenol Tab) 650 mg Q6H PRN PO PAIN LEVEL 1-3 OR FEVER Last administered on 04/30/16 20:16; Admin Dose 650 MG; Start 04/22/16 at 19:00 Acetaminophen/ Hydrocodone Bitart ([place] (5/325)) 1 tab Q6H PRN PO MODERATE PAIN LEVEL 4-6 Last administered on 05/02/16 19:00; Admin Dose 1 TAB; Start 04/22/16 at 19:00 Morphine Sulfate (morphine) 2 mg Q4H PRN IV SEVERE PAIN LEVEL 7-10 Last administered on 05/01/16 03:24; Admin Dose 2 MG; Start 04/22/16 at 19:00 Docusate Sodium (Colace) 100 mg Q12H PRN PO CONSTIPATION; Start 04/22/16 at 19: 00 Magnesium Hydroxide (Milk Of Mag) 30 ml DAILY PRN PO CONSTIPATION; Start at 19:00 Sodium Biphosphate/ Sodium Phosphate (Fleet Enema) 133 ml DAILY PRN [place] CONSTIPATION; Start 04/22/16 at 19:00 Heparin Sodium (Porcine) (Heparin (5000 Units/0.5 ml)) 5,000 unit Q12 SC Last administered on 05/03/16 09:11; Admin Dose 5,000 UNIT; Start 04/22/16 at 21:00 Lorazepam (Ativan) 0.5 mg Q6H PRN IV ANXIETY; Start 04/22/16 at 19:00 Nitroglycerin (Nitroglycerin (Sl Tab) 0.4 Mg) 1 tab Q5M PRN SL ANGINA; Start at 19:00 Pantoprazole (Protonix Iv) 40 mg DAILY@06 IV Last administered on 05/03/16 05: 30; Admin Dose 40 MG; Start 04/23/16 at 06:00 Fenofibrate (Tricor) 48 mg DAILY PO Last administered on 04/30/16 08:32; Admin Dose 48 MG; Start 04/24/16 at 09:00 Guaifenesin 200 mg 200 mg Q4H PRN PO COUGH Last administered on 04/26/16 12:44 ; Admin Dose 200 MG; Start 04/26/16 at 12:00 Ferric Sodium Gluconate Complex 125 mg/Sodium Chloride 110 ml @ 110 mls/hr Q24H IVPB Last administered on 05/03/16 12:25; Admin Dose 110 MLS/HR; Start at 12:30; Stop 05/06/16 at 13:29 Potassium Chloride/Dextrose/ Sod Cl (D5-1/2ns + KCl 20 Meq) 1,000 ml @ 80 mls/ hr [id number] IV Last administered on 05/03/16 03:33; Admin Dose 80 MLS/HR; Start 05/01/16 at 10:30 Metoclopramide HCl (Reglan) 5 mg Q6 IV Last administered on 05/03/16 12:26; Admin Dose 5 MG; Start 05/02/16 at 12:00 JOSETTE GEE MD May 03, 2016 13:38
[2016-05-03] MEDS: ONDANSETRON 4 MG INJ IV PRN (16:31)
[2016-05-03] MEDS: morphine 2 MG INJ IV PRN (16:31)
[2016-05-03 19:45] VITALS: BP 128/73; RESP 19
--- NOTE | 2016-05-03 23:28 | PN ---
Date/Time of Note Date/Time of Note DATE: 05/03/16 TIME: 23:24 Assessment/Plan Lines/Catheters IV Catheter Type (from [facility]): Peripheral IV Coronel in Place (from [facility]): No Assessment/Plan Chief Complaint/Hosp Course 1. Right colon mass, adenocarcinoma, moderately differentiated s/p lap right colectomy, liver bx 04/29. -await path -oob/ambulate -IS -onc f/u appreciated 2. Paralytic ileus, improving -oob/ambulate -kub 3. BMI 27 -encourage diet optimization -encourage exercise optimization 4. Hypokalemia, corrected 5. Hypernatremia, corrected Thank you, Problems: Subjective 24 Hr Interval Summary Flatus and bm. Refused NGT. No f/c. N/V improved. Min abdominal pain. No cp /sob. No cough. No sz. No rash. No bullard/dizzy/visual or neuro changes. No dysuria. Exam/Review of Systems Vital Signs Vitals Vital Signs Date Time Temp Pulse Resp B/P Pulse Ox O2 Delivery O2 Flow Rate FiO2 05/03/16 19:45 99.0 94 19 128/73 96 04/29/16 20:00 Room Air Intake and Output 05/02/16 05/02/16 05/03/16 15:00 23:00 07:00 Intake Total 830 ml 350 ml 700 ml Output Total 550 ml Balance 830 ml -200 ml 700 ml Exam Free Text/Dictation Constitutional: alert, obese (BMI 27), oriented, No distress Psych: nl mood/affect, No anxiety, No confusion Eyes: EOMI, PERRL, nl conjunctiva, nl sclera ENMT: mucosa pink and moist, nl external ears & nose, nl lips & teeth Neck: non-tender, supple, No jvd Respiratory: normal air movement, No congested cough, No diminished breath sounds, No labored breathing Cardiovascular: regular rate and rhythm, No edema Gastrointestinal: Min tender, soft, min distended, Not firm, rebound or guarding Musculoskeletal: nl extremities to inspection, nl gait and stance, No joint tenderness Extremities: normal pulses, No calf tenderness, No edema Neurological: nl mental status, nl speech, nl strength, No confused Skin: nl turgor, No diaphoresis, No rash or lesions Lymph: nl lymph nodes, nontender Results Result Diagram: 05/02/16 0520 05/02/16 0520 NORA BLEVINS MD May 03, 2016 23:28
[2016-05-04] MEDS: METOCLOPRAMIDE 10 MG INJ IV SCH ×4 (05:07→23:38)
[2016-05-04] MEDS: PANTOPRAZOLE 40 MG INJ IV SCH (05:07)
[2016-05-04 05:12] LABS: BASOPHIL # 0.1 10^3/ul (0.0-0.1); BASOPHILS % 1.3 % (0.0-2.0); EOSINOPHILS % 0.6 % (0.0-7.0); HEMATOCRIT 34.4 % (37.0-47.0); HEMOGLOBIN 11.5 g/dl (12.0-16.0); MEAN CORPUSCULAR HEMOGLOBIN 29.3 pg (29.0-33.0); MEAN CORPUSCULAR HGB CONC 33.5 g/dl (32.0-37.0); MEAN CORPUSCULAR VOLUME 87.3 fl (82.0-101.0); MEAN PLATELET VOLUME 7.5 fl (7.4-10.4); MONOCYTE # 0.5 10^3/ul (0.3-0.9); MONOCYTES % 11.4 % (0.0-11.0); NEUTROPHIL # 2.8 10^3/ul (1.6-7.5); NEUTROPHILS % 63.7 % (39.0-77.0); PLATELET COUNT 287 10^3/UL (140-440); RED BLOOD COUNT 3.94 10^6/ul (4.20-5.40); RED CELL DISTRIBUTION WIDTH 15.2 % (11.5-14.5); UNCORRECTED WBC 4.4 10^3/ul (4.8-10.8); WHITE BLOOD COUNT 4.4 10^3/ul (4.8-10.8)
[2016-05-04 05:17] LABS: CONDITION 1; LH ANALYZER COMMENTS 1
[2016-05-04 05:34] LABS: POTASSIUM 3.9 mmol/L (3.5-5.1)
[2016-05-04 05:36] LABS: CREATININE 0.62 mg/dl (0.44-1.00)
[2016-05-04 05:37] LABS: CALCIUM 8.6 mg/dl (8.4-10.2)
[2016-05-04 07:42] VITALS: BP 138/71; RESP 18
[2016-05-04] MEDS: D5W-0.45 NACL + KCL 20 MEQ 1,000 ML IV SCH (08:53)
[2016-05-04] MEDS: HEPARIN 5,000 UNIT/0.5 ML SYG SC SCH ×2 (08:55→20:39)
[2016-05-04] MEDS: FENOFIBRATE 48 MG TAB PO SCH (08:59)
[2016-05-04] MEDS: ONDANSETRON 4 MG INJ IV PRN ×2 (09:08→23:34)
--- NOTE | 2016-05-04 09:51 | RADRPT ---
PROCEDURE: XR Abdomen. CLINICAL INDICATION: Abdomen pain. TECHNIQUE: AP supine abdomen x-ray. COMPARISON: 05/01/2016. FINDINGS: There is gaseous distension of the stomach, worse than seen previously. Gaseous distension of small bowel is slightly improved. Only minimal gas is present in the colon and rectum. There are no abnormal calcifications overlying the urinary tracts. There are mild degenerative changes of the spine. IMPRESSION: 1. Gaseous distension of the stomach, worse than seen previously. 2. Improved small bowel obstruction or ileus. 3. Mild degenerative changes of the spine. RPTAT: QQ .Guerrero Hallman MD, MD Date Time Electronically viewed and signed by .Guerrero Hallman MD, on 05/04/2016 09:51 .R/
[2016-05-04] MEDS: SOD FERRIC GLUC COMPLX 125 MG in SOD CHLORIDE 0.9% 100 ML IVPB SCH (12:48)
--- NOTE | 2016-05-04 13:31 | CONS ---
Date/Time of Note Date/Time of Note DATE: 05/04/16 TIME: 13:29 Assessment/Plan Assessment/Plan Chief Complaint/Hosp Course Abdominal pain /nausea/vomiting,associated with colonic mass in the mid Ascending colon, c/w adenoca * post Colonoscopy * Large partially obstructing mass mid ascending colon, biopsied and tattooed * Moderate sized internal hemorrhoids * pathology- ADENOCA * CEA- MIN ELEVATED AT 7.5 * CT AP- NO METASTATIC DIS * POST OP * AWAIT PATH * F-UP OUTPT Normocytic anemia WITH N RDW * Monitor H&H every 6 hours, transfuse 2 units for hemoglobin less than 7.5 * PPI therapy * IRON STUDIES AND FERRITIN- REVIEWED * CONT IV IRON HYPOKALEMIA REPLACE MONITOR INCREASED TOTAL PROTEIN RECHECK MONITOR Obesity Problems: Consultation Date/Type/Reason Admit Date/Time Apr 24, 2016 at 10:36 Initial Consult Date 04/25/16 Type of Consultation: HEMEON Referring Provider: MICHAEL FUCHS 24 HR Interval Summary Free Text/Dictation ALL NOTED FELLING BETTER NO NEW EVENTS PATH- P Exam/Review of Systems Vital Signs Vitals Vital Signs Date Time Temp Pulse Resp B/P Pulse Ox O2 Delivery O2 Flow Rate FiO2 05/04/16 07:42 98.9 88 18 138/71 96 Intake and Output 05/03/16 05/03/16 05/04/16 14:59 22:59 06:59 Intake Total 110 ml 1000 ml 0 ml Output Total 550 ml 500 ml Balance 110 ml 450 ml -500 ml Exam Constitutional: alert, oriented, No distress Psych: anxiety Head: normocephalic Eyes: PERRL ENMT: mucosa pink and moist Neck: supple Respiratory: clear to auscultation Cardiovascular: regular rate and rhythm Gastrointestinal: distended, soft, surgical scars, No bowel sounds Extremities: No edema Neurological: nl mental status, nl speech Results Result Diagram: 05/04/16 0430 05/04/16 0430 Results 24 hrs Laboratory Tests Test 05/04/16 04:30 Anion Gap 15 Basophils # 0.1 Basophils % 1.3 Blood Morphology Comment Blood Urea Nitrogen 18 Calcium Level 8.6 Carbon Dioxide Level 26 Chloride Level 105 Creatinine 0.62 Eosinophils # 0.0 Eosinophils % 0.6 Glucose Level 136 Hematocrit 34.4 L Hemoglobin 11.5 L Lymphocytes # 1.0 Lymphocytes % 23.0 Mean Corpuscular Hemoglobin 29.3 Mean Corpuscular Hemoglobin Concent 33.5 Mean Corpuscular Volume 87.3 Mean Platelet Volume 7.5 Monocytes # 0.5 Monocytes % 11.4 H Neutrophils # 2.8 Neutrophils % 63.7 Nucleated Red Blood Cells # 0.0 Nucleated Red Blood Cells % 0.0 Platelet Count 287 Potassium Level 3.9 Red Blood Count 3.94 L Red Cell Distribution Width 15.2 H Sodium Level 142 White Blood Count 4.4 #L Medications Medications Current Medications Ondansetron HCl (Zofran Inj) 4 mg Q6H PRN IV NAUSEA AND/OR VOMITING Last administered on 05/04/16 09:08; Admin Dose 4 MG; Start 04/22/16 at 19:00 Acetaminophen (Tylenol Tab) 650 mg Q6H PRN PO PAIN LEVEL 1-3 OR FEVER Last administered on 04/30/16 20:16; Admin Dose 650 MG; Start 04/22/16 at 19:00 Acetaminophen/ Hydrocodone Bitart ([place] (5/325)) 1 tab Q6H PRN PO MODERATE PAIN LEVEL 4-6 Last administered on 05/02/16 19:00; Admin Dose 1 TAB; Start 04/22/16 at 19:00 Morphine Sulfate (morphine) 2 mg Q4H PRN IV SEVERE PAIN LEVEL 7-10 Last administered on 05/03/16 16:31; Admin Dose 2 MG; Start 04/22/16 at 19:00 Docusate Sodium (Colace) 100 mg Q12H PRN PO CONSTIPATION; Start 04/22/16 at 19: 00 Magnesium Hydroxide (Milk Of Mag) 30 ml DAILY PRN PO CONSTIPATION; Start at 19:00 Sodium Biphosphate/ Sodium Phosphate (Fleet Enema) 133 ml DAILY PRN NV CONSTIPATION; Start 04/22/16 at 19:00 Heparin Sodium (Porcine) (Heparin (5000 Units/0.5 ml)) 5,000 unit Q12 SC Last administered on 05/04/16 08:55; Admin Dose 5,000 UNIT; Start 04/22/16 at 21:00 Lorazepam (Ativan) 0.5 mg Q6H PRN IV ANXIETY; Start 04/22/16 at 19:00 Nitroglycerin (Nitroglycerin (Sl Tab) 0.4 Mg) 1 tab Q5M PRN SL ANGINA; Start at 19:00 Pantoprazole (Protonix Iv) 40 mg DAILY@06 IV Last administered on 05/04/16 05: 07; Admin Dose 40 MG; Start 04/23/16 at 06:00 Fenofibrate (Tricor) 48 mg DAILY PO Last administered on 04/30/16 08:32; Admin Dose 48 MG; Start 04/24/16 at 09:00 Guaifenesin 200 mg 200 mg Q4H PRN PO COUGH Last administered on 04/26/16 12:44 ; Admin Dose 200 MG; Start 04/26/16 at 12:00 Ferric Sodium Gluconate Complex 125 mg/Sodium Chloride 110 ml @ 110 mls/hr Q24H IVPB Last administered on 05/04/16 12:48; Admin Dose 110 MLS/HR; Start at 12:30; Stop 05/06/16 at 13:29 Potassium Chloride/Dextrose/ Sod Cl (D5-1/2ns + KCl 20 Meq) 1,000 ml @ 80 mls/ hr [id number] IV Last administered on 05/04/16 08:53; Admin Dose 80 MLS/HR; Start 05/01/16 at 10:30 Metoclopramide HCl (Reglan) 5 mg Q6 IV Last administered on 05/04/16 12:48; Admin Dose 5 MG; Start 05/02/16 at 12:00 JOSETTE GEE MD May 04, 2016 13:31
--- NOTE | 2016-05-04 19:42 | PN ---
Date/Time of Note Date/Time of Note DATE: 05/04/16 TIME: 19:37 Assessment/Plan Lines/Catheters IV Catheter Type (from [facility]): Peripheral IV Coronel in Place (from [facility]): No Assessment/Plan Chief Complaint/Hosp Course 1. 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 -oob/ambulate -IS -diet as tolerated -onc f/u appreciated -dc planning tomorrow 2. Paralytic ileus, resolving -oob/ambulate -diet as tolerated 3. BMI 27 -encourage diet optimization -encourage exercise optimization 4. Hepatic steatosis -diet/lifestyle optimization -outpt gi/medical follow up 5. Leukocytosis improved Thank you, Problems: Subjective 24 Hr Interval Summary Path noted. Flatus and bms on full liquid diet. No f/c. Min nausea but no vomiting. Min abdominal pain. No cp/sob. No cough. No sz. No rash. No bullard/ dizzy/visual or neuro changes. No dysuria. Exam/Review of Systems Vital Signs Vitals Vital Signs Date Time Temp Pulse Resp B/P Pulse Ox O2 Delivery O2 Flow Rate FiO2 05/04/16 07:42 98.9 88 18 138/71 96 Intake and Output 05/03/16 05/03/16 05/04/16 15:00 23:00 07:00 Intake Total 110 ml 1000 ml 0 ml Output Total 550 ml 500 ml Balance 110 ml 450 ml -500 ml Exam Free Text/Dictation Constitutional: alert, obese (BMI 27), oriented, No distress Psych: nl mood/affect, No anxiety, No confusion Eyes: EOMI, PERRL, nl conjunctiva, nl sclera ENMT: mucosa pink and moist, nl external ears & nose, nl lips & teeth Neck: non-tender, supple, No jvd Respiratory: normal air movement, No congested cough, No diminished breath sounds, No labored breathing Cardiovascular: regular rate and rhythm, No edema Gastrointestinal: Min tender, soft, min distended, Not firm, rebound or guarding Musculoskeletal: nl extremities to inspection, nl gait and stance, No joint tenderness Extremities: normal pulses, No calf tenderness, No edema Neurological: nl mental status, nl speech, nl strength, No confused Skin: nl turgor, No diaphoresis, No rash or lesions Lymph: nl lymph nodes, nontender Results Free Text/Dictation Path: A-Right colon, hemicolectomy: -- Invasive adenocarcinoma, moderately-differentiated, ascending colon, with ulceration. -- Maximum diameter: 2.5 cm. -- Carcinoma penetrates through muscularis propria into subserosa and mesenteric adipose tissue. -- Carcinoma microscopically extends into the visceral serosal surface. -- Proximal ileal, distal colon and mesenteric margins are clear of carcinoma. -- Nineteen mesenteric lymph nodes are negative for metastatic carcinoma (0/19). B-Liver, wedge biopsy: -- Macrovesicular steatosis, moderate. -- No evidence of hepatitis, cirrhosis or malignancy. SYNOPTIC CASE SUMMARY (A): SPECIMEN: Terminal ileum, cecum, ascending colon and appendix. PROCEDURE: Right hemicolectomy. TUMOR SITE: Ascending colon. TUMOR SIZE: 2.5 cm in greatest dimension (x 2.0 x 0.9 cm). MACROSCOPIC TUMOR PERFORATION: Not identified. HISTOLOGIC TYPE: Adenocarcinoma. HISTOLOGIC GRADE: Low grade (moderately-differentiated). MICROSCOPIC EXTENT OF TUMOR: Carcinoma invades through muscularis propria into subserosal adipose tissue and a microscopic focus extends onto the visceral serosal surface. MARGINS: Proximal ileal, distal colon, and mesenteric margins are clear of carcinoma. Tumor is 7.0 cm from the distal colon margin. LYMPH-VASCULAR INVASION: Not identified. PERINEURAL INVASION: Not identified. TUMOR DEPOSITS: Not identified. REGIONAL LYMPH NODES: 19 mesenteric lymph nodes are negative for metastatic carcinoma (0/19). PATHOLOGIC STAGING (pTNM): pT4a pN0. MODIFIED ASTLER-COLLER: MAC B2 ADDITIONAL PATHOLOGIC FINDINGS: -- Normal appendix. Result Diagram: 05/04/1642905/04/16429 NORA BLEVINS MD May 04, 2016 19:42
[2016-05-04 21:28] VITALS: BP 107/54; RESP 18
[2016-05-04 23:22] VITALS: BP 128/78; PULSE 85; RESP 19
[2016-05-05] MEDS ORDERED: HARD FAT/PHENYLEPHRINE SUPP PR ONE
[2016-05-05] MEDS: D5W-0.45 NACL + KCL 20 MEQ 1,000 ML IV SCH (01:29)
[2016-05-05 06:15] LABS: POTASSIUM 3.6 mmol/L (3.5-5.1)
[2016-05-05] MEDS: METOCLOPRAMIDE 10 MG INJ IV SCH ×2 (06:15→12:00)
[2016-05-05 06:18] LABS: CREATININE 0.57 mg/dl (0.44-1.00)
[2016-05-05 06:19] LABS: CALCIUM 8.5 mg/dl (8.4-10.2); MAGNESIUM 1.9 mg/dl (1.7-2.5); PHOSPHORUS 3.1 mg/dl (2.5-4.9)
[2016-05-05 06:25] LABS: BASOPHILS % 0.5 % (0.0-2.0); EOSINOPHILS # 0.1 10^3/ul (0.0-0.5); EOSINOPHILS % 1.6 % (0.0-7.0); HEMATOCRIT 34.9 % (37.0-47.0); HEMOGLOBIN 11.6 g/dl (12.0-16.0); LYMPHOCYTES # 1.2 10^3/ul (0.8-2.9); LYMPHOCYTES % 29.3 % (15.0-51.0); MEAN CORPUSCULAR HEMOGLOBIN 29.3 pg (29.0-33.0); MEAN CORPUSCULAR HGB CONC 33.4 g/dl (32.0-37.0); MEAN CORPUSCULAR VOLUME 87.8 fl (82.0-101.0); MEAN PLATELET VOLUME 7.9 fl (7.4-10.4); MONOCYTE # 0.6 10^3/ul (0.3-0.9); MONOCYTES % 13.6 % (0.0-11.0); NEUTROPHIL # 2.3 10^3/ul (1.6-7.5); PLATELET COUNT 272 10^3/UL (140-440); RED BLOOD COUNT 3.97 10^6/ul (4.20-5.40); RED CELL DISTRIBUTION WIDTH 14.8 % (11.5-14.5); UNCORRECTED WBC 4.3 10^3/ul (4.8-10.8); WHITE BLOOD COUNT 4.3 10^3/ul (4.8-10.8)
[2016-05-05 06:40] LABS: CONDITION 1; LH ANALYZER COMMENTS 1
[2016-05-05 08:00] VITALS: BP 124/64; RESP 18
[2016-05-05] MEDS ORDERED: FAMOTIDINE 20 MG TAB PO SCH (09:00)
[2016-05-05] MEDS: FENOFIBRATE 48 MG TAB PO SCH (09:36)
[2016-05-05] MEDS: HEPARIN 5,000 UNIT/0.5 ML SYG SC SCH (09:42)
--- NOTE | 2016-05-05 12:19 | PDOCDIS ---
Discharge Instructions DIAGNOSIS Discharge Diagnosis: colon cancer CONDITION Patient Condition: Fair HOME CARE INSTRUCTIONS: Diet Instructions: Reduced Sodium ACTIVITY: Activity Restrictions: Slowly Increase Activity Do not Drive FOLLOW UP/APPOINTMENTS Appointments Dr Suraj Hayward - 1wk PCP -1wk [facility] LUIZ DOE MD May 05, 2016 12:19
[2016-05-05] MEDS ORDERED: METO5TAB11 PO (12:21)
[2016-05-05] MEDS ORDERED: ANUHCSUP PR (12:21)
[2016-05-05] MEDS ORDERED: IBUP800T25 PO (12:21)
[2016-05-05] MEDS ORDERED: DOCU-144 PO (12:21)
[2016-05-05] MEDS ORDERED: IBUPROFEN 800 MG TAB PO PRN (12:30)
[2016-05-05] MEDS: SOD FERRIC GLUC COMPLX 125 MG in SOD CHLORIDE 0.9% 100 ML IVPB SCH (12:30)
[2016-05-05] MEDS ORDERED: DOCUSATE SODIUM 100 MG CAP PO PRN (12:30)
[2016-05-05] MEDS ORDERED: HYDROCORTISONE 25 MG SUPP PR PRN (12:30)
--- NOTE | 2016-05-05 15:28 | PN ---
Date/Time of Note Date/Time of Note DATE: 05/05/16 TIME: 15:25 Assessment/Plan Lines/Catheters IV Catheter Type (from [facility]): Peripheral IV Coronel in Place (from [facility]): No Assessment/Plan Chief Complaint/Hosp Course 1. 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 -oob/ambulate -IS -diet as tolerated -onc f/u appreciated -dc planning 2. Paralytic ileus, resolved -oob/ambulate -diet 3. BMI 27 -encourage diet optimization -encourage exercise optimization 4. Hepatic steatosis -diet/lifestyle optimization -outpt gi/medical follow up 5. Leukocytosis improved 6. Min blood on stool with hemorrhoids -outpt f/u and monitor Thank you, Problems: Subjective 24 Hr Interval Summary Path noted. Flatus and bms on soft diet. No f/c. Min nausea but no vomiting. Min abdominal pain. No cp/sob. No cough. No sz. No rash. No bullard/dizzy/ visual or neuro changes. No dysuria. Min blood on stool. Hemorrhoids. Hg stable. Exam/Review of Systems Vital Signs Vitals Vital Signs Date Time Temp Pulse Resp B/P Pulse Ox O2 Delivery O2 Flow Rate FiO2 05/05/16 08:00 97.9 78 18 124/64 98 05/04/16 23:22 Room Air Intake and Output 05/04/16 05/04/16 05/05/16 15:00 23:00 07:00 Intake Total 110 ml 880 ml 940 ml Balance 110 ml 880 ml 940 ml Exam Free Text/Dictation Constitutional: alert, obese (BMI 27), oriented, No distress Psych: nl mood/affect, No anxiety, No confusion Eyes: EOMI, PERRL, nl conjunctiva, nl sclera ENMT: mucosa pink and moist, nl external ears & nose, nl lips & teeth Neck: non-tender, supple, No jvd Respiratory: normal air movement, No congested cough, No diminished breath sounds, No labored breathing Cardiovascular: regular rate and rhythm, No edema Gastrointestinal: Min tender, soft, min distended, Not firm, rebound or guarding. Hemorrhoids. Musculoskeletal: nl extremities to inspection, nl gait and stance, No joint tenderness Extremities: normal pulses, No calf tenderness, No edema Neurological: nl mental status, nl speech, nl strength, No confused Skin: nl turgor, No diaphoresis, No rash or lesions Lymph: nl lymph nodes, nontender Results Result Diagram: 05/05/16 0435 05/05/16 0435 NORA BLEVINS MD May 05, 2016 15:28
--- NOTE | 2016-05-05 16:11 | DS ---
DATE OF ADMISSION: 04/24/2016 DATE OF DISCHARGE: 05/05/2016 PRIMARY CARE PHYSICIAN: Unknown. [employer] OPERATOR: Dr. Hayward, Dr. Kent and Dr. Maxwell. DIAGNOSIS ON ADMISSION: Bowel obstruction, pre-diabetes. DIAGNOSES ON DISCHARGE: 1. Bowel obstruction, colon cancer, postop ileus, anemia, leukopenia and deconditioning. HOSPITAL COURSE: A 71-year-old female admitted with a bowel obstruction, found to have ascending co arnoldo mas. Seen by GI and oncology and then general surgery. She underwent a right colectomy with l iver wedge resection biopsy and extensive lysis of adhesions from her previous operations, along wi th laparoscopic implantation of Xenograft biologic over the anastomosis for improved healing. Posto perative hospitalization was uncomplicated except for postoperative ileus. She refused an NG for ga stric distention. She is presently tolerating a diet with moderate discomfort, but otherwise stable and fit for discharge. She is tolerating diet. ____colon cancer, moderately differentiated T4a NO stage IIB. DISCHARGE PLAN: Home. Follow up with surgery in 1 week, oncology in 1 month, primary in 1 week. DIET: Regular. ACTIVITY: No heavy lifting. ALLERGIES: None. CODE STATUS: FULL. CONDITION: Good. REASON FOR ADMISSION: Bowel obstruction. PENDING TESTS: None. FUNCTIONAL STATUS: Awake, alert and agrees to the plan of care. IMAGING STUDIES: Last KUB from ____ shows gaseous distention of stomach, improved small-bowel obstr uction or ileus, mild DJD. CAT scan on admission read as fat infiltration of liver. Large amount of formed stool within the cecum with associated, ileus dilatation of the ileal small bowel with int raluminal fecal material. There is an abrupt narrowing of the proximal midportion of the descending colon with infiltration of the immediate surrounding mesocolon fat. Tiny mesocolic lymph nodes are also present. An obstructing colonic lesion of the proximal mid portion of the ascending colon was concerning. ____contrast CT, may be feasible. Chest x-ray: No acute process. The carcinoma pene trates through the muscularis propria into subserosal and mesenteric adipose tissue. Extending into the visceral serosal surface, proximal ileocolonic, distal and mesenteric margins are clear, 19 me senteric lymph nodes are negative. Liver wedge biopsy macrovesicular steatosis, moderate; no eviden ce of malignancy or cirrhosis, pT4a PN0. Normal appendix. LABORATORIES: Urine culture unremarkable. INR 1. CBC unremarkable. LFTs okay, ferritin of 10____ , iron of 39, binding capacity of 386, CEA of 7.5. Alpha fetoprotein 2.9. CA 19-9 and CA-125 nor mal. TSH of 1.3. Free T4 of 0.9, triglycerides 190, total of 165, LDL of 90, HDL 35. A1c of 5.8. MEDICATIONS: 1. Colace 100 b.i.d. 2. Anusol-HC b.i.d. 25 mg OH. 3. Motrin 800 mg every 6 p.r.n. pain. 4. Reglan 5 mg 3 times daily p.o. Dictated By: LUIZ DEO MD AC/NTS Conf#: [id number] DID#: [id number] CC: JOSETTE KENT MD; NORA HAYWARD MD; DAV MAXWELL;*EndCC*
--- NOTE | 2016-05-05 17:40 | CONS ---
Date/Time of Note Date/Time of Note DATE: 05/05/16 TIME: 17:36 Assessment/Plan Assessment/Plan Chief Complaint/Hosp Course Abdominal pain /nausea/vomiting,associated with colonic mass in the mid Ascending colon, c/w adenoca- PATHOLOGIC STAGING (pTNM): pT4a pN0. MODIFIED ROBBIN: MAC B2 * POST OP * F-UP OUTPT * PT IS A CANDIDATE FOR ADJUVANT CHEMO, CONSIDERING INITIAL PRESENTATION WITH BOWEL OBSTRUCTION AND T4 DIS Normocytic anemia WITH N RDW * Monitor H&H every 6 hours, transfuse 2 units for hemoglobin less than 7.5 * PPI therapy * IRON STUDIES AND FERRITIN- REVIEWED * CONT IV IRON HYPOKALEMIA REPLACE MONITOR INCREASED TOTAL PROTEIN IMPROVED Obesity Problems: Consultation Date/Type/Reason Admit Date/Time Apr 24, 2016 at 10:36 Initial Consult Date 04/25/16 [facility] Referring Provider: MICHAEL FUCHS 24 HR Interval Summary Free Text/Dictation ALL NOTED IMPROVING D/W WITH PATHOLOGY Exam/Review of Systems Vital Signs Vitals Vital Signs Date Time Temp Pulse Resp B/P Pulse Ox O2 Delivery O2 Flow Rate FiO2 05/05/16 08:00 97.9 78 18 124/64 98 05/04/16 23:22 Room Air Intake and Output 05/04/16 05/04/16 05/05/16 15:00 23:00 07:00 Intake Total 110 ml 880 ml 940 ml Balance 110 ml 880 ml 940 ml Exam Constitutional: alert, obese (BMI 27), oriented, No distress Psych: nl mood/affect, No anxiety, No confusion Eyes: EOMI, PERRL, nl conjunctiva, nl sclera ENMT: mucosa pink and moist, nl external ears & nose, nl lips & teeth Neck: non-tender, supple, No jvd Respiratory: normal air movement, No congested cough, No diminished breath sounds, No labored breathing Cardiovascular: regular rate and rhythm, No edema Gastrointestinal: Min tender, soft, min distended, Not firm, rebound or guarding. Hemorrhoids. Musculoskeletal: nl extremities to inspection, nl gait and stance, No joint tenderness Extremities: normal pulses, No calf tenderness, No edema Neurological: nl mental status, nl speech, nl strength, No confused Skin: nl turgor, No diaphoresis, No rash or lesions Lymph: nl lymph nodes, nontender Results Result Diagram: 05/05/16 0435 05/05/16 0435 Results 24 hrs Laboratory Tests Test 05/05/16 04:35 Anion Gap 18 H Basophils # 0.0 Basophils % 0.5 Blood Morphology Comment Blood Urea Nitrogen 18 Calcium Level 8.5 Carbon Dioxide Level 20 L Chloride Level 105 Creatinine 0.57 Eosinophils # 0.1 Eosinophils % 1.6 Glucose Level 132 Hematocrit 34.9 L Hemoglobin 11.6 L Lymphocytes # 1.2 Lymphocytes % 29.3 Magnesium Level 1.9 Mean Corpuscular Hemoglobin 29.3 Mean Corpuscular Hemoglobin Concent 33.4 Mean Corpuscular Volume 87.8 Mean Platelet Volume 7.9 Monocytes # 0.6 Monocytes % 13.6 H Neutrophils # 2.3 Neutrophils % 55.0 Nucleated Red Blood Cells # 0.0 Nucleated Red Blood Cells % 0.0 Phosphorus Level 3.1 Platelet Count 272 Potassium Level 3.6 Red Blood Count 3.97 L Red Cell Distribution Width 14.8 H Sodium Level 139 White Blood Count 4.3 L Medications Medications Current Medications Ondansetron HCl (Zofran Inj) 4 mg Q6H PRN IV NAUSEA AND/OR VOMITING Last administered on 05/04/16 09:08; Admin Dose 4 MG; Start 04/22/16 at 19:00 Acetaminophen (Tylenol Tab) 650 mg Q6H PRN PO PAIN LEVEL 1-3 OR FEVER Last administered on 04/30/16 20:16; Admin Dose 650 MG; Start 04/22/16 at 19:00 Acetaminophen/ Hydrocodone Bitart ([place] (5/325)) 1 tab Q6H PRN PO MODERATE PAIN LEVEL 4-6 Last administered on 05/02/16 19:00; Admin Dose 1 TAB; Start 04/22/16 at 19:00 Magnesium Hydroxide (Milk Of Mag) 30 ml DAILY PRN PO CONSTIPATION; Start at 19:00 Sodium Biphosphate/ Sodium Phosphate (Fleet Enema) 133 ml DAILY PRN MO CONSTIPATION; Start 04/22/16 at 19:00 Heparin Sodium (Porcine) (Heparin (5000 Units/0.5 ml)) 5,000 unit Q12 SC Last administered on 05/05/16 09:42; Admin Dose 5,000 UNIT; Start 04/22/16 at 21:00 Nitroglycerin (Nitroglycerin (Sl Tab) 0.4 Mg) 1 tab Q5M PRN SL ANGINA; Start at 19:00 Fenofibrate (Tricor) 48 mg DAILY PO Last administered on 05/05/16 09:36; Admin Dose 48 MG; Start 04/24/16 at 09:00 Guaifenesin 200 mg 200 mg Q4H PRN PO COUGH Last administered on 04/26/16 12:44 ; Admin Dose 200 MG; Start 04/26/16 at 12:00 Ferric Sodium Gluconate Complex/ Sodium Chloride (Ferrlecit/NS) 110 ml @ 110 mls/hr Q24H IVPB Last administered on 05/04/16 12:48; Admin Dose 110 MLS/HR; Start 04/29/16 at 12:30; Stop 05/06/16 at 13:29 Famotidine (Pepcid) 20 mg DAILY PO Last administered on 05/05/16 09:36; Admin Dose 20 MG; Start 05/05/16 at 09:00 Morphine Sulfate (morphine) 2 mg Q12H PRN IV SEVERE PAIN LEVEL 7-10; Start at 21:00 Ibuprofen (Motrin) 800 mg Q6H PRN PO PAIN; Start 05/05/16 at 12:30 Hydrocortisone (Anusol-Hc Supp) 25 mg BID PRN MO HEMORROID PAIN/ITCHING Last administered on 05/05/16 14:41; Admin Dose 25 MG; Start 05/05/16 at 12:30 Docusate Sodium (Colace) 100 mg BID PRN PO CONSTIPATION; Start 05/05/16 at 12: 30 Metoclopramide HCl (Reglan) 5 mg TID PO ; Start 05/06/16 at 09:00 Procedures Procedures [facility] asset [address] [place] [address] ; Lab No: [id number] Date: 04/29/2016 SPECIMEN: A-Right colon, resection B-Liver biopsy CLINICAL: Right colon neoplasm GROSS EXAMINATION: A-Received in formalin is a right hemicolectomy that consists of a 6.0 cm segment of terminal ileum with an attached cecum and ascending colon measuring 16.5 cm from the ileocecal valve to distal margin with an overall measurement of 21.5 cm. The proximal margin of resection is closed with metallic charly that measure 2.7 cm in diameter and the distal margin is 3.1 cm in diameter. The serosa of the terminal ileum is cotto-pink, smooth and glistening and protruding from the serosa of the cecum is a unremarkable appendix 6.0 cm long, 0.8 cm in diameter that is uniformly cotto-pink, smooth and glistening. The serosa of the cecum and ascending colon is cotto- pink and the serosa of the proximal transverse colon is cotto-pink, smooth and glistening. The pericolic adipose tissue is up to 5.5 cm wide, lobular and soft. Opening the terminal ileum reveals a normally folded cotto-pink mucosa and the ileocecal valve is unremarkable. The mucosa of the cecum is stained yellow-green, normally wrinkled. 6.5 cm distal to the ileocecal valve and 7.0 cm from the distal margin is a nearly circumferential centrally umbilicated tumor measuring 2.5 x 2.0 cm and the opposite serosa is marked with black ink. Sectioning the tumor reveals extension through the muscularis propria to the subserosa with a maximum thickness of 0.9 cm. The mesenteric margin is 10.4 cm from the tumor and is marked with orange ink and is shaved. Sectioning the pericolic adipose tissue reveals multiple cotto-pink lymph nodes that measure from 0.2 cm in greatest dimension up to 0.4 x 0.3 x 0.2 cm. Representatively sampled in 14 cassettes as follows: A1, shave of the proximal margin of the terminal ileum; A2, shave of the distal colon margin; A3, ileocecal valve with adjacent mucosa; A4, appendix; A5-A9, full thickness sections of the tumor to include adjacent mucosa; A10, section of distal mucosa and wall; A11, section of the mesenteric margin marked with orange ink; A12-A14, multiple pericolic lymph nodes. B-Received in formalin is a wedge resection of cotto and yellow-brown hepatic tissue that weighs 1.0 gram and measures 1.0 x 0.9 x 0.6 cm. Sectioning reveals a micronodular cotto and yellow- brown, cut surface and no mass is identified. Totally submitted in cassette B. MICROSCOPIC DESCRIPTION: B-A wedge biopsy of liver demonstrates preservation of portal to terminal vein relationships. Portal zones are generally normal with only an isolated portal zone containing a scant inflammatory infiltrate consisting of a few small lymphocytes. No interface inflammation is seen. Bile ducts and ductules appear normal and there is no portal fibrosis. Lobules show preservation of hepatic cord pattern. There is moderate central lobular macrovesicular steatosis and mild hydropic change of hepatocytes. There is no necroinflammatory change or acute inflammation of the lobules. No Jenn bodies, ground-glass hepatocytes or granulomas are identified. There is no bile stasis. An iron stain is negative for hemosiderin. No alpha-1- antitrypsin droplets are identified in a PAS diastase stain. No portal or pericellular fibrosis is present in trichrome and reticulin stains. All special stains are accompanied by positive controls that are concurrently reviewed. There is no evidence of malignancy. The histopathologic features are those of moderate macrovesicular steatosis. No steatohepatitis is identified. MICROSCOPIC DIAGNOSIS: A-Right colon, hemicolectomy: -- Invasive adenocarcinoma, moderately-differentiated, ascending colon, with ulceration. -- Maximum diameter: 2.5 cm. -- Carcinoma penetrates through muscularis propria into subserosa and mesenteric adipose tissue. -- Carcinoma microscopically extends into the visceral serosal surface. -- Proximal ileal, distal colon and mesenteric margins are clear of carcinoma. -- Nineteen mesenteric lymph nodes are negative for metastatic carcinoma (0/19). B-Liver, wedge biopsy: -- Macrovesicular steatosis, moderate. -- No evidence of hepatitis, cirrhosis or malignancy. SYNOPTIC CASE SUMMARY (A): SPECIMEN: Terminal ileum, cecum, ascending colon and appendix. PROCEDURE: Right hemicolectomy. TUMOR SITE: Ascending colon. TUMOR SIZE: 2.5 cm in greatest dimension (x 2.0 x 0.9 cm). MACROSCOPIC TUMOR PERFORATION: Not identified. HISTOLOGIC TYPE: Adenocarcinoma. HISTOLOGIC GRADE: Low grade (moderately-differentiated). MICROSCOPIC EXTENT OF TUMOR: Carcinoma invades through muscularis propria into subserosal adipose tissue and a microscopic focus extends onto the visceral serosal surface. MARGINS: Proximal ileal, distal colon, and mesenteric margins are clear of carcinoma. Tumor is 7.0 cm from the distal colon margin. LYMPH-VASCULAR INVASION: Not identified. PERINEURAL INVASION: Not identified. TUMOR DEPOSITS: Not identified. REGIONAL LYMPH NODES: 19 mesenteric lymph nodes are negative for metastatic carcinoma (0/19). PATHOLOGIC STAGING (pTNM): pT4a pN0. MODIFIED ASTLER-COLLER: MAC B2 ADDITIONAL PATHOLOGIC FINDINGS: -- Normal appendix. COMMENT: This patient had a previous mid-ascending colon mass biopsy showing moderately- differentiated adenocarcinoma ([id number]; 05/04/16). MP/BUSTER/carlos/dionne Date of Service: 04/29/16; Date Received: 04/29/16 Dictated: 05/01/16; Transcribed: 05/04/16; Sent by Fax: 05/04/16; Reviewed: PATRICIA Bowers M.D. Pathologist Electronically Signed 05/04/2016 ALEJANDRA BOWERS M.D. 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
[2016-05-05] MEDS ORDERED: morphine 2 MG INJ IV PRN (21:00)
[2016-05-06] MEDS ORDERED: METOCLOPRAMIDE 5 MG TAB PO SCH (09:00)
== END 2016-05-05 19:11 | disposition home health service (06) | DRG 330 ==
LOC: E/R 12:22 → PP2 17:47 → OBSVTOIN 04-24 10:36 → PP2 05-01 20:32
PROVIDERS: ADMIT Hospitalist; ATTEND Hospitalist
PROC: 0DBK8ZX Excision of Ascending Colon, Via Natural or Artificial Opening Endoscopic, Diagnostic (ICD-10-PCS; 2016-04-24)
PROC: 0DNF4ZZ Release Right Large Intestine, Percutaneous Endoscopic Approach (ICD-10-PCS; 2016-04-29)
PROC: 0DU Gastrointestinal System, Supplement (ICD-10-PCS; 2016-04-29)
PROC: 0FB04ZX Excision of Liver, Percutaneous Endoscopic Approach, Diagnostic (ICD-10-PCS; 2016-04-29)
PROC: 0DTF4ZZ Resection of Right Large Intestine, Percutaneous Endoscopic Approach (ICD-10-PCS; principal; 2016-04-29 07:30)
DX: C18.2 Malignant neoplasm of ascending colon (principal); E87.0 Hyperosmolality and hypernatremia; K56.0 Paralytic ileus; K76.0 Fatty (change of) liver, not elsewhere classified; E66.9 Obesity, unspecified; E87.5 Hyperkalemia; K63.9 Disease of intestine, unspecified; K64.8 Other hemorrhoids; Z68.26 Body mass index [BMI] 26.0-26.9, adult; R11.2 Nausea with vomiting, unspecified; E87.6 Hypokalemia; K66.0 Peritoneal adhesions (postprocedural) (postinfection); D50.9 Iron deficiency anemia, unspecified
CPT/HCPCS: 71010; 74000; 74176; 74177; 80048; 80053; 80061; 81003; 82105; 82378; 82728; 83036; 83540; 83690; 83735; 84100; 84439; 84443; 85025; 85610; 85730; 86301; 86304; 87086; 88305; 88307; 88313; 93306; G0378; A4310; C9113; J0330; J0690; J0696; J1170; J2270; J2405; J2710; J2765; J2795; J2916; J3010; J3480; J7040; Q4119; Q9967